=== PATIENT | male | born 1950 | race Caucasian/White ===

== ENCOUNTER 2020-10-08 07:05 | Outpatient (REF) | payer OTHER, SELFPAY ==
[2020-10-08 12:09] LABS: Cholesterol 124 mg/dL; HDL Cholesterol 36 mg/dL; LDL Cholesterol Calculated 61 mg/dl; Triglycerides 138 mg/dL
== END 2020-10-08 07:06 | disposition home or self-care (01) ==
LOC: HO.HMGCLDS 07:05
PROVIDERS: PCP Nurse Practitioner Family; Visit Provider Nurse Practitioner Family
DX: E78.5 Hyperlipidemia, unspecified (principal)
CPT/HCPCS: 36415; 80061

== ENCOUNTER 2020-11-26 07:47 | Outpatient (REF) | payer OTHER, SELFPAY ==
[2020-11-26 11:50] LABS: Alanine Aminotransferase 27 U/L (0-40); Albumin Level 4.4 g/dL (3.5-5.0); Alkaline Phosphatase 70 U/L (39-117); Anion Gap 14 (12-20); Aspartate Amino Transferase 24 U/L (5-37); Bilirubin Total 1.5 mg/dL (0.0-1.0); Blood Urea Nitrogen 25 mg/dL (9-16); Calcium 9.5 mg/dL (8.4-10.2); Carbon Dioxide 31 mmol/L (22-29); Chloride 103 mmol/L (96-108); Cholesterol 122 mg/dL; Estimated Glomerular Filt Rate 55; Glucose Fasting 100 mg/dL (60-99); HDL Cholesterol 39 mg/dL; LDL Cholesterol Calculated 68 mg/dl; Potassium 3.8 mmol/L (3.3-5.1); Sodium 144 mmol/L (135-145); Total Protein 6.5 g/dL (6.5-8.0); Triglycerides 79 mg/dL
[2020-11-26 12:12] LABS: Prostate Specific Antigen Scr 1.23 ng/mL (<0.05-4.0); TSH reflex Free T4 0.87 uIU/mL (0.32-4.0)
== END 2020-11-26 07:48 | disposition home or self-care (01) ==
LOC: HO.HMGCLDS 07:47
PROVIDERS: PCP Nurse Practitioner Family; Visit Provider Nurse Practitioner Family
DX: Z00.00 Encounter for general adult medical examination without abnormal findings (principal); R17 Unspecified jaundice; Z12.5 Encounter for screening for malignant neoplasm of prostate
CPT/HCPCS: 36415; 80053; 80061; 84153; 84443

== ENCOUNTER 2020-11-27 08:08 | Outpatient (REF) | payer OTHER, SELFPAY ==
--- NOTE | 2020-11-27 08:10 | EMG_ITS ---
Right tibial and peroneal motor studies were performed. Right superficial peroneal and sural sensory studies were performed and tibial H-reflex was obtained. Paraspinal muscles were tested with a needle. 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 MD HEIDI Bartholomew/GIDEON / [id number]
== END 2020-11-27 08:09 | disposition home or self-care (01) ==
LOC: HO.NEURO 08:08
PROVIDERS: PCP Nurse Practitioner Family; Visit Provider Nurse Practitioner Family
DX: G62.9 Polyneuropathy, unspecified (principal)
CPT/HCPCS: 95886; 95909

== ENCOUNTER 2020-11-27 13:26 | Outpatient (REF) | payer OTHER, SELFPAY ==
--- NOTE | ~2020-11-27 | US_ITS ---
EXAMINATION: US SCROTUM CLINICAL INFORMATION: Left testicular pain. COMPARISON: Ultrasound scrotum 04/06/2017. TECHNIQUE: A sonogram of the scrotum was performed assessing shrestha-scale appearance and color Doppler flow. Spectral Doppler analysis of the arterial and venous flow were performed in the testes bilaterally. FINDINGS: RIGHT: Right testicle measures 3.5 x 2.2 x 3.4 cm, volume 13.6 mL. No focal testicular parenchymal lesions are visualized. Spectral Doppler analysis of the arterial and venous flow is normal in the right testis. Right epididymal head is normal in size. 2 right epididymal cysts are noted, measuring 1 and 0.6 cm in greatest diameter. There is a prominent right-sided varicocele. Blood flow within the epididymis itself appears normal. Small right hydrocele. LEFT: Left testicle measures 3.1 x 2.7 x 3.6 cm, volume 15.5 mL. 2 very small intratesticular cystic foci are noted, measuring 3 and 2 mm in greatest diameter. No focal testicular parenchymal lesions are visualized. Spectral Doppler analysis of the arterial and venous flow is normal in the left testis. Left epididymal head is normal in size. No left hydrocele is seen. A few cysts are present within the left epididymal head, the largest of which measures 3 mm in diameter. There is a large left-sided varicocele Left epididymal Doppler flow is normal. US/US scrotum IMPRESSION: Large bilateral varicoceles, left side greater than right. Multiple epididymal head cysts, right larger than left. Small right hydrocele.
== END 2020-11-27 13:27 | disposition home or self-care (01) ==
LOC: HO.US 13:26
PROVIDERS: PCP Nurse Practitioner Family; Visit Provider Nurse Practitioner Family
DX: N50.812 Left testicular pain (principal)
CPT/HCPCS: 76870

== ENCOUNTER → 2021-01-01 14:51 | Outpatient (BNVA) | payer OTHER, SELFPAY | PROVIDERS: PCP Nurse Practitioner Family; Visit Provider Urology ==

== ENCOUNTER 2021-01-20 11:56 | Outpatient (REF) | payer OTHER, SELFPAY ==
[2021-01-20 14:48] LABS: Influenza A PCR NEGATIVE (Negative); Influenza B PCR NEGATIVE (Negative); Resp Syncy Virus RNA Qual PCR NEGATIVE (Negative); SARS COV2 PCR INHOUSE NEGATIVE (Negative)
== END 2021-01-20 11:57 | disposition home or self-care (01) ==
LOC: HO.LAB 11:56
PROVIDERS: Visit Provider Nurse Practitioner Family
DX: Z20.822 Contact with and (suspected) exposure to COVID-19 (principal); J01.90 Acute sinusitis, unspecified
CPT/HCPCS: 0241U; 36415

== ENCOUNTER 2021-02-02 09:58 | Day surgery (SDC) | payer OTHER, SELFPAY ==
[2021-01-16 13:23] VITALS: BMI 30.2
[2021-02-02 10:15] VITALS: BP 152/71; PULSE 68; RESP 20; TEMP 36.9; O2SAT 95
--- NOTE | 2021-02-02 10:19 | P.CONAN_ITS ---
[facility] Active Problems Active Problems: All Active Problems (Updated 01/20/21 @ 11:56 by Swathi Glass NP) Acute sinusitis (Acute) Physical exam (Acute) Screening PSA (prostate specific antigen) (Acute) Neuropathy (Acute) Left testicular pain (Acute) Elevated bilirubin (Acute) Varicocele (Acute) Past Medical History Medical History COVID-19 vaccine administered GERD (gastroesophageal reflux disease) History of MRSA infection Hx of vertigo Hyperlipidemia Hypertension Sleep apnea Subdural hematoma Family History Family History Father Diabetes Hypertension Mother No problems noted. Surgical History Surgical History H/O colonoscopy History of incision and drainage Hx of appendectomy Hx of varicose vein stripping Social History Social History Are you a primary assurance services manager health care to a significant other at home: No Do you presently have visiting nurse or other home services: No Alcohol intake: current Alcohol intake frequency: a few times a month Patient Tobacco Use Status: Former Tobacco user Quit Date: 1995 Tobacco use type: Cigarette Years Smoked: 5 Use of substances other than those prescribed or required for medical reasons: No Have you been hit, kicked, punched, or otherwise hurt by someone within the past year? If so, by whom?: No Are you DNR?: No Advance Directives: Yes (daughter and ) Advance Directives Information Provided: No Advance Directives on File: No (advised to bring form day of surgery) Advance Directives Date on File: 02/02/21 Recently lost weight without trying: No Eating poorly because of decreased appetite: No Nutrition Risks: No Nutritional Risk Poor oral hygiene: No Meds Allergies Allergy/AdvReac Type Severity Reaction Status Date / Time sulfamethoxazole Allergy Intermediate HIVES Verified 01/20/21 11:20 [From BACTRIM] trimethoprim [From BACTRIM] Allergy Intermediate HIVES Verified 01/20/21 11:20 Home Medications Medication Instructions Recorded Confirmed Last Taken Type lisinopril 10 1 tab PO DAILY 10/22/20 01/16/21 Unknown History mg-hydrochlorothiazide 12.5 mg tablet hydrocortisone-acetic acid 1 %-2 % 5 drp OTIC (EARS) DAILY 01/01/21 01/16/21 Unknown History ear drops meclizine 25 mg tablet 25 mg PO BID PRN 01/01/21 01/16/21 Unknown History omeprazole magnesium [Prilosec OTC] 20 mg PO DAILY 01/16/21 01/16/21 02/02/21 History Exam Exam Date and Time: February 02, 2021 1019 Height,Weight and Vital Signs: Height 5 ft 9 in Weight 92.986 kg Last Vital Signs Temp 98.4 F 02/02/21 10:15 Pulse 68 02/02/21 10:15 Resp 20 02/02/21 10:15 BP 152/71 H 02/02/21 10:15 Pulse Ox 95 02/02/21 10:15 Airway Mallampati Class: II TM Dist: >3cm Neck ROM: Full Assessment and Plan Assessment Anesthesia Assessment: Anesthesia Plan Discussed and Chart Reviewed Final Anesthetic Review NPO: Yes ASA Class: II Final Preanesthetic Review: No Changes in Pt Med Stat, Meds/Allgs Chart Reviewed, Consent Obtained/Reviewed and Anes Risks/Benef Reviewed Patient Risk: Intermediate Procedure Risk: Low Assessment/Block/Sedation in SS: Assess/Block/Sedation-SS Anesthetic Plan Anesthetic Plan: GA Disposition: Standard PACU
[2021-02-02] MEDS: Lactated Ringers 500 ML 20 ML IVCONT (10:30)
--- NOTE | 2021-02-02 10:41 | MHC.SHP ---
Pre-Procedural Eval Section A Date of Service: 02/02/21 The patient is an INPATIENT: No Changes since office visit: No Cold of Flu in the past 2 weeks, No New Medical Problems, No Changes in Medication and No Patient answered all questions The History & Physical has been completed within 30 days and I have reviewed it.: Yes Section B Chief Complaint: scrotal varices Allergies: Allergies Allergy/AdvReac Type Severity Reaction Status Date / Time sulfamethoxazole Allergy Intermediate HIVES Verified 01/20/21 11:20 [From BACTRIM] trimethoprim [From BACTRIM] Allergy Intermediate HIVES Verified 01/20/21 11:20 Plan Diagnosis/Plan: Unchanged ( left testicular denervation) I have reviewed the history and physical and performed a pertinent physical examination on my patient. No changes have occurred unless specified.
--- NOTE | 2021-02-02 12:32 | P.OP_ITS ---
Operative Note Operative Note Date of Service: 02/02/21 Narrative: PreOperative Diagnosis: persistent left orchalgia Post Operative Diagnosis: same Procedure: left subinguinal microscopic denervation of the testicular cord In varicocelectomy Surgeon: Dr William Jha Anesthesia: general Indications for procedure: this is a 70-year-old male. Persistent left testicular pain. Procedure: After informed consent was verified the patient was brought to the operating room and placed in a supine position. anesthesia was administered per protoco l. the patient was prepped and draped in sterile fashion. Safety pause was performed. Antibiotics had been given. The left inguinal canal was palpated. A subinguinal incision was marked. The a karen was infiltrated with local anesthetic. Using a 15 blade incision was made through the skin into the subcutaneous tissue. Dissection was taken down to the level of the cord. Cord was isolated in elevated to the skin level. This was placed on a tongue depressor backboard. Fat around the cord was divided. The outer layer of muscle sheath was divided circumferentially as part of the denervation procedure. A bipolar was used in order to minimize cautery spread. Veins were skeletonized. The cord itself was very atretic. This 3 primary veins were then isolated and divided. 3-0 silk was used to tie each end before the intervening segment was divided. Care was taken to leave lymphatics. The bundle was checked with a Doppler in 1 vessel identified as the artery. Once this area had been managed the cord was released back into the incision. The wound was irrigated. Tissue was reapproximated using interrupted 3-0 Vicryl sutures. Skin edges reapproximated using a running 4-0 Monocryl suture. Final dressing was placed He tolerated the procedure well was extubated in operating room transferred in stable condition to the recovery area. Pathology: none Drains: none
[2021-02-02 12:40] VITALS: BP 147/71; PULSE 60; RESP 16; TEMP 36.4; O2SAT 97
[2021-02-02 12:45] VITALS: BP 159/63; PULSE 66; RESP 16; O2SAT 98
[2021-02-02 12:50] VITALS: BP 106/66; PULSE 62; RESP 16; O2SAT 97
[2021-02-02 12:55] VITALS: BP 123/71; PULSE 67; RESP 16; O2SAT 93
[2021-02-02 13:10] VITALS: BP 131/72; PULSE 60; RESP 16; TEMP 36.4; O2SAT 94
== END 2021-02-02 13:54 | disposition home or self-care (01) ==
PROVIDERS: PCP Nurse Practitioner Family; Visit Provider Urology
PROC: (CPT 55530; principal; 2021-02-02 11:20)
DX: I86.1 Scrotal varices (principal); N50.812 Left testicular pain; Z86.14 Personal history of Methicillin resistant Staphylococcus aureus infection; I10 Essential (primary) hypertension; G47.33 Obstructive sleep apnea (adult) (pediatric); E78.5 Hyperlipidemia, unspecified; Z79.899 Other long term (current) drug therapy; Z88.2 Allergy status to sulfonamides; Z88.8 Allergy status to other drugs, medicaments and biological substances; Z87.891 Personal history of nicotine dependence
CPT/HCPCS: 55530; J0690; J1100; J1885; J2405; J3010

== ENCOUNTER → 2021-02-16 13:00 | Outpatient (BNVA) | payer OTHER, SELFPAY | PROVIDERS: PCP Nurse Practitioner Family ==

== ENCOUNTER → 2021-03-04 09:44 | Outpatient (BNVA) | payer OTHER, SELFPAY | PROVIDERS: PCP Nurse Practitioner Family; Visit Provider Urology ==

== ENCOUNTER → 2021-04-07 08:40 | Outpatient (BNVA) | payer OTHER, SELFPAY | PROVIDERS: PCP Nurse Practitioner Family; Visit Provider Urology ==

== ENCOUNTER 2021-04-10 09:40 | Outpatient (REF) | payer OTHER, SELFPAY ==
[2021-04-10 11:40] LABS: Bilirubin Direct 0.3 mg/dL (0.0-0.5); Bilirubin Total 0.6 mg/dL (0.0-1.0)
[2021-04-17 01:41] LABS: Testosterone, Total 233 ng/dL (250-1100)
[2021-04-18 15:45] LABS: Testosterone, Total 221 ng/dL (250-1100)
== END 2021-04-10 09:41 | disposition home or self-care (01) ==
LOC: HO.HMGCLDS 09:40
PROVIDERS: PCP Nurse Practitioner Family; Visit Provider Urology
DX: R68.82 Decreased libido (principal); E29.1 Testicular hypofunction; R17 Unspecified jaundice
CPT/HCPCS: 36415; 82247; 82248; 84402; 84403

== ENCOUNTER 2021-04-17 13:25 | Outpatient (REF) | payer OTHER, SELFPAY ==
[2021-04-22 13:46] LABS: Testosterone, Total 282 ng/dL (250-1100)
== END 2021-04-17 13:26 | disposition home or self-care (01) ==
LOC: HO.HMGCLDS 13:25
PROVIDERS: PCP Nurse Practitioner Family; Visit Provider Urology
DX: R68.82 Decreased libido (principal)
CPT/HCPCS: 36415; 84403

== ENCOUNTER → 2021-04-24 09:38 | Outpatient (BNVA) | payer OTHER, SELFPAY | PROVIDERS: PCP Nurse Practitioner Family; Visit Provider Urology ==

== ENCOUNTER → 2021-04-28 09:38 | Outpatient (BNVA) | payer OTHER, SELFPAY | PROVIDERS: PCP Nurse Practitioner Family; Visit Provider Urology ==

== ENCOUNTER 2021-06-08 | Outpatient (REF) | payer OTHER, SELFPAY | END 2021-06-08 00:01 | disposition home or self-care (01) | LOC: HO.LNP | PROVIDERS: Visit Provider Physician Assistant Medical | DX: Z13.89 Encounter for screening for other disorder (principal) ==

== ENCOUNTER 2021-06-08 17:03 | Outpatient (REF) | payer OTHER, SELFPAY ==
--- NOTE | ~2021-06-08 | XR_ITS ---
EXAMINATION: XR chest 2V CLINICAL INFORMATION: Cough COMPARISON: Prior chest x-ray 05/06/2020 TECHNIQUE: XR chest 2V Lungs and Blanquita: Linear opacity left lung base probably platelike atelectasis. This is chronic unchanged. Pleura: Normal. Costophrenic angles are sharp. No pneumothorax. Heart: Heart mildly enlarged unchanged. No failure. Pericardial fat pad seen best on lateral view unchanged. Mediastinum: The mediastinum is within normal limits.. Bones: Skeletal structures included are normal for patient's age. XR/XR chest 2V IMPRESSION: No acute change. No radiographic evidence of acute infiltrates.
== END 2021-06-08 17:04 | disposition home or self-care (01) ==
LOC: HO.HMGCX 17:03
PROVIDERS: PCP Nurse Practitioner Family; Visit Provider Physician Assistant Medical
DX: Z20.822 Contact with and (suspected) exposure to COVID-19 (principal); R05.9 Cough, unspecified
CPT/HCPCS: 71046; U0003; U0005

== ENCOUNTER 2021-10-26 08:52 | Outpatient (REF) | payer OTHER, SELFPAY ==
[2021-10-26 11:48] LABS: Appearance Urine CLEAR; Color Urine YELLOW; Glucose Urine UA NEG (NEG); Leukocyte Esterase Urine NEG (NEG); Nitrite Urine NEG (NEG); Urine Blood NEG (NEG); Urine Ketones NEG (NEG); Urine Protein NEG (NEG-TRACE)
[2021-10-26 12:24] LABS: TSH reflex Free T4 1.02 uIU/mL (0.32-4.0)
[2021-10-26 12:35] LABS: Alanine Aminotransferase 35 U/L (0-40); Albumin Level 4.6 g/dL (3.5-5.0); Alkaline Phosphatase 65 U/L (39-117); Anion Gap 14 (12-20); Aspartate Amino Transferase 22 U/L (5-37); Blood Urea Nitrogen 27 mg/dL (9-16); Calcium 10.1 mg/dL (8.4-10.2); Carbon Dioxide 27 mmol/L (22-29); Chloride 104 mmol/L (96-108); Cholesterol 121 mg/dL; Estimated Glomerular Filt Rate 48; Glucose Fasting 138 mg/dL (60-99); HDL Cholesterol 39 mg/dL; LDL Cholesterol Calculated 62 mg/dl; Sodium 141 mmol/L (135-145); Total Protein 6.9 g/dL (6.5-8.0); Triglycerides 104 mg/dL
== END 2021-10-26 08:53 | disposition home or self-care (01) ==
LOC: HO.HMGCLDS 08:52
PROVIDERS: PCP Nurse Practitioner Family; Visit Provider Nurse Practitioner Family
DX: Z00.00 Encounter for general adult medical examination without abnormal findings (principal); Z12.5 Encounter for screening for malignant neoplasm of prostate
CPT/HCPCS: 36415; 80053; 80061; 81003; 84153; 84443

== ENCOUNTER 2021-11-09 09:11 | Outpatient (REF) | payer OTHER, SELFPAY ==
--- NOTE | ~2021-11-09 | XR_ITS ---
EXAMINATION: XR CHEST CLINICAL INFORMATION: Pneumonia COMPARISON: 06/08/2021 TECHNIQUE: 2 views of the chest were obtained. FINDINGS: The lungs are well expanded. Streaky opacities at the left base are noted. No pleural effusion or pneumothorax. No edema. The cardiomediastinal silhouette is normal in size. No acute osseous abnormality. XR/XR chest 2V IMPRESSION: Streaky opacities at the left base are similar to prior suggestive of chronic scarring. There may be atelectasis. No dense consolidation.
== END 2021-11-09 09:12 | disposition home or self-care (01) ==
LOC: HO.HMGCX 09:11
PROVIDERS: Visit Provider Internal Medicine
DX: J18.9 Pneumonia, unspecified organism (principal)
CPT/HCPCS: 71046

== ENCOUNTER 2021-12-08 08:40 | Outpatient (REF) | payer OTHER, SELFPAY ==
[2021-12-08 11:33] LABS: MANUAL DIFF FLAG NO
[2021-12-08 11:49] LABS: Basophils Percent Auto 0.5 % (0-2); Eosinophils Absolute Auto 0.1 X10*3/uL (0.0-0.4); Eosinophils Percent Auto 1.7 % (0-4); Hematocrit 51.2 % (42.0-52.0); Hemoglobin 17.5 g/dl (14.0-18.0); Imm Gran Abs Auto 0.02 X10*3/uL (0.00-0.03); Imm Gran Pct Auto 0.3 % (0.0-0.4); Lymphocytes Absolute Auto 1.2 X10*3/uL (1.2-4.9); Lymphocytes Percent Auto 19.5 % (20-40); Mean Corpuscular HGB Conc 34.2 g/dl (31.0-36.0); Mean Corpuscular Hemoglobin 30.5 pg (27.0-33.0); Mean Corpuscular Volume 89.2 fL (80.0-98.0); Mean Platelet Volume 9.8 fL (9.4-12.4); Monocytes Absolute Auto 0.5 X10*3/uL (0.1-1.2); Monocytes Percent Auto 7.6 % (2-11); Neutrophils Absolute Auto 4.2 x10*3/uL (2.0-8.3); Neutrophils Percent Auto 70.4 % (45-73); Platelet Count 176 X10*3/uL (160-400); Red Blood Count 5.74 X10*6/uL (4.60-5.80); Red Cell Distribution Width 12.1 % (11.0-16.0); White Blood Count 5.9 X10*3/uL (4.8-10.8)
[2021-12-08 11:50] LABS: Estimated Average Glucose 137 mg/dL; Hemoglobin A1c % 6.4 %
[2021-12-08 11:52] LABS: Alanine Aminotransferase 31 U/L (0-40); Albumin Level 4.2 g/dL (3.5-5.0); Alkaline Phosphatase 62 U/L (39-117); Anion Gap 12 (12-20); Aspartate Amino Transferase 21 U/L (5-37); Bilirubin Total 0.8 mg/dL (0.0-1.0); Blood Urea Nitrogen 19 mg/dL (9-16); Calcium 9.2 mg/dL (8.4-10.2); Carbon Dioxide 28 mmol/L (22-29); Chloride 106 mmol/L (96-108); Cholesterol 131 mg/dL; Estimated Glomerular Filt Rate 50; Glucose Fasting 131 mg/dL (60-99); HDL Cholesterol 38 mg/dL; LDL Cholesterol Calculated 71 mg/dl; Potassium 4.3 mmol/L (3.3-5.1); Sodium 142 mmol/L (135-145); Total Protein 6.2 g/dL (6.5-8.0); Triglycerides 111 mg/dL
[2021-12-08 12:17] LABS: TSH reflex Free T4 0.94 uIU/mL (0.32-4.0)
== END 2021-12-08 08:41 | disposition home or self-care (01) ==
LOC: HO.HMGCLDS 08:40
PROVIDERS: PCP Nurse Practitioner Family; Visit Provider Nurse Practitioner Family
DX: R17 Unspecified jaundice (principal); R73.01 Impaired fasting glucose
CPT/HCPCS: 36415; 80053; 80061; 83036; 84443; 85025

== ENCOUNTER 2022-01-29 08:06 | Outpatient (REF) | payer OTHER, SELFPAY ==
--- NOTE | ~2022-01-29 | CT_ITS ---
EXAMINATION: CT CHEST WITHOUT CONTRAST CLINICAL INFORMATION: Streaky opacities left lung base. COMPARISON: None. TECHNIQUE: Multidetector volumetric CT imaging of the chest was done. Axial MIP volume rendering provided. Sagittal and coronal reformatted images were obtained. This CT examination was performed using dose optimization techniques as appropriate, variously including the following: *Automated exposure control *Adjustment of mA and/or kV according to patient size (this includes techniques or standardized protocols for targeted exams where dose is matched to indication/reason for exam; i.e. extremities or head) *Use of iterative reconstruction technique DLP: 208 mGy-cm. FINDINGS: CONFECTIONERY MAKER: Unremarkable. LUNGS: The lungs are well-expanded without any acute pneumonic process. Mild atelectatic changes are seen right lower lobe medial basal segment, anterior basal segment left lower lobe and lingula and medial segment of right middle lobe. There is a 2 mm nodule right lung apex image 82/7, 3 mm nodule left upper lobe axial image 103/7, 2 mm calcified nodule left upper lobe lateral segment image 194/7, 196/7 MEDIASTINUM: The thyroid lobes are symmetrical and normal. The central trachea and bronchi are widely patent. Heart size and the great vessels are normal caliber. There is no pericardial effusion. No abnormal size mediastinal or hilar lymph nodes seen. Trace coronary artery calcification. PLEURA: There is no pleural effusion. No pleural mass or thickening. AXILLA: No lymphadenopathy. UPPER ABDOMEN: There is a small hypodense lesion measuring 1.76 cm in the right hepatic lobe. Otherwise, the rest of the visualized liver, spleen, pancreas and bilateral adrenal glands are unremarkable. There are bilateral renal cysts. The largest upper pole left kidney measures 14 cm in AP length. OSSEOUS STRUCTURES: There is mild degenerative disc changes throughout dorsal spine. No aggressive lytic or sclerotic process seen. CT/CT chest wo con IMPRESSION: Multiple small calcified and noncalcified pulmonary nodules, none suspicious. Recommend 1 year follow-up based on patient risk factors. Fleischner guidelines were followed.
== END 2022-01-29 08:07 | disposition home or self-care (01) ==
LOC: HO.CT 08:06
PROVIDERS: PCP Nurse Practitioner Family; Visit Provider Nurse Practitioner Family
DX: J98.4 Other disorders of lung (principal); R06.2 Wheezing
CPT/HCPCS: 71250

== ENCOUNTER 2022-05-03 08:08 | Outpatient (REF) | payer MEDICARE, OTHER, SELFPAY ==
[2022-05-03 11:26] LABS: MANUAL DIFF FLAG NO
[2022-05-03 11:34] LABS: Basophils Percent Auto 0.5 % (0-2); Eosinophils Absolute Auto 0.1 X10*3/uL (0.0-0.4); Eosinophils Percent Auto 1.7 % (0-4); Hematocrit 53.6 % (42.0-52.0); Hemoglobin 17.9 g/dl (14.0-18.0); Imm Gran Abs Auto 0.02 X10*3/uL (0.00-0.03); Imm Gran Pct Auto 0.3 % (0.0-0.4); Lymphocytes Absolute Auto 1.1 X10*3/uL (1.2-4.9); Lymphocytes Percent Auto 18.2 % (20-40); Mean Corpuscular HGB Conc 33.4 g/dl (31.0-36.0); Mean Corpuscular Hemoglobin 29.8 pg (27.0-33.0); Mean Corpuscular Volume 89.3 fL (80.0-98.0); Mean Platelet Volume 9.8 fL (9.4-12.4); Monocytes Absolute Auto 0.4 X10*3/uL (0.1-1.2); Monocytes Percent Auto 7.3 % (2-11); Neutrophils Absolute Auto 4.1 x10*3/uL (2.0-8.3); Platelet Count 183 X10*3/uL (160-400); Red Cell Distribution Width 12.2 % (11.0-16.0); White Blood Count 5.8 X10*3/uL (4.8-10.8)
[2022-05-03 11:42] LABS: Estimated Average Glucose 117 mg/dL; Hemoglobin A1c % 5.7 %
[2022-05-03 11:47] LABS: Appearance Urine Clear; Color Urine Yellow; Glucose Urine UA Negative (Negative); Leukocyte Esterase Urine Negative (Negative); Nitrite Urine Negative (Negative); PH 6.5 (5.0-9.0); Urine Blood Negative (Negative); Urine Ketones Negative (Negative); Urine Protein Negative (Neg-Trace)
[2022-05-03 12:17] LABS: Alanine Aminotransferase 25 U/L (0-40); Albumin Level 4.4 g/dL (3.5-5.0); Alkaline Phosphatase 66 U/L (39-117); Anion Gap 16 (12-20); Aspartate Amino Transferase 22 U/L (5-37); Bilirubin Total 0.8 mg/dL (0.0-1.0); Blood Urea Nitrogen 21 mg/dL (9-16); Calcium 9.4 mg/dL (8.4-10.2); Carbon Dioxide 27 mmol/L (22-29); Chloride 102 mmol/L (96-108); Cholesterol 113 mg/dL; Estimated Glomerular Filt Rate 47; Glucose Fasting 129 mg/dL (60-99); HDL Cholesterol 35 mg/dL; LDL Cholesterol Calculated 62 mg/dl; Potassium 4.4 mmol/L (3.3-5.1); Sodium 141 mmol/L (135-145); Total Protein 6.4 g/dL (6.5-8.0); Triglycerides 83 mg/dL
[2022-05-03 12:19] LABS: TSH reflex Free T4 0.92 uIU/mL (0.32-4.0)
[2022-05-03 12:48] LABS: Microalbum/Creatinine Ratio Ur 18.8 ug/mg cr
== END 2022-05-03 08:09 | disposition home or self-care (01) ==
LOC: HO.HMGCLDS 08:08
PROVIDERS: PCP Nurse Practitioner Family; Visit Provider Nurse Practitioner Family
DX: I10 Essential (primary) hypertension (principal); R73.01 Impaired fasting glucose
CPT/HCPCS: 36415; 80053; 80061; 81003; 82043; 83036; 84443; 85025

== ENCOUNTER → 2022-10-21 08:16 | Outpatient (BNVA) | payer MEDICARE, OTHER, SELFPAY | PROVIDERS: PCP Nurse Practitioner Family; Visit Provider Nurse Practitioner Family | DX: G47.30 Sleep apnea, unspecified (principal); R06.83 Snoring | CPT/HCPCS: 99202 ==

== ENCOUNTER → 2022-11-04 09:47 | Outpatient (REF) | payer MEDICARE, OTHER, SELFPAY | LOC: HO.SL 09:47 | PROVIDERS: PCP Nurse Practitioner Family; Visit Provider Nurse Practitioner Family | DX: Z13.89 Encounter for screening for other disorder (principal) ==

== ENCOUNTER 2022-12-03 07:52 | Outpatient (REF) | payer MEDICARE, OTHER, SELFPAY ==
[2022-12-03 11:39] LABS: MANUAL DIFF FLAG NO
[2022-12-03 11:54] LABS: Appearance Urine Clear; Color Urine Yellow; Glucose Urine UA Negative (Negative); Leukocyte Esterase Urine Negative (Negative); Nitrite Urine Negative (Negative); Urine Blood Negative (Negative); Urine Ketones Negative (Negative); Urine Protein Trace mg/dL (Neg-Trace)
[2022-12-03 12:01] LABS: Basophils Absolute Auto 0.1 X10*3/uL (0.0-0.2); Basophils Percent Auto 0.9 % (0-2); Eosinophils Absolute Auto 0.1 X10*3/uL (0.0-0.4); Hematocrit 52.9 % (42.0-52.0); Hemoglobin 17.5 g/dl (14.0-18.0); Imm Gran Abs Auto 0.01 X10*3/uL (0.00-0.03); Imm Gran Pct Auto 0.2 % (0.0-0.4); Lymphocytes Absolute Auto 1.5 X10*3/uL (1.2-4.9); Lymphocytes Percent Auto 22.2 % (20-40); Mean Corpuscular HGB Conc 33.1 g/dl (31.0-36.0); Mean Corpuscular Hemoglobin 29.9 pg (27.0-33.0); Mean Corpuscular Volume 90.4 fL (80.0-98.0); Monocytes Absolute Auto 0.6 X10*3/uL (0.1-1.2); Monocytes Percent Auto 8.3 % (2-11); Neutrophils Absolute Auto 4.4 x10*3/uL (2.0-8.3); Neutrophils Percent Auto 66.4 % (45-73); Platelet Count 184 X10*3/uL (160-400); Red Blood Count 5.85 X10*6/uL (4.60-5.80); Red Cell Distribution Width 12.2 % (11.0-16.0); White Blood Count 6.6 X10*3/uL (4.8-10.8)
[2022-12-03 12:18] LABS: Alanine Aminotransferase 19 U/L (0-40); Albumin Level 4.2 g/dL (3.5-5.0); Alkaline Phosphatase 64 U/L (39-117); Anion Gap 13 (12-20); Aspartate Amino Transferase 17 U/L (5-37); Bilirubin Total 1.2 mg/dL (0.0-1.0); Blood Urea Nitrogen 24 mg/dL (9-16); Calcium 9.3 mg/dL (8.4-10.2); Carbon Dioxide 30 mmol/L (22-29); Chloride 105 mmol/L (96-108); Cholesterol 122 mg/dL; Estimated Glomerular Filt Rate 50; Glucose Fasting 130 mg/dL (60-99); HDL Cholesterol 34 mg/dL; LDL Cholesterol Calculated 66 mg/dl; Potassium 3.8 mmol/L (3.3-5.1); Sodium 144 mmol/L (135-145); Total Protein 6.2 g/dL (6.5-8.0); Triglycerides 111 mg/dL
[2022-12-03 12:44] LABS: Prostate Specific Antigen Scr 1.52 ng/mL (<0.05-4.0); TSH reflex Free T4 1.05 uIU/mL (0.32-4.0)
== END 2022-12-03 07:53 | disposition home or self-care (01) ==
LOC: HO.HMGCLDS 07:52
PROVIDERS: PCP Nurse Practitioner Family; Visit Provider Nurse Practitioner Family
DX: Z12.5 Encounter for screening for malignant neoplasm of prostate (principal); E11.9 Type 2 diabetes mellitus without complications
CPT/HCPCS: 36415; 80053; 80061; 81003; 84153; 84443; 85025

== ENCOUNTER → 2022-12-27 09:27 | Outpatient (BNVA) | payer MEDICARE, OTHER, SELFPAY | PROVIDERS: PCP Nurse Practitioner Family; Visit Provider Nurse Practitioner Family | DX: G47.30 Sleep apnea, unspecified (principal); R06.83 Snoring | CPT/HCPCS: 99212 ==

== ENCOUNTER 2022-12-30 13:49 | Outpatient (REF) | payer MEDICARE, OTHER, SELFPAY ==
[2022-12-30 16:40] LABS: MANUAL DIFF FLAG NO
[2022-12-30 16:44] LABS: Basophils Absolute Auto 0.1 X10*3/uL (0.0-0.2); Basophils Percent Auto 0.5 % (0-2); Eosinophils Absolute Auto 0.1 X10*3/uL (0.0-0.4); Eosinophils Percent Auto 0.5 % (0-4); Hematocrit 49.3 % (42.0-52.0); Hemoglobin 16.8 g/dl (14.0-18.0); Imm Gran Abs Auto 0.03 X10*3/uL (0.00-0.03); Imm Gran Pct Auto 0.3 % (0.0-0.4); Lymphocytes Absolute Auto 1.5 X10*3/uL (1.2-4.9); Lymphocytes Percent Auto 16.1 % (20-40); Mean Corpuscular HGB Conc 34.1 g/dl (31.0-36.0); Mean Corpuscular Hemoglobin 30.1 pg (27.0-33.0); Mean Corpuscular Volume 88.2 fL (80.0-98.0); Mean Platelet Volume 9.8 fL (9.4-12.4); Monocytes Absolute Auto 0.6 X10*3/uL (0.1-1.2); Monocytes Percent Auto 6.4 % (2-11); Neutrophils Percent Auto 76.2 % (45-73); Platelet Count 170 X10*3/uL (160-400); Red Blood Count 5.59 X10*6/uL (4.60-5.80); White Blood Count 9.2 X10*3/uL (4.8-10.8)
[2022-12-30 17:30] LABS: Ferritin 208 ng/mL (20-250); Folate 17.8 ng/mL (> or = 4.0); Vitamin B12 499 pg/mL (200-900)
[2023-01-04 13:33] LABS: Erythropoietin (EPO) 11.6 mIU/mL (2.6-18.5)
== END 2022-12-30 13:50 | disposition home or self-care (01) ==
LOC: HO.HMGCLDS 13:49
PROVIDERS: PCP Nurse Practitioner Family; Visit Provider Nurse Practitioner Family
DX: R71.8 Other abnormality of red blood cells (principal)
CPT/HCPCS: 36415; 81219; 81270; 81279; 81339; 82607; 82668; 82728; 82746; 85025

== ENCOUNTER 2023-01-06 09:25 | Outpatient (REF) | payer MEDICARE, OTHER, SELFPAY ==
--- NOTE | ~2023-01-06 | US_ITS ---
EXAMINATION: RIGHT LOWER EXTREMITY DEEP VENOUS ULTRASOUND CLINICAL INFORMATION: Right calf pain COMPARISON: Right lower extremity DVT study 10/30/2018 TECHNIQUE: Duplex Doppler imaging with compression maneuvers were performed of the right lower extremity deep venous system. FINDINGS: The visualized common femoral, femoral and popliteal veins demonstrate normal compressibility and color flow without evidence of venous thrombosis. Great saphenous vein demonstrates internal echogenicities consistent with prior ablation. Visualized portions of the calf veins demonstrate normal color fill-in suggesting patency. Within the popliteal fossa there is an irregularly-shaped superficial area which measures approximately 5.6 x 0.9 x 4.8 cm which demonstrates internal echogenicities, color flow and a few punctate calcifications, nonspecific. US/US venous duplex LE RT IMPRESSION: -No evidence of deep venous thrombosis involving the right lower extremity. -Within the popliteal fossa there is an irregularly-shaped superficial area which measures approximately 5.6 x 0.9 x 4.8 cm which demonstrates internal echogenicities, color flow and a few punctate calcifications. This is a nonspecific finding. Hematoma and complex Adame's cyst are the top of the differential, however, color flow raises the possibility of an ill-defined abscess or possibly soft tissue mass. Clinical correlation is recommended. Short-term interval follow-up ultrasound recommended versus further evaluation with cross-sectional imaging, preferably MRI without and with gadolinium.
== END 2023-01-06 09:26 | disposition home or self-care (01) ==
LOC: HO.HMGCX 09:25
PROVIDERS: PCP Nurse Practitioner Family; Visit Provider Nurse Practitioner Family
DX: M79.661 Pain in right lower leg (principal)
CPT/HCPCS: 93971

== ENCOUNTER 2023-01-25 09:31 | Outpatient (REF) | payer MEDICARE, OTHER, SELFPAY ==
--- NOTE | ~2023-01-25 | CT_ITS ---
EXAMINATION: CT CHEST WITHOUT CONTRAST CLINICAL INFORMATION: Follow-up pulmonary nodule COMPARISON: Previous chest CT January 2022 TECHNIQUE: Multidetector volumetric CT imaging of the chest was done. Axial MIP volume rendering provided. Sagittal and coronal reformatted images were obtained. This CT examination was performed using dose optimization techniques as appropriate, variously including the following: *Automated exposure control *Adjustment of mA and/or kV according to patient size (this includes techniques or standardized protocols for targeted exams where dose is matched to indication/reason for exam; i.e. extremities or head) *Use of iterative reconstruction technique DLP: 190 mGy-cm FINDINGS: LUNGS: The small pulmonary nodules are stable. Largest pulmonary nodule is a 3 mm left upper lobe nodule axial image 140 series 7. No new pulmonary nodule. Scarring or subsegmental atelectasis at the lung bases. There is increased dependent peripheral attenuation at the lung bases or cerebral for dependent atelectasis versus early interstitial lung disease. There may be mild traction bronchiolectasis seen at the lung bases. MEDIASTINUM: Normal heart size. No pericardial effusion. Stable low-attenuation soft tissue tissue in the right. Pericardial fat question representing a pericardial cyst versus small mediastinal lymph nodes axial image 37 series 3. No other hilar or mediastinal adenopathy. Normal size thoracic aorta. Normal-appearing thyroid gland. CORONARY ARTERY CALCIFICATION: Mild PLEURA: There is no pleural effusion. No pleural mass or thickening. AXILLA: No lymphadenopathy. UPPER ABDOMEN: Stable liver and bilateral renal cysts. OSSEOUS STRUCTURES: Degenerative changes of the spine and shoulders. Probable right shoulder ossified intra-articular loose bodies.. CT/CT chest wo IV con IMPRESSION: Stable small pulmonary nodules. Subsegmental atelectasis at the lung bases. Question dependent atelectasis versus mild interstitial lung disease at the lung bases. Small stable pericardial cyst versus pericardial lymph nodes. Fleischner guidelines were followed.
== END 2023-01-25 09:32 | disposition home or self-care (01) ==
LOC: HO.CT 09:31
PROVIDERS: PCP Nurse Practitioner Family; Visit Provider Nurse Practitioner Family
DX: R91.8 Other nonspecific abnormal finding of lung field (principal); J98.4 Other disorders of lung
CPT/HCPCS: 71250

== ENCOUNTER → 2023-01-31 | Outpatient (REF) | payer MEDICARE, OTHER, SELFPAY | LOC: HO.SL | PROVIDERS: PCP Nurse Practitioner Family; Visit Provider Nurse Practitioner Family | DX: I83.11 Varicose veins of right lower extremity with inflammation (principal); M71.20 Synovial cyst of popliteal space [Baker], unspecified knee; G47.30 Sleep apnea, unspecified | CPT/HCPCS: 95806; 99212 ==

== ENCOUNTER 2023-02-07 08:23 | Outpatient (REF) | payer MEDICARE, OTHER, SELFPAY ==
--- NOTE | ~2023-02-07 | US_ITS ---
EXAMINATION: BILATERAL LOWER EXTREMITY VENOUS ULTRASOUND (Reflux Exam) CLINICAL INDICATION: Varicose veins of right lower extremity with inflammation COMPARISON: Prior lower extremity ultrasounds, most recently 01/06/2023 TECHNIQUE: Color flow triplex imaging and compression Doppler was performed to evaluate both the deep and the superficial systems bilaterally. To evaluate the superficial system, the examination was performed in the upright position. Color-flow Doppler ultrasound and compression ultrasound were utilized. In addition, maneuvers were utilized to demonstrate reflux. FINDINGS: 1. DEEP VENOUS ULTRASOUND OF THE RIGHT LOWER EXTREMITY: Common Femoral Vein: Compressible, normal respiratory variation and augmented flow. Femoral vein: Compressible, normal color flow and augmentation. Popliteal Vein: Compressible, normal augmentation. Deep Reflux: There is no evidence of reflux in the deep system in either the common femoral vein or the popliteal vein. Within the popliteal fossa there is a 4.5 x 0.7 x 1.7 cm structure containing small amount of fluid and has slightly ill-defined margins which could represent a complex Adame's cyst or other process. 2. SUPERFICIAL ULTRASOUND WITH DOPPLER OF RIGHT LOWER EXTREMITY GREAT SAPHENOUS VEIN: Patient has a history of prior great saphenous vein ablation. Portions of the vessel. We recanalized. Saphenofemoral junction: 0.9 cm; Reflux: No evidence of reflux. Proximal thigh: 0.6 cm; Reflux: No evidence of reflux. There are post-thrombotic changes with webs Mid thigh: There is a diminutive remnant of the great saphenous vein with minimal to no flow. Below this level uncertain if there has been removed cannulization of the great saphenous vein versus reconstitution by multiple varicosities. Above knee: 0.2 cm; Reflux: Greater than 2328 At knee: 0.3 cm; Reflux: No evidence of reflux. Below knee: 0.2 cm; Reflux: Greater than 2444 Mid calf: 0.2 cm; Reflux: No evidence of reflux. Ankle: 0.2 cm; Reflux: 836 DUPLICATED GREAT SAPHENOUS VEIN: There is a lateral accessory saphenous vein which measures 0.2 cm at the saphenofemoral junction, 0.2 cm at the mid thigh. Neither segment demonstrates evidence of reflux. SMALL SAPHENOUS VEIN: Saphenopopliteal junction: 0.4 cm; No evidence of reflux. Mid calf: 0.3 cm; No evidence of reflux. Distal calf: 0.2 cm; No evidence of reflux. VEIN OF GIACOMINI: None Imaged. PERFORATORS: There is a 0.3 cm email marketing intern located 25 cm in the calcaneus with reflux time greater than 2844 ms. VARICOSITIES: At least 5 varicosities are visualized. Distal thigh: 0.3 cm; greater than 2612 ms Distal thigh: 0.3 cm; greater than 2048 ms Proximal calf: 0.3 cm; greater than 2376 ms Mid calf: 0.3 cm; Greater than 2776 ms Distal calf: 0.3 cm; 964 ms 3. DEEP VENOUS ULTRASOUND OF THE LEFT LOWER EXTREMITY: Common Femoral Vein: Compressible, normal respiratory variation and augmented flow. Femoral vein: Compressible, normal color flow and augmentation. Popliteal Vein: Compressible, normal augmentation. Deep Reflux: There is no evidence of reflux in the deep system in either the common femoral vein or the popliteal vein. Within the popliteal fossa there is a hypoechoic area with trace fluid which measures 7.4 x 0.7 x 1.7 cm with irregular margins. This could represent a complex Adame cyst versus other process. 4. SUPERFICIAL ULTRASOUND WITH DOPPLER OF LEFT LOWER EXTREMITY GREAT SAPHENOUS VEIN: Saphenofemoral junction: 0.9 cm; Reflux: No evidence of reflux. Proximal thigh: 0.6 cm; Reflux: No evidence of reflux. Mid thigh: 0.3 cm; Reflux: No evidence of reflux. Above knee: 0.4 cm; Reflux: No evidence of reflux. At knee: 0.4 cm; Reflux: No evidence of reflux. Below knee: 0.3 cm; Reflux: 1968 ms Mid calf: 0.2 cm; Reflux: 2252 ms Ankle: 0.2 cm; Reflux: No evidence of reflux. DUPLICATED GREAT SAPHENOUS VEIN: There is a lateral accessory saphenous vein which measures 0.2 cm at the saphenofemoral junction and 0.1 cm at the mid thigh. No reflux is demonstrated. SMALL SAPHENOUS VEIN: Saphenopopliteal junction: 0.3 cm; No evidence of reflux. Mid calf: 0.2 cm; No evidence of reflux. Distal calf: 0.2 cm; No evidence of reflux. VEIN OF GIACOMINI: None Imaged. PERFORATORS: There are 3 email marketing intern veins visualized. There is a 0.3 cm email marketing intern 33 cm from the calcaneus with reflux time 1104 ms At the mid thigh there is a 0.5 cm email marketing intern, no reflux At the mid thigh there is a 0.2 cm email marketing intern, no reflux VARICOSITIES: There is a proximal calf varicosity which measures 0.4 cm with reflux time 1324 ms. US/US venous duplex LE BI IMPRESSION: On the right there are changes relating to prior ablation of the great saphenous vein. The proximal thigh segment appears to have recanalized and at the mid thigh there is a rather diminutive occluded remnant. Below this level uncertain if there has been recanalization of the great saphenous vein or there has been reconstitution via multiple varicosities. There is a 0.3 cm email marketing intern which demonstrates reflux 25 cm from the calcaneus and there are multiple additional varicosities which measure 3 mm and demonstrate reflux. On the left there is venous reflux within the below the knee and midcalf segments of the great saphenous vein. There is a 0.3 cm email marketing intern which is 33 cm from the calcaneus and demonstrate reflux as well as a 0.4 cm varicosity at the proximal calf which demonstrate reflux.
== END 2023-02-07 08:24 | disposition home or self-care (01) ==
LOC: HO.US 08:23
PROVIDERS: PCP Nurse Practitioner Family; Visit Provider Surgery Vascular Surgery
DX: I83.11 Varicose veins of right lower extremity with inflammation (principal)
CPT/HCPCS: 93970

== ENCOUNTER → 2023-02-23 20:30 | Outpatient (REF) | payer MEDICARE, OTHER, SELFPAY | LOC: HO.SL 20:30 | PROVIDERS: PCP Nurse Practitioner Family; Visit Provider Nurse Practitioner Family | DX: G47.30 Sleep apnea, unspecified (principal) | CPT/HCPCS: 95810 ==

== ENCOUNTER → 2023-02-23 21:11 | Outpatient (BNV) | payer MEDICARE, OTHER, SELFPAY | PROVIDERS: PCP Nurse Practitioner Family; Visit Provider Psychiatry & Neurology Neurology | DX: G47.61 Periodic limb movement disorder (principal) | CPT/HCPCS: 95810 ==

== ENCOUNTER 2023-02-28 09:03 | Outpatient (AMB) | payer MEDICARE, OTHER, SELFPAY ==
--- NOTE | 2023-02-28 09:51 | AM.OFFWIN_ITS ---
Intake Vital Signs 02/28/23 09:55 Height 5 ft 9 in BP 128/70 Blood Pressure Location Rt brachial Position Sitting Pulse 74 Pulse Source Pulse Oximeter Temp 96.9 F Temp Source Temporal Artery Scan Pulse Oximetry (%) 96 Oxygen Delivery Method Room Air Intake Visit Reasons: EP, Laceration left side of chest Intake Note: Pt is here c/o having an infected open wound on the left side of his chest. Patient Tobacco Use Status: Former Tobacco user Quit Date: 1995 Allergies sulfamethoxazole [From BACTRIM] Allergy (Intermediate, Verified 02/28/23 09:55) HIVES trimethoprim [From BACTRIM] Allergy (Intermediate, Verified 02/28/23 09:55) HIVES Do you need a note to return to daycare/school/sports/work: No HPI HPI Comments History of Present Illness Details 72-year-old male presents with an infected wound to the left chest wall. States that he had a sleep study, and when he removed the electrode to the left chest wall, it ripped the skin off with it. Patient states that he is prone to MRSA infections, and states that this wound is consistent with prior infections. He has been hospitalized for MRSA infection with sepsis in the past, and states that he feels that he is at the point where he needs antibiotics. He does not report any fevers or chills, but states that this wound is red, tender, and weeping purulent fluid. [facility] Medical History Cellulitis COVID-19 vaccine administered GERD (gastroesophageal reflux disease) History of MRSA infection Hx of vertigo Hyperlipidemia Hypertension Sleep apnea Subdural hematoma Surgical History H/O brain surgery H/O colonoscopy History of incision and drainage Hx of appendectomy Hx of varicose vein stripping Family History Father Diabetes Hypertension Mother No problems noted. Social History Housing: House Are you a primary acute care clinical nurse specialist to a significant other at home: No Do you presently have visiting nurse or other home services: No Alcohol intake: current Alcohol intake frequency: a few times a month Patient Tobacco Use Status: Former Tobacco user Quit Date: 1995 Tobacco use type: Cigarette Years Smoked: 5 e-Cigarette/Vaping Use: Never Used Second Hand Smoke Exposure: No Advance Directives Date on File: 02/02/21 Current occupational status: retired Cognitive needs: No Hearing needs: No Vision needs: No Review of Systems Const Details: Constitutional: No Fever, No Chills Cardiovascular: No Chest Pain, No SOB Respiratory: No Cough, No Dyspnea Gastrointestinal: No Nausea, No Vomiting, No Diarrhea, No abdominal Pain Genitourinary: No Dysuria, No Hematuria Musculoskeletal: no joint pain, No Myalgias, No Joint Swelling Skin: No Skin lacerations, positive wound to left chest wall Neuro: No Weakness, No Numbness, No Paresthesias, No Loss of Consciousness, No Dizziness, No Headache All systems reviewed & are unremarkable except as noted in HPI and below Physical Exam Vital Signs: Last Vital Signs Temp 96.9 F 02/28/23 09:55 Pulse 74 02/28/23 09:55 BP 128/70 02/28/23 09:55 Pulse Ox 96 02/28/23 09:55 Oxygen Delivery Method Room Air 02/28/23 09:55 Appearance: Alert. Oriented X3. No acute distress. Eyes: Pupils equal, round and reactive to light. Neck: Normal inspection. Neck supple. CVS: Normal heart rate and rhythm. Pulses normal. Respiratory: No respiratory distress. Breath sounds normal. Abdomen: Soft and nontender. Skin: 5 cm in diameter erythematous open area to the left chest wall, actively weeping Extremities: Gait well balanced well coordinated Neuro: No motor deficit. No sensory deficit. Cranial nerves 2-12 intact Assessment & Plan Assessment & Plan (1) Wound infection: Code(s): T14.8XXA - Other injury of unspecified body region, initial encounter; L08.9 - L ocal infection of the skin and subcutaneous tissue, unspecified Plan 72-year-old male with past medical history of diabetes, hypertension, hyperlipidemia, history of MRSA presents with the wound to the left chest wall. Patient states that he had a sleep study last week, when he pulled off the electrode pull the skin off with it. He is reporting a red, tender, and weeping open area to the left chest wall. He feels that this is consistent with prior MRSA infections, and states that he usually receives doxycycline for his infected wounds. Patient does not report any fevers or chills, and has full range of motion to all of his extremities. The rash site measures approximately 5 cm in diameter, is erythematous, and actively weeping. Considering that this patient has a history of MRSA, is diabetic, will treat with doxycycline and cefuroxime. I did discuss this plan with the patient, who agrees with this plan. Patient verbalized understanding of discharge instructions. Verbalized understandings of signs and symptoms indicating need for emergent intervention. Medications: New doxycycline monohydrate 100 mg PO BID 10 days 20 caps 0RF cefuroxime axetil 500 mg PO Q12H 10 days 20 tabs 0RF Patient Instructions: You were evaluated for infected wound to the left chest wall. Take doxycycline 100 mg every 12 hours for the next 10 days. This medication has a photosensitive reaction, you must wear long sleeves, hat, and sunscreen while going outside. Take cefuroxime 500 mg every 12 hours for the next 10 days. Stop taking your omeprazole while taking this medication. You may resume taking omeprazole once you complete this medication. Thank you for choosing this urgent care for evaluation. Please follow-up with primary care physician as needed. Return to the emergency department for any new, concerning, or worsening symptoms. Coding Level of Care Code Est Pt Level 3 (93542) Diagnoses Wound infection T14.8XXA; L08.9
[2023-02-28 09:55] VITALS: BP 128/70; PULSE 74; TEMP 36.1; O2SAT 96
== END 2023-02-28 10:32 | disposition home or self-care (01) ==
PROVIDERS: PCP Nurse Practitioner Family; Visit Provider Nurse Practitioner Family
DX: T14.8XXA Other injury of unspecified body region, initial encounter (principal); L08.9 Local infection of the skin and subcutaneous tissue, unspecified
CPT/HCPCS: 99213

== ENCOUNTER 2023-03-10 10:11 | Outpatient (AMB) | payer MEDICARE, OTHER, SELFPAY ==
--- NOTE | 2023-03-10 10:25 | MHC.OFFVIS ---
Intake Vital Signs 03/10/23 10:26 Height 5 ft 9 in Weight 198 lb BMI 29.2 Intake Visit Reasons: follow up 02/07/2023 Intake Note: follow up 02/07/2023, Pt was re-referred for mass on Right popliteal fossa, Hx of Micro. Pt states that over the last few weeks it has not been as painful Accompanied by: Self / Same As Patient Allergies sulfamethoxazole [From BACTRIM] Allergy (Intermediate, Verified 03/10/23 10:28) HIVES trimethoprim [From BACTRIM] Allergy (Intermediate, Verified 03/10/23 10:28) HIVES HPI follow up 02/07/2023 HPI Details Very pleasant 72-year-old gentleman presents for follow-up regarding venous insufficiency. He had actually seen us back in 2019 where he Nat had done venous interventions on the right lower extremity. He had some right calf swelling and discomfort that brought him for re-evaluation. He now presents for follow-up with venous insufficiency testing. [facility] Medical History Cellulitis COVID-19 vaccine administered GERD (gastroesophageal reflux disease) History of MRSA infection Hx of vertigo Hyperlipidemia Hypertension Sleep apnea Subdural hematoma Surgical History H/O brain surgery H/O colonoscopy History of incision and drainage Hx of appendectomy Hx of varicose vein stripping Family History Father Diabetes Hypertension Mother No problems noted. Social History Housing: House Are you a primary customer care associate to a significant other at home: No Do you presently have visiting nurse or other home services: No Alcohol intake: current Alcohol intake frequency: a few times a month Patient Tobacco Use Status: Former Tobacco user Quit Date: 1995 Tobacco use type: Cigarette Years Smoked: 5 e-Cigarette/Vaping Use: Never Used Second Hand Smoke Exposure: No Advance Directives Date on File: 02/02/21 Current occupational status: retired Cognitive needs: No Hearing needs: No Vision needs: No Review of Systems Const Reports as per HPI ENT Reports no additional complaints Card Denies chest pain, Denies chest pain at rest and Denies chest pain with activity Resp Denies chest congestion and Denies cough GI Reports no additional complaints Musc Details: pain over varicosities, aching of lower extremities, swelling, cramping, heaviness and tiredness, itching Denies abnormal gait Skin/Breast Reports pruritus and Denies wounds Neuro Reports no additional complaints and Denies abnormal gait Psych Denies no additional complaints Physical Exam Vital Signs: BMI result Body Mass Index 29.2 Const General: cooperative, healthy appearing and comfortable Orientation/consciousness: oriented to person, oriented to place and oriented to time Neck Carotids: no bruits Chest Chest palpation & inspection: normal inspection of the chest and normal palpation of entire chest wall Resp Effort & Inspection: normal respiratory effort and able to speak in complete sentences Cardio Rate: regular rate Heart sounds: S1 normal heart sound present and S2 normal heart sound present Peripheral pulses: Peripheral pulses 2+ throughout GI Inspection: Yes normal to inspection Skin Other: +2 edema, large rope-like varicosities greater than 4 mm right calf and medial thigh CEAP Classification C4 - skin color changes Ep - Etiology Primary As - superficial veins P - reflux General skin exam: dry skin Neuro General: oriented to person, oriented to place and oriented to time Extrem Right lower extremity: full ROM, normal capillary refill and edema Left lower extremity: full ROM, normal capillary refill and edema Psych Mental Status: mental status grossly normal Results Reviewed Results Reviewed: Brief summary of venous insufficiency testing is as follows: right great saphenous vein: negative right small saphenous vein: negative right accessory vein: none present left great saphenous vein: negative left small saphenous vein: negative left accessory vein: none present Please note there is no evidence of any venous aneurysms or significant tortuosity Assessment & Plan Assessment & Plan (1) Varicose veins of right lower extremity with inflammation: Comment: June 2019- right GSV Radiofrequency ablation and microphlebectomy x2 Code(s): I83.11 - Varicose veins of right lower extremity with inflammation Plan: This patient has varicose veins with inflammation. They continue to be a source of discomfort for the patient. The patient has tried conservative treatment with compression, leg elevation and exercise program for over 3 months time. They have been compliant with all treatment. This has provided minimal relief for the patient. I do not anticipate this course of treatment will alter the underlying etiology. The patient has been scheduled for lower extremity venous treatment inclusive of --- right lower extremity microphlebectomy. Risks, benefits, and complications of this procedure has been discussed in detail with the patient including but not limited to bleeding, infection, and the development of a DVT. The patient has demonstrated a clear understanding and has consented. We will schedule the patient as soon as possible. Thank you for allowing us to participate in this patient's care. If there are any questions or concerns please do not hesitate to contact us. Coding Level of Care Code Est Pt Level 4 (38484) Diagnoses Varicose veins of right lower extremity with inflammation I83.11
[2023-03-10 10:26] VITALS: BMI 29.2
== END 2023-03-10 11:06 | disposition home or self-care (01) ==
PROVIDERS: PCP Nurse Practitioner Family; Visit Provider Surgery Vascular Surgery
DX: I83.11 Varicose veins of right lower extremity with inflammation (principal)
CPT/HCPCS: 99214

== ENCOUNTER → 2023-03-10 10:11 | Outpatient (BNVA) | payer MEDICARE, OTHER, SELFPAY | PROVIDERS: PCP Nurse Practitioner Family; Visit Provider Surgery Vascular Surgery | DX: I83.11 Varicose veins of right lower extremity with inflammation (principal) | CPT/HCPCS: 99212 ==

== ENCOUNTER 2023-03-28 09:04 | Day surgery (SDC) | payer MEDICARE, OTHER, SELFPAY ==
[2023-03-23 15:11] VITALS: BMI 29.2
[2023-03-28] VITALS (8 sets, daily range): BP systolic 126–165; BP diastolic 68–82; PULSE 68–83; RESP 14–18; TEMP 36.1–36.9; O2SAT 94–98; BMI 30.1
--- NOTE | 2023-03-28 10:08 | P.CONAN_ITS ---
HPI - Anesthesia Eval Consult details Narrative: Varicous veins PMFSH Active Problems Active Problems: All Active Problems (Updated 03/23/23 @ 15:02 by Dianna Mcintosh RN) Physical exam (Acute) Screening PSA (prostate specific antigen) (Acute) Neuropathy (Acute) Left testicular pain (Acute) Elevated bilirubin (Acute) Varicocele (Acute) Acute sinusitis (Acute) Cellulitis (Acute) Low libido (Acute) HTN (hypertension) (Acute) Cough (Acute) Elevated serum creatinine (Acute) Elevated fasting blood sugar (Acute) Pneumonia (Acute) Acute bronchitis (Acute) Wheezing (Acute) Pulmonary scarring (Acute) Pulmonary nodules (Acute) Diabetes (Acute) Snoring (Acute) Elevated hematocrit (Acute) Calf pain (Acute) Varicose veins of right lower extremity with inflammation (Acute) Pericardial cyst (Acute) Wound infection (Acute) Sleep apnea (Acute) Cellulitis (Acute) Past Medical History Medical History (Updated 03/23/23 @ 15:02 by Dianna Mcintosh RN) Cellulitis GERD (gastroesophageal reflux disease) History of MRSA infection Hx of vertigo Hyperlipidemia Hypertension Sleep apnea Subdural hematoma Family History Family History Father Diabetes Hypertension Mother No problems noted. Family history of problems with anesthesia: No Surgical History Surgical History (Updated 03/23/23 @ 15:03 by Dianna Mcintosh RN) H/O brain surgery H/O colonoscopy History of incision and drainage History of surgery Hx of appendectomy Hx of varicose vein stripping History of Problems with Anesthesia: No Social History Social History Housing: House Are you a primary care management coordinator to a significant other at home: No Do you presently have visiting nurse or other home services: No Alcohol intake: current Alcohol intake frequency: a few times a week Patient Tobacco Use Status: Former Tobacco user Quit Date: 1989 Tobacco use type: Cigarette Years Smoked: 5 Smoked in Last 30 Days: No e-Cigarette/Vaping Use: Never Used Second Hand Smoke Exposure: No Use of substances other than those prescribed or required for medical reasons: No Are you DNR?: No Advance Directives: No Advance Directives Information Provided: Yes Advance Directives Date on File: 02/02/21 Current occupational status: retired Cognitive needs: No Hearing needs: No Vision needs: No Meds Allergies Allergy/AdvReac Type Severity Reaction Status Date / Time sulfamethoxazole Allergy Intermediate HIVES Verified 03/28/23 09:16 [From BACTRIM] trimethoprim [From BACTRIM] Allergy Intermediate HIVES Verified 03/28/23 09:16 Home Medications Medication Instructions Recorded Confirmed Last Taken Type meclizine 25 mg tablet 25 mg PO BID PRN Vertigo 01/01/21 03/28/23 Unknown History omeprazole magnesium 20 mg 20 mg PO DAILY 01/16/21 03/28/23 03/28/23 History tablet,delayed release (Prilosec OTC) cetirizine 10 mg tablet (All Day 10 mg PO DAILY PRN Allergy Symptoms 08/31/22 03/28/23 Unknown History Allergy (cetirizine)) Exam Exam Date and Time: March 28, 2023 1008 Height,Weight and Vital Signs: Height 5 ft 9 in Weight 92.533 kg Last Vital Signs Temp 97.5 F 03/28/23 09:17 Pulse 68 03/28/23 09:17 Resp 16 03/28/23 09:17 Pulse Ox 97 03/28/23 09:17 O2 Del Method Room Air 03/28/23 09:17 Airway Mallampati Class: II TM Dist: >3cm Neck ROM: Full Heart: rrr Lungs: cta Assessment and Plan Assessment Anesthesia Assessment: Anesthesia Plan Discussed and Chart Reviewed Final Anesthetic Review Family History of Problems with Anesthesia: No History of Problems with Anesthesia: No NPO: Yes ASA Class: III Final Preanesthetic Review: No Changes in Pt Med Stat, Meds/Allgs Chart Reviewed, Consent Obtained/Reviewed and Anes Risks/Benef Reviewed Patient Risk: Intermediate Procedure Risk: Low Anesthetic Plan Anesthetic Plan: GA and Agree w/ Assess. and Plan Disposition: Standard PACU
[2023-03-28] MEDS: Lactated Ringers 1,000 ML 50 ML IVCONT (11:33)
--- NOTE | 2023-03-28 12:58 | MHC.SHP ---
Pre-Procedural Eval Section A Date of Service: 03/28/23 The patient is an INPATIENT: No Changes since office visit: Yes Patient answered all questions The History & Physical has been completed within 30 days and I have reviewed it.: Yes Section B Chief Complaint: Varicose veins of right lower extremity w/ inflamm Allergies: Allergies Allergy/AdvReac Type Severity Reaction Status Date / Time sulfamethoxazole Allergy Intermediate HIVES Verified 03/28/23 09:16 [From BACTRIM] trimethoprim [From BACTRIM] Allergy Intermediate HIVES Verified 03/28/23 09:16 Plan I have reviewed the history and physical and performed a pertinent physical examination on my patient. No changes have occurred unless specified. Time Spent With Patient Time: Total time managing care of this patient today ____ minutes.
--- NOTE | 2023-03-28 12:58 | W.PM.OPN ---
Operative Note Operative Note Date of Service: 03/28/23 Narrative: Operative note by [facility] Preoperative diagnosis: Right leg varicose veins with inflammation Postoperative diagnosis: Same Procedure:1 right leg microphlebectomy(27) 2. Ligation of venous cluster x2 Surgeon:Jasper Castañeda M.D. Entry Level Accounting Clerk: None Anesthesia: General Specimens: 1 Drains: None Estimated blood loss: 100 mL Indications: 72-year-old gentleman with a prior history of varicosities which have been treating since 2019 had recurrence of cluster varicosities in particular the right medial thigh and calf. He now presents for operative microphlebectomy. Due to the significant extent of this it was elected to do this in the operating room. The patient has signed the informed consent after reviewing risks, complications, benefits, and alternatives previously discussed with the patient. The patient was given the opportunity to ask any additional questions or voice any concerns. All questions were answered to the patient's satisfaction. Procedure in detail: Varicose veins were marked in the standing position on the right leg and the patient was then placed in the supine position. The right lower extremity was prepared and draped to allow knee flexion in the sterile field. The patient had large superficial varicose veins with significant symptoms of pain. It was therefore determined to perform microphlebectomies of the clusters of varicose veins. The patient had bulging varicose veins which were previously marked in the standing position. A small stab incision was made longitudinally directly overlying the varicose vein in the calf and the varicose vein was grasped with a hemostat aided by a vein hook. It was then dissected as far proximally and distally as possible and avulsed. A total of 27 stab incisions were made and the procedure of stab phlebectomies was repeated 27 times. In addition there was 2 clusters of varicosities noted in the posterior aspect of the calf. Incision was made over the base. This was ligated with a 3-0 poly Sorb suture. Residual varicosities was removed. This had to be done in 2 separate locations. Hemostasis was checked and stab incision sites were closed with steri-strips and sterile dressing was given with gauze and krilex wrap followed by an lexis bandage. There were no complications and blood loss was minimal. Post-Op instructions were given and a follow-up appointment was recommended. This note is constructed using voice recognition software. While every effort has been made to ensure accuracy, director of manufacturing operations errors may have been included. Thank you for allowing me to participate in the care of your patient. Yours sincerely, Jasper Castañeda MD, FACS, R.P.V.I.
[2023-03-28] MEDS: Acetaminophen 325 MG TABLET 650 MG PO (13:35)
== END 2023-03-28 14:13 | disposition home or self-care (01) ==
PROVIDERS: PCP Nurse Practitioner Family; Visit Provider Surgery Vascular Surgery
PROC: (CPT 37766; principal; 2023-03-28 10:40)
DX: I83.11 Varicose veins of right lower extremity with inflammation (principal); I10 Essential (primary) hypertension; E11.9 Type 2 diabetes mellitus without complications; E78.5 Hyperlipidemia, unspecified; G47.33 Obstructive sleep apnea (adult) (pediatric); Z86.14 Personal history of Methicillin resistant Staphylococcus aureus infection; Z86.79 Personal history of other diseases of the circulatory system; Z98.890 Other specified postprocedural states; Z88.2 Allergy status to sulfonamides; Z87.891 Personal history of nicotine dependence
CPT/HCPCS: 37766; 37785; 88304; J0690; J1100; J2405; J2795; J3010

== ENCOUNTER → 2023-03-28 09:04 | Outpatient (BNV) | payer MEDICARE, OTHER, SELFPAY | PROVIDERS: PCP Nurse Practitioner Family; Visit Provider Surgery Vascular Surgery | DX: I83.11 Varicose veins of right lower extremity with inflammation (principal) | CPT/HCPCS: 37766; 37785 ==

== ENCOUNTER 2023-04-01 14:36 | Outpatient (AMB) | payer MEDICARE, OTHER, SELFPAY ==
[2023-04-01 14:42] VITALS: BP 154/82; PULSE 97; O2SAT 95; BMI 29.3
--- NOTE | 2023-04-01 14:42 | A.OFFVIS_ITS ---
Intake Vital Signs 04/01/23 14:42 Height 5 ft 9 in Weight 198 lb 6.656 oz BMI 29.3 BP 154/82 H Blood Pressure Location Lt brachial Position Sitting Pulse 97 Pulse Source Doppler Pulse Oximetry (%) 95 Oxygen Delivery Method Room Air Intake Visit Reasons: pulm nodule Allergies sulfamethoxazole [From BACTRIM] Allergy (Intermediate, Verified 04/01/23 14:46) HIVES trimethoprim [From BACTRIM] Allergy (Intermediate, Verified 04/01/23 14:46) HIVES HPI pulm nodule HPI0 Details 72-year-old gentleman, remote minimal smoker in his 40s, with no prior history of lung disease referred for evaluation of abnormal CT scan. Patient h as had CT chest in 2021 demonstrating calcified nodules. He had a repeat scan in 2022 showing stable nodules, buts. Patient complains of intermittent dyspnea when laying down, including paroxysmal nocturnal dyspnea. He also complains of mild bilateral lower extremity edema. He denies family or personal history of lung disease or personal history of exposure to industrial dusts. [facility] Medical History (Updated 04/01/23 @ 15:07 by Duc Us MD) Diabetes (~2021) GERD (gastroesophageal reflux disease) History of MRSA infection (~2014) History of subdural hematoma (~2017) Hx of vertigo Hyperlipidemia Hypertension Sleep apnea Surgical History (Updated 04/01/23 @ 14:33 by Antoinette Jones PA-C) History of appendectomy History of brain surgery History of colonoscopy History of endoscopy History of incision and drainage History of varicose vein stripping History of vasectomy S/P scrotal varicocelectomy Family History Father Diabetes Hypertension Mother No problems noted. Social History Housing: House Are you a primary rn long term care to a significant other at home: No Do you presently have visiting nurse or other home services: No Alcohol intake: current Alcohol intake frequency: a few times a week Patient Tobacco Use Status: Former Tobacco user Quit Date: 1989 Tobacco use type: Cigarette Years Smoked: 5 e-Cigarette/Vaping Use: Never Used Second Hand Smoke Exposure: No Advance Directives Date on File: 02/02/21 Current occupational status: retired Cognitive needs: No Hearing needs: No Vision needs: No Review of Systems Const Denies daytime sleepiness, Denies excessive sweating, Denies fatigue, Denies fever(s), Denies lethargy, Denies malaise, Denies night sweats, Denies snoring and Denies weight loss Eyes Denies blurry vision and Denies itchy eyes ENT Denies nasal congestion, Denies post nasal drip, Denies sinus pain, Denies sinus pressure and Denies other ( Thrush) Card Denies chest pain, Reports pedal edema, Denies dyspnea, Reports orthopnea and Reports paroxysmal nocturnal dyspnea Resp Denies cough, Denies hemoptysis, Denies excessive phlegm production, Denies dyspnea, Denies snoring and Denies wheezing GI Denies abdominal pain and Denies heartburn Musc Denies myalgias, Denies arthralgias and Denies joint swelling Skin/Breast Denies rash Neuro Denies memory loss and Denies seizure-like activity Psych Denies abnormal sleep pattern, Denies anxiety and Denies memory loss Endo Denies excessive sweating, Denies fatigue and Denies heat intolerance Bandar/Lymph Denies easy bruising Aller/Immun Denies itchy eyes, Denies seasonal rhinorrhea and Denies wheezing Physical Exam Vital Signs: Last Vital Signs Pulse 97 04/01/23 14:42 BP 154/82 H 04/01/23 14:42 Pulse Ox 95 04/01/23 14:42 Oxygen Delivery Method Room Air 04/01/23 14:42 BMI result Body Mass Index 29.3 Const General: no acute distress and alert Nutritional Appearance: not obese Orientation/consciousness: Other orientation findings ( oriented) HEENT Head: Yes atraumatic Eyes General: appearance normal, both eyes and all related structures Sclerae: sclerae normal EOM: EOMs intact bilaterally Neck Neck: Yes supple Lymphatic: no lymphadenopathy noted Resp Effort & Inspection: normal respiratory effort and no use of accessory muscles Auscultation: clear to auscultation bilaterally Cardio Rate: regular rate Rhythm: regular rhythm Heart sounds: no gallops, no murmurs and no rubs Skin General skin exam: other ( warm) Extrem General: No clubbing, No cyanosis and Yes edema (1+ bilateral) Assessment & Plan Assessment & Plan (1) Dyspnea on exertion: Code(s): R06.09 - Other forms of dyspnea Plan: Appears to have mostly orthopnea nocturnal dyspnea is his symptoms. Will obtain 2D echocardiogram for further evaluation. Will also obtain pulmonary function testing. (2) Pulmonary nodules: Code(s): R91.8 - Other nonspecific abnormal finding of lung field Plan: Results of CT chest reviewed, stable pulmonary nodules, will repeat CT chest in 12 months, if stable at that time, no further imaging follow-up is required. Orders: Orders PFT pulmonary function test Today R06.09 - Other forms of dyspnea Coding Level of Care Code New Pt Level 4 (47848) Diagnoses Dyspnea on exertion R06.09 Pulmonary nodules R91.8
== END 2023-04-01 15:03 | disposition home or self-care (01) ==
PROVIDERS: PCP Nurse Practitioner Family; Visit Provider Internal Medicine Pulmonary Disease
DX: R06.09 Other forms of dyspnea (principal); R91.8 Other nonspecific abnormal finding of lung field
CPT/HCPCS: 99204

== ENCOUNTER → 2023-04-01 14:36 | Outpatient (BNVA) | payer MEDICARE, OTHER, SELFPAY | PROVIDERS: PCP Nurse Practitioner Family; Visit Provider Internal Medicine Pulmonary Disease | DX: R91.8 Other nonspecific abnormal finding of lung field (principal); R06.09 Other forms of dyspnea | CPT/HCPCS: 99202 ==

== ENCOUNTER 2023-04-12 07:27 | Outpatient (REF) | payer MEDICARE, OTHER, SELFPAY ==
--- NOTE | 2023-04-12 08:06 | PFT_ITS ---
FINDINGS: Forced vital capacity 66%. FEV1 is 78%. FEV1/FVC ratio is 86. VCQ17-18 125% and MVV 78%. Post bronchodilator therapy, there is slight increase in [id number], but no change in FVC or FEV1. Total lung capacity 63%, residual volume 72%. Diffusion capacity 117%. CONCLUSION: 1. Moderately severe restrictive pulmonary disorder. 2. No obstructive airway disorder. 3. Clinical correlation recommended. MD ANTWAN Powell/MODL / [id number]
== END 2023-04-12 07:28 | disposition home or self-care (01) ==
LOC: HO.RESP 07:27
PROVIDERS: PCP Nurse Practitioner Family; Visit Provider Internal Medicine Pulmonary Disease
DX: R06.09 Other forms of dyspnea (principal); I83.11 Varicose veins of right lower extremity with inflammation
CPT/HCPCS: 94010; 94727; 94729; 99212

== ENCOUNTER → 2023-04-12 08:06 | Outpatient (BNV) | payer MEDICARE, OTHER, SELFPAY | PROVIDERS: PCP Nurse Practitioner Family; Visit Provider Internal Medicine | DX: G47.33 Obstructive sleep apnea (adult) (pediatric) (principal); R91.8 Other nonspecific abnormal finding of lung field | CPT/HCPCS: 94060; 94727; 94729 ==

== ENCOUNTER 2023-04-12 10:55 | Outpatient (AMB) | payer MEDICARE, OTHER, SELFPAY ==
[2023-04-12 10:55] VITALS: BMI 29.2
--- NOTE | 2023-04-12 10:55 | A.OFFVIS_ITS ---
Intake Vital Signs 04/12/23 10:55 Height 5 ft 9 in Weight 198 lb BMI 29.2 Intake Visit Reasons: 2 week follow up 03/28 Right leg micro Intake Note: 2 week follow up Right LE Micro in the OR 03/28/23, w/ Hx of Right LE micro & Right GSV RFA 06/2019. Pt states Right LE is doing well a little sore to the touch and has some bruising Accompanied by: Self / Same As Patient Allergies sulfamethoxazole [From BACTRIM] Allergy (Intermediate, Verified 04/12/23 11:00) HIVES trimethoprim [From BACTRIM] Allergy (Intermediate, Verified 04/12/23 11:00) HIVES HPI 2 week follow up 03/28 Right leg micro HPI Details Very pleasant 72-year-old gentleman status post right leg microphlebectomy. In general feels that his varicosities have significantly improved. Swelling and discomfort have improved. He is concerned about some varicosities of the left lower extremity. He now presents for routine postprocedure follow-up. [facility] Medical History Diabetes (~2021) GERD (gastroesophageal reflux disease) History of MRSA infection (~2014) History of subdural hematoma (~2017) Hx of vertigo Hyperlipidemia Hypertension Sleep apnea Surgical History History of appendectomy History of brain surgery History of colonoscopy History of endoscopy History of incision and drainage History of varicose vein stripping History of vasectomy S/P scrotal varicocelectomy Family History Father Diabetes Hypertension Mother No problems noted. Social History Housing: House Are you a primary resident care aid to a significant other at home: No Do you presently have visiting nurse or other home services: No Alcohol intake: current Alcohol intake frequency: a few times a week Patient Tobacco Use Status: Former Tobacco user Quit Date: 1989 Tobacco use type: Cigarette Years Smoked: 5 e-Cigarette/Vaping Use: Never Used Second Hand Smoke Exposure: No Advance Directives Date on File: 02/02/21 Current occupational status: retired Cognitive needs: No Hearing needs: No Vision needs: No Review of Systems Const Reports as per HPI ENT Reports no additional complaints Card Denies chest pain, Denies chest pain at rest and Denies chest pain with activity Resp Denies chest congestion and Denies cough GI Reports no additional complaints Musc Details: pain over varicosities, aching of lower extremities, swelling, cramping, heaviness and tiredness, itching Denies abnormal gait Skin/Breast Reports pruritus and Denies wounds Neuro Reports no additional complaints and Denies abnormal gait Psych Denies no additional complaints Physical Exam Vital Signs: BMI result Body Mass Index 29.2 Const General: cooperative, healthy appearing and comfortable Orientation/consciousness: oriented to person, oriented to place and oriented to time Neck Carotids: no bruits Chest Chest palpation & inspection: normal inspection of the chest and normal palpation of entire chest wall Resp Effort & Inspection: normal respiratory effort and able to speak in complete sentences Cardio Rate: regular rate Heart sounds: S1 normal heart sound present and S2 normal heart sound present Peripheral pulses: Peripheral pulses 2+ throughout GI Inspection: Yes normal to inspection Skin Other: +2 edema, large rope-like varicosities greater than 4 mm left calf CEAP Classification C4 - skin color changes Ep - Etiology Primary As - superficial veins P - reflux Right lower extremity incisions well healed General skin exam: dry skin Neuro General: oriented to person, oriented to place and oriented to time Extrem Right lower extremity: full ROM, normal capillary refill and edema Left lower extremity: full ROM, normal capillary refill and edema Psych Mental Status: mental status grossly normal Assessment & Plan Assessment & Plan (1) Varicose veins of right lower extremity with inflammation: Comment: June 2019- right GSV Radiofrequency ablation and microphlebectomy x2 03/28/2023- right leg microphlebectomy Code(s): I83.11 - Varicose veins of right lower extremity with inflammation Plan: In short patient has done extremely well with his right lower extremity. We did discuss routine conservative measures including compression elevation and exercise. He would like to see how this improves and would like to conservatively manage the left lower extremity. He will see us back in approximately 1 months time to consider microphlebectomy of the left lower extremity. Thank you for allowing us to assist in his care. If there are any questions or concerns please do not hesitate to contact us. Coding Level of Care Code Est Pt Level 3 (83669) Diagnoses Varicose veins of right lower extremity with inflammation I83.11
== END 2023-04-12 11:28 | disposition home or self-care (01) ==
PROVIDERS: PCP Nurse Practitioner Family; Visit Provider Surgery Vascular Surgery
DX: I83.11 Varicose veins of right lower extremity with inflammation (principal)
CPT/HCPCS: 99213

== ENCOUNTER 2023-05-10 09:13 | Outpatient (AMB) | payer MEDICARE, OTHER, SELFPAY ==
[2023-05-10 09:15] VITALS: BMI 29.2
--- NOTE | 2023-05-10 09:15 | MHC.OFFVIS ---
Intake Vital Signs 05/10/23 09:15 Height 5 ft 9 in Weight 198 lb BMI 29.2 Intake Visit Reasons: 1 month vein check Intake Note: 1 mo follow up Right LE micro 03/28/23, pt has developed a lump on his right calf that is large and hard to touch. Pt states that the lump is painful to the touch or even when elevating his feet. Accompanied by: Self / Same As Patient Allergies sulfamethoxazole [From BACTRIM] Allergy (Intermediate, Verified 05/10/23 09:19) HIVES trimethoprim [From BACTRIM] Allergy (Intermediate, Verified 05/10/23 09:19) HIVES HPI 1 month vein check HPI Details Patient is status post right lower extremity microphlebectomy. He had developed a right calf hematoma in the posterior aspect which was quite large postprocedure. It appeared to be resolving but continues to be a hardened lump. It is of concern to him. Sore some mild discomfort especially when he puts pressure on it. Now presents to us for follow-up evaluation [facility] Medical History History of subdural hematoma (~2017) Diabetes (~2021) History of MRSA infection (~2014) Hx of vertigo Sleep apnea GERD (gastroesophageal reflux disease) Hypertension Hyperlipidemia Surgical History S/P scrotal varicocelectomy History of brain surgery History of endoscopy History of vasectomy History of varicose vein stripping History of appendectomy History of colonoscopy History of incision and drainage Family History Father Diabetes Hypertension Mother No problems noted. Social History Housing: House Are you a primary primary care physician to a significant other at home: No Do you presently have visiting nurse or other home services: No Alcohol intake: current Alcohol intake frequency: a few times a week Patient Tobacco Use Status: Former Tobacco user Quit Date: 1989 Tobacco use type: Cigarette Years Smoked: 5 e-Cigarette/Vaping Use: Never Used Second Hand Smoke Exposure: No Advance Directives Date on File: 02/02/21 Current occupational status: retired Cognitive needs: No Hearing needs: No Vision needs: No Review of Systems Const Reports as per HPI ENT Reports no additional complaints Card Denies chest pain, Denies chest pain at rest and Denies chest pain with activity Resp Denies chest congestion and Denies cough GI Reports no additional complaints Musc Details: pain over varicosities, aching of lower extremities, swelling, cramping, heaviness and tiredness, itching Denies abnormal gait Skin/Breast Reports pruritus and Denies wounds Neuro Reports no additional complaints and Denies abnormal gait Psych Denies no additional complaints Physical Exam Vital Signs: BMI result Body Mass Index 29.2 Const General: cooperative, healthy appearing and comfortable Orientation/consciousness: oriented to person, oriented to place and oriented to time Neck Carotids: no bruits Chest Chest palpation & inspection: normal inspection of the chest and normal palpation of entire chest wall Resp Effort & Inspection: normal respiratory effort and able to speak in complete sentences Cardio Rate: regular rate Heart sounds: S1 normal heart sound present and S2 normal heart sound present Peripheral pulses: Peripheral pulses 2+ throughout GI Inspection: Yes normal to inspection Skin Other: +1 edema, right calf swelling General skin exam: dry skin Neuro General: oriented to person, oriented to place and oriented to time Extrem Right lower extremity: full ROM, normal capillary refill and edema Left lower extremity: full ROM, normal capillary refill and edema Psych Mental Status: mental status grossly normal Assessment & Plan Assessment & Plan (1) Varicose veins of right lower extremity with inflammation: Comment: June 2019- right GSV Radiofrequency ablation and microphlebectomy x2 03/28/2023- right leg microphlebectomy Code(s): I83.11 - Varicose veins of right lower extremity with inflammation Plan: In short patient has undergone right leg microphlebectomy. Does have a right posterior calf hematoma. It is a source of discomfort form. We did discuss conservative measures including compression and an Chris wrap. I have requested that the patient follow up again this Tuesday for re-evaluation. Thank you for allowing us to assist in his care. Coding Level of Care Code Est Pt Level 3 (44462) Diagnoses Varicose veins of right lower extremity with inflammation I83.11
== END 2023-05-10 09:38 | disposition home or self-care (01) ==
PROVIDERS: PCP Nurse Practitioner Family; Visit Provider Surgery Vascular Surgery
DX: I83.11 Varicose veins of right lower extremity with inflammation (principal)
CPT/HCPCS: 99024

== ENCOUNTER → 2023-05-10 09:13 | Outpatient (BNVA) | payer MEDICARE, OTHER, SELFPAY | PROVIDERS: PCP Nurse Practitioner Family; Visit Provider Surgery Vascular Surgery | DX: I97.638 Postprocedural hematoma of a circulatory system organ or structure following other circulatory system procedure (principal); I83.11 Varicose veins of right lower extremity with inflammation | CPT/HCPCS: 99212 ==

== ENCOUNTER 2023-05-13 11:25 | Outpatient (AMB) | payer MEDICARE, OTHER, SELFPAY ==
[2023-05-13 12:39] VITALS: BMI 29.2
--- NOTE | 2023-05-13 12:39 | MHC.OFFVIS ---
Intake Vital Signs 05/13/23 12:39 Height 5 ft 9 in Weight 198 lb BMI 29.2 Intake Visit Reasons: Hematoma Right Leg Allergies sulfamethoxazole [From BACTRIM] Allergy (Intermediate, Verified 05/13/23 12:40) HIVES trimethoprim [From BACTRIM] Allergy (Intermediate, Verified 05/13/23 12:40) HIVES HPI Hematoma Right Leg HPI Details Very pleasant 72-year-old gentleman presents for follow-up evaluation regarding right posterior calf swelling. Unclear etiology of this. It has been a source of pain discomfort form. He now presents for follow-up. [facility] Medical History History of subdural hematoma (~2017) Diabetes (~2021) History of MRSA infection (~2014) Hx of vertigo Sleep apnea GERD (gastroesophageal reflux disease) Hypertension Hyperlipidemia Surgical History S/P scrotal varicocelectomy History of brain surgery History of endoscopy History of vasectomy History of varicose vein stripping History of appendectomy History of colonoscopy History of incision and drainage Family History Father Diabetes Hypertension Mother No problems noted. Social History Housing: House Are you a primary patient care nursing assistant to a significant other at home: No Do you presently have visiting nurse or other home services: No Alcohol intake: current Alcohol intake frequency: a few times a week Patient Tobacco Use Status: Former Tobacco user Quit Date: 1989 Tobacco use type: Cigarette Years Smoked: 5 e-Cigarette/Vaping Use: Never Used Second Hand Smoke Exposure: No Advance Directives Date on File: 02/02/21 Current occupational status: retired Cognitive needs: No Hearing needs: No Vision needs: No Review of Systems Const All systems reviewed & are unremarkable except as noted in HPI and below Reports no additional complaints ENT Reports Normal hearing present Card Denies chest pain, Denies chest pain at rest, Denies chest pain with activity and Denies pedal edema Resp Denies cough GI Denies abdominal pain Musc Denies abnormal gait, Denies muscle cramps and Denies radiating pain into limb Skin/Breast Denies skin ulcer and Denies wounds Neuro Reports Normal hearing present and Denies abnormal gait Psych Reports no additional complaints Physical Exam Vital Signs: BMI result Body Mass Index 29.2 Const General: cooperative, healthy appearing and comfortable Orientation/consciousness: oriented to person, oriented to place and oriented to time HEENT Head: Yes normal to inspection Neck Neck: Yes normal visual inspection Carotids: no bruits Chest Chest palpation & inspection: normal inspection of the chest Resp Effort & Inspection: normal respiratory effort and able to speak in complete sentences Auscultation: clear to auscultation bilaterally, no crackles, no rales, no rhonchi and no wheezes Cardio Rate: regular rate Rhythm: regular rhythm Heart sounds: S1 normal heart sound present and S2 normal heart sound present Bruits: no carotid bruits Peripheral pulses: Peripheral pulses 2+ throughout GI Inspection: Yes normal to inspection Skin Wounds: no wounds Hair: normal Neuro General: oriented to person, oriented to place and oriented to time Cranial nerves: Yes CN's II-XII intact bilaterally and Yes Normal hearing present Cognition (Neuro): normal cognition Motor exam (neuro): 5/5 motor strength present throughout Extrem Other: venous exam: No significant superficial varicosities or spider telangiectasias, minimal edema General: No clubbing, No cyanosis and No edema Psych Appearance: grossly normal Mental Status: mental status grossly normal Speech and movement: Normal speech and movement present Assessment & Plan Assessment & Plan (1) Varicose veins of right lower extremity with inflammation: Comment: June 2019- right GSV Radiofrequency ablation and microphlebectomy x2 03/28/2023- right leg microphlebectomy Code(s): I83.11 - Varicose veins of right lower extremity with inflammation Plan: It appears that there was a seroma in the right posterior calf. This was opened. Dressing was placed. We did discuss conservative measures including compression elevation and exercise with the patient. Would like this to be Chris wrapped at the bare minimum for the next 2 weeks. He will have routine follow-up with us. Thank you for allowing us to participate in his care. Coding Level of Care Code Est Pt Level 3 (16606) Diagnoses Varicose veins of right lower extremity with inflammation I83.11
== END 2023-05-13 11:50 | disposition home or self-care (01) ==
PROVIDERS: PCP Nurse Practitioner Family; Visit Provider Surgery Vascular Surgery
DX: I83.11 Varicose veins of right lower extremity with inflammation (principal)
CPT/HCPCS: 99024

== ENCOUNTER → 2023-05-13 12:49 | Outpatient (REF) | payer MEDICARE, OTHER, SELFPAY | LOC: HO.CARD 12:49 | PROVIDERS: PCP Nurse Practitioner Family; Visit Provider Internal Medicine Pulmonary Disease | DX: R06.09 Other forms of dyspnea (principal) | CPT/HCPCS: 93306; 99212; Q9957 ==

== ENCOUNTER → 2023-05-13 12:51 | Outpatient (BNV) | payer MEDICARE, OTHER, SELFPAY | PROVIDERS: PCP Nurse Practitioner Family; Visit Provider Internal Medicine | DX: R06.09 Other forms of dyspnea (principal) | CPT/HCPCS: 93306 ==

== ENCOUNTER 2023-05-24 08:56 | Outpatient (AMB) | payer MEDICARE, OTHER, SELFPAY ==
--- NOTE | 2023-05-24 08:58 | A.OFFVIS_ITS ---
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 Patient has had CT chest in 2021 demonstrating calcified nodules. He had a repeat scan in 2022 showing stable nodules, buts. Patient complains of intermittent dyspnea when laying down, including paroxysmal nocturnal dyspnea. He also complains of mild bilateral lower extremity edema. He denies family or personal history of lung disease or personal history of exposure to industrial dusts. After the last office visit patient has completed his 2D echocardiogram which was essentially normal and his pulmonary function testing that showed thumb restrictive pulmonary physiology that appears to be related to abdominal obesity. Patient does complain of intermittent nocturnal dyspnea, otherwise denies pulmonary related concerns. [facility] Medical History History of subdural hematoma (~2017) Diabetes (~2021) History of MRSA infection (~2014) Hx of vertigo Sleep apnea GERD (gastroesophageal reflux disease) Hypertension Hyperlipidemia Surgical History S/P scrotal varicocelectomy History of brain surgery History of endoscopy History of vasectomy History of varicose vein stripping History of appendectomy History of colonoscopy History of incision and drainage Family History Father Diabetes Hypertension Mother No problems noted. Social History Housing: House Are you a primary memory care program director to a significant other at home: No Do you presently have visiting nurse or other home services: No Alcohol intake: current Alcohol intake frequency: a few times a week Patient Tobacco Use Status: Former Tobacco user Quit Date: 1989 Tobacco use type: Cigarette Years Smoked: 5 e-Cigarette/Vaping Use: Never Used Second Hand Smoke Exposure: No Advance Directives Date on File: 02/02/21 Current occupational status: retired Cognitive needs: No Hearing needs: No Vision needs: No Review of Systems Const Denies daytime sleepiness, Denies excessive sweating, Denies fatigue, Denies fever(s), Denies lethargy, Denies malaise, Denies night sweats, Denies snoring and Denies weight loss Eyes Denies blurry vision and Denies itchy eyes ENT Denies nasal congestion, Denies post nasal drip, Denies sinus pain, Denies sinus pressure and Denies other ( Thrush) Card Denies chest pain, Denies pedal edema, Denies dyspnea, Denies orthopnea and Denies paroxysmal nocturnal dyspnea Resp Denies cough, Denies hemoptysis, Denies excessive phlegm production, Denies dyspnea, Denies snoring and Denies wheezing GI Denies abdominal pain and Denies heartburn Musc Denies myalgias, Denies arthralgias and Denies joint swelling Skin/Breast Denies rash Neuro Denies memory loss and Denies seizure-like activity Psych Denies abnormal sleep pattern, Denies anxiety and Denies memory loss Endo Denies excessive sweating, Denies fatigue and Denies heat intolerance Bandar/Lymph Denies easy bruising Aller/Immun Denies itchy eyes, Denies seasonal rhinorrhea and Denies wheezing Physical Exam Vital Signs: Last Vital Signs Pulse 67 05/24/23 08:59 BP 134/72 05/24/23 08:59 Pulse Ox 97 05/24/23 08:59 Oxygen Delivery Method Room Air 05/24/23 08:59 BMI result Body Mass Index 29.6 Const General: no acute distress and alert Nutritional Appearance: not obese Orientation/consciousness: Other orientation findings ( oriented) HEENT Head: Yes atraumatic Eyes General: appearance normal, both eyes and all related structures Sclerae: sclerae normal EOM: EOMs intact bilaterally Neck Neck: Yes supple Lymphatic: no lymphadenopathy noted Resp Effort & Inspection: normal respiratory effort and no use of accessory muscles Auscultation: clear to auscultation bilaterally Cardio Rate: regular rate Rhythm: regular rhythm Heart sounds: no gallops, no murmurs and no rubs Skin General skin exam: other ( warm) Extrem General: No clubbing, No cyanosis and No edema Assessment & Plan Assessment & Plan (1) Pulmonary nodules: Code(s): R91.8 - Other nonspecific abnormal finding of lung field Plan: Stable on follow-up CT. Repeat CT is pending for February of 2024, if stable at that time, no further imaging follow-up would be required. (2) Dyspnea on exertion: Code(s): R06.09 - Other forms of dyspnea Plan: Results of pulmonary function testing, CT, and 2D echocardiogram he reviewed. Appears to be mostly related to underlying abdominal obesity. Orders: Orders CT chest wo IV con Today R91.8 - Other nonspecific abnormal finding of lung field Coding Level of Care Code Est Pt Level 4 (97458) Diagnoses Pulmonary nodules R91.8 Dyspnea on exertion R06.09
[2023-05-24 08:59] VITALS: BP 134/72; PULSE 67; O2SAT 97; BMI 29.6
== END 2023-05-24 09:20 | disposition home or self-care (01) ==
PROVIDERS: PCP Nurse Practitioner Family; Referring Provider Nurse Practitioner Family; Visit Provider Internal Medicine Pulmonary Disease
DX: R91.8 Other nonspecific abnormal finding of lung field (principal); R06.09 Other forms of dyspnea
CPT/HCPCS: 99214

== ENCOUNTER → 2023-05-24 08:56 | Outpatient (BNVA) | payer MEDICARE, OTHER, SELFPAY | PROVIDERS: PCP Nurse Practitioner Family; Visit Provider Internal Medicine Pulmonary Disease | DX: R91.8 Other nonspecific abnormal finding of lung field (principal); R06.09 Other forms of dyspnea | CPT/HCPCS: 99212 ==

== ENCOUNTER 2023-05-26 08:56 | Outpatient (AMB) | payer MEDICARE, OTHER, SELFPAY ==
--- NOTE | 2023-05-26 08:57 | A.OFFVIS_ITS ---
Intake Intake Visit Reasons: 2 week follow up Right calf mass excision 05/13/23 Intake Note: pt here for 2 week fu right calf mass excision on pt states that he still feels a bit of pain in it.But that overall he feels like its healing Allergies sulfamethoxazole [From BACTRIM] Allergy (Intermediate, Verified 05/26/23 08:59) HIVES trimethoprim [From BACTRIM] Allergy (Intermediate, Verified 05/26/23 08:59) HIVES HPI 2 week follow up Right calf mass excision 05/13/23 HPI Details Very pleasant 72-year-old gentleman presents for follow-up regarding his right calf. He had undergone right lower extremity microphlebectomy. The developed in area of phlebitis and a collection. This was opened up and there was a seroma expressed. Now it continues to drain and is a source of pain and discomfort form. He was treated on a trial of antibiotics as well of doxycycline. He now presents for follow-up regarding his calf. [facility] Medical History History of subdural hematoma (~2017) Diabetes (~2021) History of MRSA infection (~2014) Hx of vertigo Sleep apnea GERD (gastroesophageal reflux disease) Hypertension Hyperlipidemia Surgical History S/P scrotal varicocelectomy History of brain surgery History of endoscopy History of vasectomy History of varicose vein stripping History of appendectomy History of colonoscopy History of incision and drainage Family History Father Diabetes Hypertension Mother No problems noted. Social History Housing: House Are you a primary director of healthcare systems to a significant other at home: No Do you presently have visiting nurse or other home services: No Alcohol intake: current Alcohol intake frequency: a few times a week Patient Tobacco Use Status: Former Tobacco user Quit Date: 1989 Tobacco use type: Cigarette Years Smoked: 5 e-Cigarette/Vaping Use: Never Used Second Hand Smoke Exposure: No Advance Directives Date on File: 02/02/21 Current occupational status: retired Cognitive needs: No Hearing needs: No Vision needs: No Review of Systems Const All systems reviewed & are unremarkable except as noted in HPI and below Reports no additional complaints ENT Reports Normal hearing present Card Denies chest pain, Denies chest pain at rest, Denies chest pain with activity and Denies pedal edema Resp Denies cough GI Denies abdominal pain Musc Denies abnormal gait, Denies muscle cramps and Denies radiating pain into limb Skin/Breast Denies skin ulcer and Denies wounds Neuro Reports Normal hearing present and Denies abnormal gait Psych Reports no additional complaints Physical Exam Const General: cooperative, healthy appearing and comfortable Orientation/consciousness: oriented to person, oriented to place and oriented to time HEENT Head: Yes normal to inspection Neck Neck: Yes normal visual inspection Carotids: no bruits Chest Chest palpation & inspection: normal inspection of the chest Resp Effort & Inspection: normal respiratory effort and able to speak in complete sentences Auscultation: clear to auscultation bilaterally, no crackles, no rales, no rhonchi and no wheezes Cardio Rate: regular rate Rhythm: regular rhythm Heart sounds: S1 normal heart sound present and S2 normal heart sound present Bruits: no carotid bruits Peripheral pulses: Peripheral pulses 2+ throughout GI Inspection: Yes normal to inspection Skin Other: Right posterior calf approximately 0.2 cm opening along with a hard indurated area surrounding it. No evidence of erythema. Wounds: no wounds Hair: normal Neuro General: oriented to person, oriented to place and oriented to time Cranial nerves: Yes CN's II-XII intact bilaterally and Yes Normal hearing present Cognition (Neuro): normal cognition Motor exam (neuro): 5/5 motor strength present throughout Extrem Other: venous exam: No significant superficial varicosities or spider telangiectasias, minimal edema General: No clubbing, No cyanosis and No edema Psych Appearance: grossly normal Mental Status: mental status grossly normal Speech and movement: Normal speech and movement present Assessment & Plan Assessment & Plan (1) Varicose veins of right lower extremity with inflammation: Comment: June 2019- right GSV Radiofrequency ablation and microphlebectomy x2 03/28/2023- right leg microphlebectomy Code(s): I83.11 - Varicose veins of right lower extremity with inflammation Plan: In short patient has a nonhealing right posterior calf incision. At the current time it had been packed. would recommend changing this to an alginate dressing topically. This will collect all the drainage. Along with changing out to a full on compression stocking as opposed to local Chris wrap. He will follow up with us in approximately 2 weeks time. Should there be any interval changes or evidence of infection he was requested to call us. Thank you for allowing us to assist in his care. If there are questions or concerns please do not hesitate to contact us. Coding Level of Care Code Est Pt Level 3 (55289) Diagnoses Varicose veins of right lower extremity with inflammation I83.11
== END 2023-05-26 09:17 | disposition home or self-care (01) ==
PROVIDERS: PCP Nurse Practitioner Family; Visit Provider Surgery Vascular Surgery
DX: T81.31XA Disruption of external operation (surgical) wound, not elsewhere classified, initial encounter (principal); I83.11 Varicose veins of right lower extremity with inflammation
CPT/HCPCS: 99024

== ENCOUNTER → 2023-05-26 08:56 | Outpatient (BNVA) | payer MEDICARE, OTHER, SELFPAY | PROVIDERS: PCP Nurse Practitioner Family; Visit Provider Surgery Vascular Surgery | DX: I83.11 Varicose veins of right lower extremity with inflammation (principal) | CPT/HCPCS: 99212 ==

== ENCOUNTER 2023-05-30 07:53 | Outpatient (AMB) | payer MEDICARE, OTHER, SELFPAY ==
--- NOTE | 2023-05-30 07:56 | MHC.PC.OV ---
Vital Signs 05/30/23 08:00 Height 5 ft 9 in Weight 196 lb BMI 28.9 BP 130/90 H Blood Pressure Location Lt brachial Position Sitting Pulse 66 Pulse Source Pulse Oximeter Pulse Oximetry (%) 97 Oxygen Delivery Method Room Air Intake Visit Reasons: Annual Physical Allergies sulfamethoxazole [From BACTRIM] Allergy (Intermediate, Verified 05/30/23 08:26) HIVES trimethoprim [From BACTRIM] Allergy (Intermediate, Verified 05/30/23 08:26) HIVES Medication List - Last Reconciled 05/30/23 by Wicho Townsend, [facility]- amoxicillin-pot clavulanate 875-125 mg 1 tab PO BID 10 days atorvastatin 20 mg PO BEDTIME 90 days blood sugar diagnostic (FreeStyle Lite Strips) As directed cetirizine (All Day Allergy (cetirizine)) 10 mg PO DAILY PRN [CPAP supplies Full face mask, headgear, chin strap & cushions Tubing Filters Humidifier chamber] doxycycline monohydrate 100 mg PO BID lisinopril-hydrochlorothiazide 20-12.5 mg 0.5 tabs PO DAILY meclizine 25 mg PO BID PRN omeprazole magnesium (Prilosec OTC) 20 mg PO DAILY Tobacco use date assessed: 08/31/22 Fall risk assessment: No Falls in past year Last assessed Fall Risk: 05/30/23 Dental Screening Dental Screen Date: 05/30/23 Did you have a dental visit in the last 12 months?: Yes Did you have a dental problem in the last 6 months where you did not have access to dental care?: No Was dental information given to patient?: Patient has dentist HPI Annual Physical HPI Details Pt is here for a PE. Will order labs. Colon screen is up to date. PSA is up to date. Pt is a diabetic, on an EUNICE and a statin. A1C in office today is 5.5. Due for microalbumin, will order. Denies polyuria, polydipsia, and neuropathy. Pt denies any signs and symptoms of hypoglycemia and does know how to correct it. Pt is following up with vascular and pulmonology. Pt is currently taking half a tab of lisinopril-hydrochlorothiazide because a full tab makes him dizzy. Encouraged pt to monitor his blood pressure at home. Pt c/o left ear pain. He does have some cerumen noted, will flush in office. Will send augmentin. Denies fever, chills, and dizziness. [facility] Medical History History of subdural hematoma (~2017) Diabetes (~2021) History of MRSA infection (~2014) Hx of vertigo Sleep apnea GERD (gastroesophageal reflux disease) Hypertension Hyperlipidemia Surgical History S/P scrotal varicocelectomy History of brain surgery History of endoscopy History of vasectomy History of varicose vein stripping History of appendectomy History of colonoscopy History of incision and drainage Family History Father Diabetes Hypertension Mother No problems noted. Social History Housing: House Are you a primary account executive healthcare to a significant other at home: No Do you presently have visiting nurse or other home services: No Alcohol intake: current Alcohol intake frequency: a few times a week Patient Tobacco Use Status: Former Tobacco user Quit Date: 1989 Tobacco use type: Cigarette Years Smoked: 5 e-Cigarette/Vaping Use: Never Used Second Hand Smoke Exposure: No Advance Directives Date on File: 02/02/21 Current occupational status: retired Cognitive needs: No Hearing needs: No Vision needs: No Questionnaire Thrive Questionnaire Date Thrive assessed: 08/31/22 JESUS-7 AMB Questionnaire JESUS-7 Date JESUS - 7 assessed: 08/31/22 Source: Developed by Drs. Jeison Sampson, Kenyatta Brock, Marc Medrano and colleagues, with an educational ele from [employer]. Review of Systems Const Denies chills and Denies fever(s) Eyes Denies blurry vision ENT Denies vertigo, Denies dizziness and Denies sore throat Card Denies chest pain at rest, Denies chest pain with activity, Denies diaphoresis, Denies dyspnea and Denies dyspnea on exertion Resp Denies cough, Denies dyspnea, Denies dyspnea on exertion and Denies wheezing GI Denies abdominal pain, Denies melena, Denies hematochezia, Denies constipation, Denies diarrhea and Denies loose stools Denies hematuria Musc Denies numbness and Denies tingling Skin/Breast Denies lesions Neuro Denies vertigo, Denies dizziness, Denies numbness and Denies tingling Psych Denies anxiety, Denies depression, Denies homicidal ideation, Denies suicidal ideation and Denies other (substance abuse) Aller/Immun Denies wheezing Physical exam (Primary Care) Vital Signs: Last Vital Signs Pulse 66 05/30/23 08:00 BP 130/90 H 05/30/23 08:00 Pulse Ox 97 05/30/23 08:00 Oxygen Delivery Method Room Air 05/30/23 08:00 BMI result Body Mass Index 28.9 Tobacco/Smoking Status: Tobacco use Status Tobacco use date assessed 08/31/22 05/30/23 07:58 Patient Tobacco Use Status Former Tobacco user 05/30/23 07:58 Tobacco use type Cigarette 05/30/23 07:58 e-Cigarette/Vaping Use Never Used 05/30/23 07:58 Thrive Assessment: Date of Thrive Assessment Date Thrive assessed 08/31/22 05/30/23 07:58 Const General: cooperative Nutritional Appearance: well nourished Orientation/consciousness: patient oriented x3 HENMT Other: cerumen noted to left ear, after ear lavage TM easily seen, no bulging or erythema Head: Yes normal to inspection, Yes normocephalic and Yes atraumatic Ears: TM normal on the right Eyes General: appearance normal, both eyes and all related structures Alignment and Position: alignment normal and position normal Neck Neck: Yes normal visual inspection and Yes no lymphadenopathy Thyroid: Thyroid normal Resp Effort & Inspection: normal respiratory effort Auscultation: clear to auscultation bilaterally Cardio Rate: regular rate Rhythm: regular rhythm Heart sounds: S1 normal heart sound present, S2 normal heart sound present and no murmurs GI Palpation (GI): Soft to palpation and nontender Auscultation: normal bowel sounds Male General Exam: Yes normal external exam Penis: normal penis Scrotum: scrotum normal, testes descended bilaterally and no inguinal hernias Testes: no testicular mass Skin Rashes: no rashes Neuro General: patient oriented x3, moves all extremities, no focal motor deficits and deep tendon reflexes 2+ bilaterally Romberg Test: Negative Extrem Other: varicose veins to LLE, right calf dressing with spot of bloody drainage, compression stocking in place Psych Appearance: grossly normal Mental Status: mental status grossly normal Speech and movement: Normal speech and movement present Affect: normal affect Attitude: cooperative Thought process: Normal thought process present Thought content: Normal thought content present Insight: Good insight present (Psych) Judgement: Good judgement present (Psych) Office Procedures Cerumen Removal From which ear canal was the cerumen removed: left Removal: irrigation Notes: patient tolerated procedure well 60115-Dic Irrigation/Lavage Results AMB Hemoglobin A1c AMB Hemoglobin A1c 5.5 % Last Edit by HEMANT Zavala on 05/30/23 08:18 Immunizations pneumoc 20-juani conj-dip cr(PF) 0.5 mL IM syringe Performing Provider: GIRISH Voss Performing Location: [facility] Administered by: Anabella Blas CMA on 05/30/23 08:42 Dose Route Admin Location Dispensed Lot Number Expiration Date [place] A[place] 0.5 mL IM Left Deltoid 0.5 mL [id number] 06/07/24 5080-1724-22 [employer] ([employer] VIS Given Date VIS Provided VIS Publication Date 05/30/23 Single Vaccine 21 Eligibility Eligibility Date Funding Source Not [facility] Eligible 05/30/23 Private Results Reviewed Results Reviewed: Laboratory Last Values Hgb A1c (Clinic) 5.5 % (4.0-6.0) 05/30/23 08:17 Assessment and Plan Assessment & Plan (1) Physical exam: Code(s): Z00.00 - Encounter for general adult medical examination without abnormal findings Plan: Labs ordered (2) Diabetes: Onset Date: ~2021 Comment: (DM2 - dx 04/2022) Code(s): E11.9 - Type 2 diabetes mellitus without complications Plan: Labs ordered Plan The patient agreed to the use of a medical dosimetrist for this encounter. Scribed for GIRISH Alejandro by Josselin Tavera medical dosimetrist, on 05/30/2023 at 08:15 EST Orders: Orders UA CC w/rflx Micro + Cult Today Z00.00 - Encounter for general adult medical examination without abnormal findings AMB Hemoglobin A1c Today Z13.9 - Encounter for screening, unspecified Pneumococcal 20 Immunization Today Z23 - Encounter for immunization Complete Blood Count Auto Diff Today Z00.00 - Encounter for general adult medical examination without abnormal findings Comprehensive [place]. Panel Fast Today Z00.00 - Encounter for general adult medical examination without abnormal findings TSH reflex Free T4 Today Z00.00 - Encounter for general adult medical examination without abnormal findings Lipid Panel Today Z00.00 - Encounter for general adult medical examination without abnormal findings Microalbumin, Random (w Creat) Today E11.9 - Type 2 diabetes mellitus without complications Medications: New amoxicillin-pot clavulanate 875-125 mg 1 tab PO BID 20 tabs 0RF 10 days Changed From lisinopril-hydrochlorothiazide 20-12.5 mg 1 tab PO DAILY 90 tabs 1RF To lisinopril-hydrochlorothiazide 20-12.5 mg 0.5 tabs PO DAILY From meclizine 25 mg PO BID PRN Vertigo To meclizine 25 mg PO BID 20 days PRN 40 tabs 0RF Vertigo Refilled meclizine 25 mg PO BID PRN 40 tabs 0RF Vertigo 20 days Coding Level of Care Code Est Pt Prev Care >65y(61304) Diagnoses Physical exam Z00.00 Diabetes E11.9 CPT Codes Office Procedure - CPT: 29963-Yli Irrigation/Lavage ([id number])
[2023-05-30 08:00] VITALS: BP 130/90; PULSE 66; O2SAT 97; BMI 28.9
== END 2023-05-30 09:03 | disposition home or self-care (01) ==
PROVIDERS: PCP Nurse Practitioner Family; Visit Provider Nurse Practitioner Family
DX: Z00.00 Encounter for general adult medical examination without abnormal findings (principal); E11.9 Type 2 diabetes mellitus without complications; Z23 Encounter for immunization; H61.22 Impacted cerumen, left ear
CPT/HCPCS: 69209; 83036; 90471; 90677; 99397

== ENCOUNTER 2023-06-09 08:55 | Outpatient (AMB) | payer MEDICARE, OTHER, SELFPAY ==
[2023-06-09 08:56] VITALS: BMI 28.9
--- NOTE | 2023-06-09 08:56 | MHC.OFFVIS ---
Intake Vital Signs 06/09/23 08:56 Height 5 ft 9 in Weight 196 lb BMI 28.9 Intake Visit Reasons: 2 week follow up wound check Intake Note: 2 week follow up Right calf mass excision 05/13/2023. Pt states he is doing better but still not healed, using alginate and bandage. Painful to touch and when walking a lot. changes bandage daily. Pt states he is on Abx for a double ear infection. Accompanied by: Self / Same As Patient Allergies sulfamethoxazole [From BACTRIM] Allergy (Intermediate, Verified 06/09/23 09:00) HIVES trimethoprim [From BACTRIM] Allergy (Intermediate, Verified 06/09/23 09:00) HIVES HPI 2 week follow up wound check HPI Details Very pleasant 72-year-old gentleman presents for follow-up regarding right lower extremity microphlebectomy. Postprocedure he had developed a right posterior calf seroma. It was subsequently drained and he was given doxycycline. He appears to be doing relatively well with that. He reports that the pain discomfort have significantly improved. His only concern currently is earaches which he is currently on amoxicillin 4. No other issues at the current time. [facility] Medical History History of subdural hematoma (~2017) Diabetes (~2021) History of MRSA infection (~2014) Hx of vertigo Sleep apnea GERD (gastroesophageal reflux disease) Hypertension Hyperlipidemia Surgical History S/P scrotal varicocelectomy History of brain surgery History of endoscopy History of vasectomy History of varicose vein stripping History of appendectomy History of colonoscopy History of incision and drainage Family History Father Diabetes Hypertension Mother No problems noted. Social History Housing: House Are you a primary primary care md to a significant other at home: No Do you presently have visiting nurse or other home services: No Alcohol intake: current Alcohol intake frequency: a few times a week Patient Tobacco Use Status: Former Tobacco user Quit Date: 1989 Tobacco use type: Cigarette Years Smoked: 5 e-Cigarette/Vaping Use: Never Used Second Hand Smoke Exposure: No Advance Directives Date on File: 02/02/21 Current occupational status: retired Cognitive needs: No Hearing needs: No Vision needs: No Review of Systems Const All systems reviewed & are unremarkable except as noted in HPI and below Reports no additional complaints ENT Reports Normal hearing present Card Denies chest pain, Denies chest pain at rest, Denies chest pain with activity and Denies pedal edema Resp Denies cough GI Denies abdominal pain Musc Denies abnormal gait, Denies muscle cramps and Denies radiating pain into limb Skin/Breast Denies skin ulcer and Denies wounds Neuro Reports Normal hearing present and Denies abnormal gait Psych Reports no additional complaints Physical Exam Vital Signs: BMI result Body Mass Index 28.9 Const General: cooperative, healthy appearing and comfortable Orientation/consciousness: oriented to person, oriented to place and oriented to time HEENT Head: Yes normal to inspection Neck Neck: Yes normal visual inspection Carotids: no bruits Chest Chest palpation & inspection: normal inspection of the chest Resp Effort & Inspection: normal respiratory effort and able to speak in complete sentences Auscultation: clear to auscultation bilaterally, no crackles, no rales, no rhonchi and no wheezes Cardio Rate: regular rate Rhythm: regular rhythm Heart sounds: S1 normal heart sound present and S2 normal heart sound present Bruits: no carotid bruits Peripheral pulses: Peripheral pulses 2+ throughout GI Inspection: Yes normal to inspection Skin Other: Right calf has gone on to heal Wounds: no wounds Hair: normal Neuro General: oriented to person, oriented to place and oriented to time Cranial nerves: Yes CN's II-XII intact bilaterally and Yes Normal hearing present Cognition (Neuro): normal cognition Motor exam (neuro): 5/5 motor strength present throughout Extrem Other: venous exam: Left leg +1 edema with superficial varicosities General: No clubbing, No cyanosis and Yes edema Psych Appearance: grossly normal Mental Status: mental status grossly normal Speech and movement: Normal speech and movement present Assessment & Plan Assessment & Plan (1) Varicose veins of right lower extremity with inflammation: Comment: June 2019- right GSV Radiofrequency ablation and microphlebectomy x2 03/28/2023- right leg microphlebectomy Code(s): I83.11 - Varicose veins of right lower extremity with inflammation Plan: Right leg appears to be doing extremely well. We did discuss continued conservative measures including compression elevation and exercise. He will follow up with us in approximately 6 months time for leg check. At that time we may consider left leg microphlebectomy. Thank you for allowing us to assist in his care. If there are any questions or concerns please do not hesitate to contact us. Coding Level of Care Code Est Pt Level 3 (79317) Diagnoses Varicose veins of right lower extremity with inflammation I83.11
== END 2023-06-09 09:36 | disposition home or self-care (01) ==
PROVIDERS: PCP Nurse Practitioner Family; Visit Provider Surgery Vascular Surgery
DX: I83.11 Varicose veins of right lower extremity with inflammation (principal)
CPT/HCPCS: 99213

== ENCOUNTER → 2023-06-09 08:55 | Outpatient (BNVA) | payer MEDICARE, OTHER, SELFPAY | PROVIDERS: PCP Nurse Practitioner Family; Visit Provider Surgery Vascular Surgery | DX: L76.34 Postprocedural seroma of skin and subcutaneous tissue following other procedure (principal); I83.11 Varicose veins of right lower extremity with inflammation | CPT/HCPCS: 99212 ==

== ENCOUNTER 2023-07-07 07:34 | Outpatient (REF) | payer MEDICARE, OTHER, SELFPAY ==
[2023-07-07 11:41] LABS: Appearance Urine Clear; Color Urine Yellow; Glucose Urine UA Negative (Negative); Leukocyte Esterase Urine Small (1+) (Negative); Nitrite Urine Negative (Negative); PH 5.5 (5.0-9.0); UMIC TRIGGER UACC YES; Urine Blood Negative (Negative); Urine Ketones Negative (Negative); Urine Protein Trace mg/dL (Neg-Trace)
[2023-07-07 11:47] LABS: Bacteria Urine None Seen (None Seen); Hyaline Casts Urine 0-2 /LPF (0-2); RBC Urine 0-2 /HPF (0-2); Squamous Epithelial Cell Urine 0-2 /HPF (0-2); UACC Culture Trigger YES
[2023-07-07 11:52] LABS: MANUAL DIFF FLAG NO
[2023-07-07 12:27] LABS: Basophils Absolute Auto 0.1 X10*3/uL (0.0-0.2); Basophils Percent Auto 0.7 % (0-2); Eosinophils Absolute Auto 0.1 X10*3/uL (0.0-0.4); Hematocrit 54.5 % (42.0-52.0); Hemoglobin 18.3 g/dl (14.0-18.0); Imm Gran Abs Auto 0.02 X10*3/uL (0.00-0.03); Imm Gran Pct Auto 0.3 % (0.0-0.4); Lymphocytes Absolute Auto 1.3 X10*3/uL (1.2-4.9); Lymphocytes Percent Auto 18.3 % (20-40); Mean Corpuscular HGB Conc 33.6 g/dl (31.0-36.0); Mean Corpuscular Hemoglobin 30.4 pg (27.0-33.0); Mean Corpuscular Volume 90.5 fL (80.0-98.0); Mean Platelet Volume 10.2 fL (9.4-12.4); Monocytes Absolute Auto 0.5 X10*3/uL (0.1-1.2); Monocytes Percent Auto 7.1 % (2-11); Neutrophils Absolute Auto 5.1 x10*3/uL (2.0-8.3); Neutrophils Percent Auto 71.6 % (45-73); Platelet Count 190 X10*3/uL (160-400); Red Blood Count 6.02 X10*6/uL (4.60-5.80); Red Cell Distribution Width 12.4 % (11.0-16.0); White Blood Count 7.1 X10*3/uL (4.8-10.8)
[2023-07-07 12:49] LABS: Alanine Aminotransferase 21 U/L (0-40); Albumin Level 4.3 g/dL (3.5-5.0); Alkaline Phosphatase 67 U/L (39-117); Anion Gap 12 (12-20); Aspartate Amino Transferase 19 U/L (5-37); Bilirubin Total 0.8 mg/dL (0.0-1.0); Blood Urea Nitrogen 26 mg/dL (9-16); Calcium 9.7 mg/dL (8.4-10.2); Carbon Dioxide 29 mmol/L (22-29); Chloride 105 mmol/L (96-108); Cholesterol 121 mg/dL (<200); Estimated Glomerular Filt Rate 55; Glucose Fasting 134 mg/dL (60-99); HDL Cholesterol 34 mg/dL (>40); LDL Cholesterol Calculated 71 mg/dL (<100); Potassium 4.2 mmol/L (3.3-5.1); Sodium 142 mmol/L (135-145); TSH reflex Free T4 1.31 uIU/mL (0.32-4.0); Triglycerides 80 mg/dL (<150)
[2023-07-07 12:53] LABS: Creatinine Urine 187.91 mg/dL; Microalbum/Creatinine Ratio Ur 30.3 ug/mg cr (<30)
== END 2023-07-07 07:35 | disposition home or self-care (01) ==
LOC: HO.HMGCLDS 07:34
PROVIDERS: PCP Nurse Practitioner Family; Visit Provider Nurse Practitioner Family
DX: Z00.00 Encounter for general adult medical examination without abnormal findings (principal); E11.9 Type 2 diabetes mellitus without complications; R82.90 Unspecified abnormal findings in urine
CPT/HCPCS: 36415; 80053; 80061; 81001; 82043; 82570; 84443; 85025; 87086

== ENCOUNTER → 2023-07-08 10:34 | Outpatient (BNVA) | payer MEDICARE, OTHER, SELFPAY | PROVIDERS: PCP Nurse Practitioner Family; Visit Provider Internal Medicine Hypertension Specialist | DX: I12.9 Hypertensive chronic kidney disease with stage 1 through stage 4 chronic kidney disease, or unspecified chronic kidney disease (principal); N18.9 Chronic kidney disease, unspecified; R80.9 Proteinuria, unspecified | CPT/HCPCS: 99202 ==

== ENCOUNTER → 2023-07-08 11:07 | Outpatient (AMB) | payer MEDICARE, OTHER, SELFPAY ==
--- NOTE | 2023-07-08 10:46 | HO.NEPHOV ---
HPI HPI Comments History of Present Illness Details 72-year-old man with a history of longstanding hypertension. He was on lisinopril 20/12.5 mg 1 a day. He was feeling lightheaded. This has been decreased to half a tablet a day. He has been watching his blood pressure at home. Usually blood pressure control. He states sometimes blood pressure goes of while in the doctor's office. Nine he suspects he might have white coat hypertension. Serum creatinine is 1.29. Last year creatinine was 1.4. There has been fluctuations in creatinine 1.4-1.2. He has been referred for evaluation renal insufficiency. History of subdural hematoma few years ago. This was secondary to trauma. [facility] History History of subdural hematoma (~2017) Diabetes (~2021) History of MRSA infection (~2014) Hx of vertigo Sleep apnea GERD (gastroesophageal reflux disease) Hypertension Hyperlipidemia Surgical History S/P scrotal varicocelectomy History of brain surgery History of endoscopy History of vasectomy History of varicose vein stripping History of appendectomy History of colonoscopy History of incision and drainage Family History Father Diabetes Hypertension Mother No problems noted. Social History Housing: House Are you a primary personal care aid to a significant other at home: No Do you presently have visiting nurse or other home services: No Alcohol intake: current Alcohol intake frequency: a few times a week Patient Tobacco Use Status: Former Tobacco user Quit Date: 1989 Tobacco use type: Cigarette Years Smoked: 5 e-Cigarette/Vaping Use: Never Used Second Hand Smoke Exposure: No Advance Directives Date on File: 02/02/21 Current occupational status: retired Cognitive needs: No Hearing needs: No Vision needs: No Vital Signs 07/08/23 10:48 Height 5 ft 9 in Weight 199 lb 4 oz BMI 29.4 BP 134/82 Blood Pressure Location Lt brachial Position Sitting Pulse 69 Pulse Source Pulse Oximeter Pulse Oximetry (%) 96 Oxygen Delivery Method Room Air Physical Exam Vital Signs: Last Vital Signs Pulse 69 07/08/23 10:48 BP 134/82 07/08/23 10:48 Pulse Ox 96 07/08/23 10:48 Oxygen Delivery Method Room Air 07/08/23 10:48 BMI result Body Mass Index 29.4 Const General: comfortable; No acute distress Orientation/consciousness: patient oriented x3 Eyes General: appearance normal, both eyes and all related structures Visual Tinoco: normal visual tinoco by confrontation Neck Neck: Yes supple and Yes no JVD Resp Effort & Inspection: normal respiratory effort and respiratory effort not decreased Auscultation: rhonchi Cardio Palpation: no palpable S3 and no palpable S4 Heart sounds: no rubs GI Inspection: Yes normal to inspection Palpation (GI): Soft to palpation Percussion: Yes normal to percussion Auscultation: normal bowel sounds General: Yes no CVA tenderness Back/Spine/Pelvis Back: no CVA tenderness Skin General skin exam: no petechiae and no purpura Neuro General: patient oriented x3 and no focal motor deficits Extrem General: No clubbing and No edema Assessment & Plan Assessment & Plan (1) CKD (chronic kidney disease): Code(s): N18.9 - Chronic kidney disease, unspecified (2) Microalbuminuria: Code(s): R80.9 - Proteinuria, unspecified (3) HTN (hypertension): Code(s): I10 - Essential (primary) hypertension Plan [age] year old man with CKD in setting hypertension. I suspected a component of hypoperfusion leading to worsening of renal function. After lower lisinopril renal function should improve. I will discontinue hydrochlorothiazide Keep him on lisinopril 10 mg a day. Increase him to monitor his blood pressure at home. Will recheck serum creatinine the next 2 weeks. Based on home blood pressure readings I will consider 24 hour ambulatory blood pressure monitoring. The meantime increase him to stand low-sodium diet increase fluid intake. His renal function does not improve I will proceed with renal ultrasonogram. He has minimal proteinuria due to underlying hypertensive kidney disease. No significant hematuria and interstitial nephritis seems unlikely at this point. I shall follow with you Orders: Orders Blood Urea Nitrogen 2 Weeks N18.9 - Chronic kidney disease, unspecified Creatinine 2 Weeks N18.9 - Chronic kidney disease, unspecified Calcium 2 Weeks N18.9 - Chronic kidney disease, unspecified Electrolytes 2 Weeks N18.9 - Chronic kidney disease, unspecified Medications: New lisinopril 10 mg PO DAILY 30 tabs 3RF Coding Level of Care Code New Pt Level 4 (13831) Diagnoses CKD (chronic kidney disease) N18.9 Microalbuminuria R80.9 HTN (hypertension) I10 Results Reviewed Nephrology Results: Hgb 18.3 g/dl (14.0-18.0) H 07/07/23 WBC 7.1 X10*3/uL (4.8-10.8) 07/07/23 Plt Count 190 X10*3/uL (160-400) 07/07/23 Sodium 142 mmol/L (135-145) 07/07/23 Potassium 4.2 mmol/L (3.3-5.1) 07/07/23 Chloride 105 mmol/L (96-108) 07/07/23 Carbon Dioxide 29 mmol/L (22-29) 07/07/23 BUN 26 mg/dL (9-16) H 07/07/23 Creatinine 1.29 mg/dL (0.5-1.4) 07/07/23 Calcium 9.7 mg/dL (8.4-10.2) 07/07/23 Urine Protein Trace mg/dL (Neg-Trace) 07/07/23 Urine Creatinine 187.91 mg/dL 07/07/23
[2023-07-08 10:48] VITALS: BP 134/82; PULSE 69; O2SAT 96; BMI 29.4
== END | disposition home or self-care (01) ==
LOC: HO.HKA 10:35
PROVIDERS: PCP Nurse Practitioner Family; Visit Provider Internal Medicine Hypertension Specialist
DX: I12.9 Hypertensive chronic kidney disease with stage 1 through stage 4 chronic kidney disease, or unspecified chronic kidney disease (principal); N18.9 Chronic kidney disease, unspecified; R80.9 Proteinuria, unspecified
CPT/HCPCS: 99204

== ENCOUNTER 2023-07-25 07:32 | Outpatient (REF) | payer MEDICARE, OTHER, SELFPAY ==
[2023-07-25 12:08] LABS: Anion Gap 12 (12-20); Blood Urea Nitrogen 22 mg/dL (9-16); Calcium 9.1 mg/dL (8.4-10.2); Carbon Dioxide 24 mmol/L (22-29); Chloride 110 mmol/L (96-108); Estimated Glomerular Filt Rate 53; Potassium 4.4 mmol/L (3.3-5.1); Sodium 142 mmol/L (135-145)
== END 2023-07-25 07:33 | disposition home or self-care (01) ==
LOC: HO.HMGCLDS 07:32
PROVIDERS: PCP Nurse Practitioner Family; Visit Provider Internal Medicine Hypertension Specialist
DX: N18.9 Chronic kidney disease, unspecified (principal)
CPT/HCPCS: 36415; 80051; 82310; 82565; 84520

== ENCOUNTER 2023-07-28 10:43 | Outpatient (AMB) | payer MEDICARE, OTHER, SELFPAY ==
[2023-07-28 10:51] VITALS: BP 140/82; PULSE 77; O2SAT 97; BMI 28.8
--- NOTE | 2023-07-28 10:51 | HO.NEPHOV ---
HPI HPI Comments History of Present Illness Details 72-year-old man with a history of longstanding hypertension. He was on lisinopril 20/12.5 mg 1 a day. He was feeling lightheaded. This has been decreased to half a tablet a day. He has been watching his blood pressure at home. Usually blood pressure control. He states sometimes blood pressure goes of while in the doctor's office. Nine he suspects he might have white coat hypertension. Serum creatinine is 1.29. Last year creatinine was 1.4. There has been fluctuations in creatinine 1.4-1.2. He has been referred for evaluation renal insufficiency. History of subdural hematoma few years ago. This was secondary to trauma. 07/28/23: HCTZ was stopped. NO improvement in creatinine Baseline is 1.33 Home SBP is 147 and 148 Has some difficulty urinating Waiting to see Urology [facility] Medical History History of subdural hematoma (~2017) Diabetes (~2021) History of MRSA infection (~2014) Hx of vertigo Sleep apnea GERD (gastroesophageal reflux disease) Hypertension Hyperlipidemia Surgical History S/P scrotal varicocelectomy History of brain surgery History of endoscopy History of vasectomy History of varicose vein stripping History of appendectomy History of colonoscopy History of incision and drainage Family History Father Diabetes Hypertension Mother No problems noted. Social History Housing: House Are you a primary patient care representative to a significant other at home: No Do you presently have visiting nurse or other home services: No Alcohol intake: current Alcohol intake frequency: a few times a week Patient Tobacco Use Status: Former Tobacco user Quit Date: 1989 Tobacco use type: Cigarette Years Smoked: 5 e-Cigarette/Vaping Use: Never Used Second Hand Smoke Exposure: No Advance Directives Date on File: 02/02/21 Current occupational status: retired Cognitive needs: No Hearing needs: No Vision needs: No Vital Signs 07/28/23 10:51 Height 5 ft 9 in Weight 195 lb 4 oz BMI 28.8 BP 140/82 H Blood Pressure Location Lt brachial Position Sitting Pulse 77 Pulse Source Pulse Oximeter Pulse Oximetry (%) 97 Oxygen Delivery Method Room Air Physical Exam Vital Signs: BMI result Body Mass Index 28.8 Const General: comfortable; No acute distress Orientation/consciousness: patient oriented x3 Eyes General: appearance normal, both eyes and all related structures Visual Tinoco: normal visual tinoco by confrontation Neck Neck: Yes supple and Yes no JVD Resp Effort & Inspection: normal respiratory effort and respiratory effort not decreased Auscultation: rhonchi Cardio Palpation: no palpable S3 and no palpable S4 Heart sounds: no rubs GI Inspection: Yes normal to inspection Palpation (GI): Soft to palpation Percussion: Yes normal to percussion Auscultation: normal bowel sounds General: Yes no CVA tenderness Back/Spine/Pelvis Back: no CVA tenderness Skin General skin exam: no petechiae and no purpura Neuro General: patient oriented x3 and no focal motor deficits Extrem General: No clubbing and No edema Assessment & Plan Assessment & Plan (1) CKD (chronic kidney disease): Code(s): N18.9 - Chronic kidney disease, unspecified (2) Microalbuminuria: Code(s): R80.9 - Proteinuria, unspecified (3) HTN (hypertension): Code(s): I10 - Essential (primary) hypertension (4) Polycythemia: Code(s): D75.1 - Secondary polycythemia (5) Restrictive lung disease: Comment: PFTs May 2023 Forced vital capacity 66%. FEV1 is 78%. FEV1/FVC ratio is 86. ZAT61-46 125% and MVV 78%. Post bronchodilator therapy, there is slight increase in GOS30-96, but no change in FVC or FEV1. Total lung capacity 63%, residual volume 72%. Diffusion capacity 117%. CONCLUSION: 1. Moderately severe restrictive pulmonary disorder. 2. No obstructive airway disorder. Code(s): J98.4 - Other disorders of lung Plan [age] old man with CKD in setting hypertension. Keep Lisinopril 10 mg QD I will resume hydrochlorothiazide 12.5 mg to optimize BP monitor his blood pressure at home. No need for 24 hour ambulatory blood pressure monitoring yet The meantime stay on low-sodium diet / increase fluid intake. His renal function does not improve I will proceed with renal ultrasonogram. He has minimal proteinuria due to underlying hypertensive kidney disease. No significant hematuria and interstitial nephritis seems unlikely at this point. Polycythemia - probably due to Restrictive lung diz. Needs follow up Orders: Orders Electrolytes 3 Months N18.9 - Chronic kidney disease, unspecified Blood Urea Nitrogen 3 Months N18.9 - Chronic kidney disease, unspecified Creatinine 3 Months N18.9 - Chronic kidney disease, unspecified Calcium 3 Months N18.9 - Chronic kidney disease, unspecified US renal BI Today N18.9 - Chronic kidney disease, unspecified Coding Level of Care Code Est Pt Level 4 (38397) Diagnoses CKD (chronic kidney disease) N18.9 Microalbuminuria R80.9 HTN (hypertension) I10 Polycythemia D75.1 Restrictive lung disease J98.4 Results Reviewed Nephrology Results: Hgb 18.3 g/dl (14.0-18.0) H 07/07/23 WBC 7.1 X10*3/uL (4.8-10.8) 07/07/23 Plt Count 190 X10*3/uL (160-400) 07/07/23 Sodium 142 mmol/L (135-145) 07/25/23 Potassium 4.4 mmol/L (3.3-5.1) 07/25/23 Chloride 110 mmol/L (96-108) H 07/25/23 Carbon Dioxide 24 mmol/L (22-29) 07/25/23 BUN 22 mg/dL (9-16) H 07/25/23 Creatinine 1.33 mg/dL (0.5-1.4) 07/25/23 Calcium 9.1 mg/dL (8.4-10.2) 07/25/23 Urine Protein Trace mg/dL (Neg-Trace) 07/07/23 Urine Creatinine 187.91 mg/dL 07/07/23
== END 2023-07-28 11:10 | disposition home or self-care (01) ==
PROVIDERS: PCP Nurse Practitioner Family; Visit Provider Internal Medicine Hypertension Specialist
DX: I12.9 Hypertensive chronic kidney disease with stage 1 through stage 4 chronic kidney disease, or unspecified chronic kidney disease (principal); N18.9 Chronic kidney disease, unspecified; R80.9 Proteinuria, unspecified; D75.1 Secondary polycythemia; J98.4 Other disorders of lung
CPT/HCPCS: 99214

== ENCOUNTER → 2023-07-28 10:43 | Outpatient (BNVA) | payer MEDICARE, OTHER, SELFPAY | PROVIDERS: PCP Nurse Practitioner Family; Visit Provider Internal Medicine Hypertension Specialist | DX: I12.9 Hypertensive chronic kidney disease with stage 1 through stage 4 chronic kidney disease, or unspecified chronic kidney disease (principal); N18.9 Chronic kidney disease, unspecified; R80.9 Proteinuria, unspecified; D75.1 Secondary polycythemia; J98.4 Other disorders of lung | CPT/HCPCS: 99212 ==

== ENCOUNTER 2023-08-03 10:51 | Outpatient (AMB) | payer MEDICARE, OTHER, SELFPAY ==
--- NOTE | 2023-08-03 11:34 | MHC.OFFVIS ---
Intake Intake Visit Reasons: Nocturia (seen anatoliy in the past) Intake Note: Former Patient of DR Jha presents today to established treatment for Nocturia: Meds- None Allergies to Antibiotic- No Known Allergies Blood Thinner- None Post Void Residual: 12 mL Charger Tester Required: No Accompanied by: Self / Same As Patient Allergies sulfamethoxazole [From BACTRIM] Allergy (Intermediate, Verified 08/16/23 11:31) HIVES trimethoprim [From BACTRIM] Allergy (Intermediate, Verified 08/16/23 11:31) HIVES Medication List - Last Reviewed 08/03/23 by PIPE Ahn alfuzosin ER 10 mg PO DAILY atorvastatin 20 mg PO BEDTIME 90 days blood sugar diagnostic (FreeStyle Lite Strips) As directed cetirizine (All Day Allergy (cetirizine)) 10 mg PO DAILY PRN lisinopril 10 mg PO DAILY meclizine 25 mg PO BID PRN 20 days omeprazole magnesium (Prilosec OTC) 20 mg PO DAILY HPI HPI Comments History of Present Illness Details Harjit is a 72 year old male who is here for evaluation for nocturia. Past Medical history -- History of subdural hematoma (~2017) Diabetes (~2021) history of MRSA infection (~2014) Hx of vertigo Sleep apnea GERD (gastroesophageal reflux disease) Hypertension Hyperlipidemia The patient complains of daytime urinary frequency every 1-2 hours, states feels like he would leak if he doesn't make it to the bathroom in time. nocturia x2, denies hematuria, denies dysuria, feeling of incomplete bladder emptying. I have reviewed chart, PSA 1.52- 08/2022. I have discussed avoiding dietary bladder irritants, including to cut back on caffeine usage Plan-- Alfuzosin 10 mg daily pt states he has renal US later today ordered by Medical Lab Assistant. [facility] Medical History History of subdural hematoma (~2017) Diabetes (~2021) History of MRSA infection (~2014) Hx of vertigo Sleep apnea GERD (gastroesophageal reflux disease) Hypertension Hyperlipidemia Surgical History S/P scrotal varicocelectomy History of brain surgery History of endoscopy History of vasectomy History of varicose vein stripping History of appendectomy History of colonoscopy History of incision and drainage Family History Father Diabetes Hypertension Mother No problems noted. Social History (Updated 08/16/23 @ 11:31 by Jaycob Chang) Housing: House Are you a primary career resource technician to a significant other at home: No Do you presently have visiting nurse or other home services: No Alcohol intake: current Alcohol intake frequency: a few times a week Patient Tobacco Use Status: Former Tobacco user Quit Date: 1989 Tobacco use type: Cigarette Years Smoked: 5 e-Cigarette/Vaping Use: Never Used Second Hand Smoke Exposure: No Use of substances other than those prescribed or required for medical reasons: No Do you feel safe in your current relationship?: Yes Advance Directives Date on File: 02/02/21 Do you have thoughts of harming others: None service: Yes Current occupational status: retired Cognitive needs: No Hearing needs: No Vision needs: No Review of Systems Const All systems reviewed & are unremarkable except as noted in HPI and below Reports no additional complaints Eyes Reports no additional complaints ENT Reports no additional complaints Card Denies dyspnea Resp Denies cough and Denies dyspnea GI Reports no additional complaints Musc Reports no additional complaints Skin/Breast Denies rash and Denies unusual bruising Neuro Reports no additional complaints Psych Reports no additional complaints Endo Reports no additional complaints Bandar/Lymph Reports no additional complaints Aller/Immun Reports no additional complaints Physical Exam Const General: healthy appearing, no acute distress and well developed Orientation/consciousness: patient oriented x3 HEENT Head: Yes normocephalic and Yes atraumatic Eyes Conjunctivae: conjunctivae normal Neck Neck: Yes normal visual inspection Chest Chest palpation & inspection: normal inspection of the chest Resp Effort & Inspection: normal respiratory effort Cardio Rate: regular rate GI Inspection: Yes normal to inspection Palpation (GI): Soft to palpation Other: Prostate Exam: smooth irregular, no hard nodules Skin General skin exam: no rashes or lesions noted Neuro General: patient oriented x3 Extrem General: No pedal edema Psych Appearance: grossly normal Affect: normal affect Office Procedures Post Void Residual Post Residual Void Post Void Residual (PVR): 12 32590-Ztbh Void Residual by ultrasound Results AMB Urinalysis, Automated UA Leukoctes 0 Joshua/uL Last Edit by PIPE Ahn on 08/03/23 11:56 UA Nitrite Negative Last Edit by Lloyd Tavarez A on 08/03/23 11:56 UA Urobilinogen 0.2 mg/dL Last Edit by Lloyd Tavarez A on 08/03/23 11:56 UA Protein 15 mg/dL Last Edit by Lloyd Tavarez A on 08/03/23 11:56 UA pH 6.0 Last Edit by Lloyd Tavarez A on 08/03/23 11:56 UA Blood 0 Jared/uL Last Edit by Lloyd Tavarez A on 08/03/23 11:56 UA Specific [place] 1.020 Last Edit by Lloyd Tavarez A on 08/03/23 11:56 UA Ketone Negative Last Edit by Lloyd Tavarez A on 08/03/23 11:56 UA Bilirubin 0 mg/dL Last Edit by Lloyd Tavarez [facility] on 08/03/23 11:56 UA Glucose 0 mg/dL Last Edit by Lloyd Tavarez [facility] on 08/03/23 11:56 Results Reviewed Results Reviewed: Laboratory Last Values Urine pH (Auto) 6.0 08/03/23 11:49 Specific [place] (Auto) 1.020 08/03/23 11:49 Urine Protein (Auto) 15 mg/dL 08/03/23 11:49 Glucose (UA)(Auto) 0 mg/dL 08/03/23 11:49 Urine Ketones (Auto) Negative 08/03/23 11:49 Urine Blood (Auto) 0 Jared/uL 08/03/23 11:49 Urine Nitrite (Auto) Negative 08/03/23 11:49 Urine Bilirubin (Auto) 0 mg/dL 08/03/23 11:49 Urine Urobilinogen (Auto) 0.2 mg/dL 08/03/23 11:49 Leukocyte Esterase (Auto) 0 Joshua/uL 08/03/23 11:49 Assessment & Plan Assessment & Plan (1) BPH loc w urin obs/LUTS: Code(s): N40.1 - Benign prostatic hyperplasia with lower urinary tract symptoms (2) Urinary frequency: Code(s): R35.0 - Frequency of micturition (3) Diabetes: Onset Date: ~2021 Comment: (DM2 - dx 04/2022) Code(s): E11.9 - Type 2 diabetes mellitus without complications (4) CKD (chronic kidney disease): Code(s): N18.9 - Chronic kidney disease, unspecified Plan Alfuzosin 10 mg daily pt states he has renal US later today ordered by Medical Lab Assistant. Orders: Orders AMB Urinalysis Automated 08/03/23 Z13.9 - Encounter for screening, unspecified AMB Post Void Residual by ultrasound 08/03/23 N39.8 - Other specified disorders of urinary system Medications: New alfuzosin ER administer after the same meal each day 10 mg PO DAILY 90 tabs 1RF Patient Instructions: The patient had an opportunity to ask questions regarding treatment plan. All questions were answered. Imaging, Laboratory studies and physical exam results were discussed and reviewed in detail. No major barriers to understanding were identified. The patient expressed understanding and agreement with the above treatment plan. The patient is aware they should contact our office by phone for worsening of their current condition or the appearance of new symptoms. Compliance is encouraged with any medications and followup testing that is ordered. It is a privilege to be allowed the opportunity to participate in the urologic care of your patient. If you have any questions or concerns regarding treatment for the above conditions please do not hesitate to contact me. The office telephone contact is [phone]. This note is constructed in part using voice recognition software. While every effort has been made to ensure accuracy washing machine mechanic errors may have been included. Yours sincerely, Chaparro Maharaj MD Coding Level of Care Code New Pt Level 4 (99818) Diagnoses BPH loc w urin obs/LUTS N40.1 Urinary frequency R35.0 Diabetes E11.9 CKD (chronic kidney disease) N18.9 CPT Codes Post Residual Void - PVR CPT Code: 58167-Wlbv Void Residual by ultrasound ([id number])
== END 2023-08-03 15:31 | disposition home or self-care (01) ==
PROVIDERS: PCP Nurse Practitioner Family; Visit Provider Urology
DX: N40.1 Benign prostatic hyperplasia with lower urinary tract symptoms (principal); R35.0 Frequency of micturition; E11.9 Type 2 diabetes mellitus without complications; N18.9 Chronic kidney disease, unspecified
CPT/HCPCS: 99204

== ENCOUNTER 2023-08-03 14:23 | Outpatient (REF) | payer MEDICARE, OTHER, SELFPAY ==
--- NOTE | ~2023-08-03 | US_ITS ---
EXAMINATION: US RETROPERITONEAL LIMITED (RENAL ONLY) CLINICAL INFORMATION: Chronic kidney disease, unspecified. No multicystic kidneys. COMPARISON: CT abdomen and pelvis 07/12/2015. TECHNIQUE: Real-time imaging of the kidneys. Limited visualization due to bowel gas. FINDINGS: RIGHT KIDNEY: 12.4 x 6.3 x 5.8 cm (SAG x AP x TRV). No hydronephrosis. No renal calculi. Limited visualization. Innumerable renal cysts, largest 9.8 x 8.7 x 13.4 cm lower pole appears mildly complex with low-level internal echoes. 2.6 x 2.1 x 2.2 cm mildly complex midpole cyst. 6.8 x 7.1 x 7.5 cm upper pole cyst appears simple. Innumerable additional smaller cysts, some of which are difficult to characterize due to limited visualization. LEFT KIDNEY: 17.5 x 9.0 x 10.8 cm (SAG x AP x TRV). No hydronephrosis. No renal calculi. Limited visualization. Lower pole 6.0 x 4.6 x 4.6 cm cyst appears simple. Upper pole 20.5 x 10.0 x 12.1 cm complex cyst with septation versus 2 adjacent cysts difficult to characterize due to the large size. Midpole 6.3 x 5.4 x 5.0 cm possibly complex cyst. Innumerable additional smaller cysts, some of which are difficult to characterize due to limited visualization. US/US renal BI IMPRESSION: Bilateral enlarged kidneys with innumerable bilateral renal cysts, some of which are difficult to characterize due to limited visualization. Dedicated CT scan employing renal mass protocol with images obtained both prior to and following intravenous contrast recommended.
== END 2023-08-03 14:24 | disposition home or self-care (01) ==
LOC: HO.HMGCX 14:23
PROVIDERS: PCP Nurse Practitioner Family; Visit Provider Internal Medicine Hypertension Specialist
DX: N40.1 Benign prostatic hyperplasia with lower urinary tract symptoms (principal); N13.8 Other obstructive and reflux uropathy; R35.1 Nocturia; E11.9 Type 2 diabetes mellitus without complications; N18.9 Chronic kidney disease, unspecified
CPT/HCPCS: 51798; 76775; 81003; 99202

== ENCOUNTER → 2023-08-16 11:17 | Outpatient (BNV) | payer MEDICARE, OTHER, SELFPAY | PROVIDERS: PCP Nurse Practitioner Family; Visit Provider Internal Medicine Medical Oncology | DX: I24.9 Acute ischemic heart disease, unspecified (principal); D75.1 Secondary polycythemia | CPT/HCPCS: 99204; 99213 ==

== ENCOUNTER 2023-09-07 08:05 | Outpatient (AMB) | payer MEDICARE, OTHER, SELFPAY ==
[2023-09-07 08:15] VITALS: BP 140/76; PULSE 76; TEMP 36.6; O2SAT 97; BMI 29.2
--- NOTE | 2023-09-07 08:15 | AM.OFFWIN_ITS ---
Intake Vital Signs 09/07/23 08:15 Height 5 ft 8 in Weight 192 lb BMI 29.2 BP 140/76 H Blood Pressure Location Lt brachial Position Sitting Pulse 76 Pulse Source Pulse Oximeter Temp 97.9 F Temp Source Oral Pulse Oximetry (%) 97 Intake Visit Reasons: EP sinus infection congestion [id number] Intake Note: pt is here for c.o congestion, sinus infection 3 days Patient Tobacco Use Status: Former Tobacco user Quit Date: 1989 Allergies sulfamethoxazole [From BACTRIM] Allergy (Intermediate, Verified 09/07/23 08:22) HIVES trimethoprim [From BACTRIM] Allergy (Intermediate, Verified 09/07/23 08:22) HIVES Do you need a note to return to daycare/school/sports/work: No HPI HPI Comments History of Present Illness Details He presents with cold x 3 days He said is sick as well He said + facial pressure, ear ringing/pressure He denies ear pain + symptoms last June but was +strep Minimal ST Minimal cough without SOB, CP He denies fever or chills Pt has tried OTC cloricidine for cough Was last seen recently for PCP and he said white coat syndrome No blurred vision/dizziness PFSH Medical History History of subdural hematoma (~2017) Diabetes (~2021) History of MRSA infection (~2014) Hx of vertigo Sleep apnea GERD (gastroesophageal reflux disease) Hypertension Hyperlipidemia Surgical History S/P scrotal varicocelectomy History of brain surgery History of endoscopy History of vasectomy History of varicose vein stripping History of appendectomy History of colonoscopy History of incision and drainage Family History Father Diabetes Hypertension Mother No problems noted. Social History (Updated 08/16/23 @ 11:31 by Jaycob Chang) Housing: House Are you a primary medicare insurance specialist to a significant other at home: No Do you presently have visiting nurse or other home services: No Alcohol intake: current Alcohol intake frequency: a few times a week Patient Tobacco Use Status: Former Tobacco user Quit Date: 1989 Tobacco use type: Cigarette Years Smoked: 5 e-Cigarette/Vaping Use: Never Used Second Hand Smoke Exposure: No Advance Directives Date on File: 02/02/21 service: Yes Current occupational status: retired Cognitive needs: No Hearing needs: No Vision needs: No Physical Exam Vital Signs: Last Vital Signs Temp 97.9 F 09/07/23 08:15 Pulse 76 09/07/23 08:15 BP 140/76 H 09/07/23 08:15 Pulse Ox 97 09/07/23 08:15 BMI result Body Mass Index 29.2 Results AMB Rapid Strep AMB Rapid Strep Negative Last Edit by Johny Trotter CMA on 09/07/23 08 :42 Results Reviewed Results Reviewed: Laboratory Last Values Strep Scn [facility] Negative 09/07/23 08:42 Assessment & Plan Assessment & Plan (1) Upper respiratory infection: Code(s): J06.9 - Acute upper respiratory infection, unspecified Qualifiers: URI type: unspecified viral URI Qualified Code(s): J06.9 - Acute upper respiratory infection, unspecified Plan: Patient seen and evaluated. Strep negative COVID/Flu/rsv pending Nasal sterid and tessalon for symptoms to pharmacy F/U with PCP Patient gave verbal understanding and had no additional questions or concerns at time of discharge All questions answered Orders: Orders AMB Rapid Strep Screen Today Z13.9 - Encounter for screening, unspecified SARS-CoV2/FLU/RSV Today J06.9 - Acute upper respiratory infection, unspecified Medications: New ipratropium bromide administer into each nostril 2 sprays intranasal BID 7 days 30 mL 0RF benzonatate 150 mg PO BID-TID PRN 14 caps 0RF cough Coding Level of Care Code Est Pt Level 3 (53710) Diagnoses Viral upper respiratory tract infection J06.9 URI type: unspecified viral URI
== END 2023-09-07 09:17 | disposition home or self-care (01) ==
PROVIDERS: PCP Nurse Practitioner Family; Visit Provider Physician Assistant
DX: J06.9 Acute upper respiratory infection, unspecified (principal)
CPT/HCPCS: 87880; 99213

== ENCOUNTER 2023-09-07 11:37 | Outpatient (REF) | payer MEDICARE, OTHER, SELFPAY ==
[2023-09-07 13:01] LABS: Influenza A PCR NEGATIVE (Negative); Influenza B PCR NEGATIVE (Negative); Resp Syncy Virus RNA Qual PCR NEGATIVE (Negative); SARS COV2 PCR INHOUSE NEGATIVE (Negative)
== END 2023-09-07 11:38 | disposition home or self-care (01) ==
LOC: HO.LNP 11:37
PROVIDERS: Visit Provider Physician Assistant
DX: J06.9 Acute upper respiratory infection, unspecified (principal); Z11.52 Encounter for screening for COVID-19
CPT/HCPCS: 0241U

== ENCOUNTER 2023-09-09 08:35 | Outpatient (AMB) | payer MEDICARE, OTHER, SELFPAY ==
--- NOTE | 2023-09-09 09:05 | A.OFFVIS_ITS ---
Intake Intake Visit Reasons: 6wks follow up/PVR Intake Note: Patient presents today for a follow-up on PVR Nocturia: Meds- Alfuzosin Allergies to Antibiotic- Sulfa & Bactrim Blood Thinner- None Post Void Residual: 0mL Waist Fitter Required: No Accompanied by: Self / Same As Patient Allergies sulfamethoxazole [From BACTRIM] Allergy (Intermediate, Verified 09/08/23 08:09) HIVES trimethoprim [From BACTRIM] Allergy (Intermediate, Verified 09/08/23 08:09) HIVES HPI HPI Comments History of Present Illness Details Harjit is a 72 year old male who is here for evaluation for nocturia. Past Medical history -- History of subdural hematoma (~2017) Diabetes (~2021) history of MRSA infection (~2014) Hx of vertigo Sleep apnea GERD (gastroesophageal reflux disease) Hypertension Hyperlipidemia 09/09/23--Here for FU, Harjit was initially evaluated on 08/03/2023, The patient complains of daytime urinary frequency every hour, states feels like he would leak if he doesn't make it to the bathroom in time. nocturia x2, denies hematuria, denies dysuria, feeling of incomplete bladder emptying. He was started on alfuzosin. He states that he has a stronger urinary flow. Less urinary frequency during the daytime. He drinks 2 cups of coffee 630 and 10:00. I want him to cut back to only 1 cup of coffee. The patient states he was seen yesterday by Hematology or polycythemia. I have reviewed chart, PSA 1.52- 08/2022. I reviewed renal ultrasound 08/03/2023 numerous bilateral renal cysts Plan-- continue Alfuzosin 10 mg daily Bilateral renal cysts the patient is followed by [facility]. [facility] Medical History History of subdural hematoma (~2017) Diabetes (~2021) History of MRSA infection (~2015) Hx of vertigo Sleep apnea GERD (gastroesophageal reflux disease) Hypertension Hyperlipidemia Surgical History S/P scrotal varicocelectomy History of brain surgery History of endoscopy History of vasectomy History of varicose vein stripping History of appendectomy History of colonoscopy History of incision and drainage Family History Father Diabetes Hypertension Mother No problems noted. Social History Housing: House Are you a primary manager managed care to a significant other at home: No Do you presently have visiting nurse or other home services: No Alcohol intake: current Alcohol intake frequency: a few times a week Patient Tobacco Use Status: Former Tobacco user Quit Date: 1989 Tobacco use type: Cigarette Years Smoked: 5 e-Cigarette/Vaping Use: Never Used Second Hand Smoke Exposure: No Advance Directives Date on File: 02/02/21 service: Yes Current occupational status: retired Cognitive needs: No Hearing needs: No Vision needs: No Review of Systems Const All systems reviewed & are unremarkable except as noted in HPI and below Reports no additional complaints Eyes Reports no additional complaints ENT Reports no additional complaints Card Denies dyspnea Resp Denies cough and Denies dyspnea GI Reports no additional complaints Musc Reports no additional complaints Skin/Breast Denies rash and Denies unusual bruising Neuro Reports no additional complaints Psych Reports no additional complaints Endo Reports no additional complaints Bandar/Lymph Reports no additional complaints Aller/Immun Reports no additional complaints Results AMB Urinalysis, Automated UA Leukoctes 0 Joshua/uL Last Edit by PIPE Ahn on 09/09/23 09:18 UA Nitrite Negative Last Edit by PIPE Ahn on 09/09/23 09:18 UA Urobilinogen 0.2 mg/dL Last Edit by PIPE Ahn on 09/09/23 09:1 8 UA Protein 15 mg/dL Last Edit by PIPE Ahn on 09/09/23 09:18 UA pH 6.0 Last Edit by PIPE Ahn on 09/09/23 09:18 UA Blood 0 Jared/uL Last Edit by PIPE Ahn on 09/09/23 09:18 UA Specific [place] 1.015 Last Edit by PIPE Ahn on 09/09/23 09: 18 UA Ketone Negative Last Edit by PIPE Ahn on 09/09/23 09:18 UA Bilirubin 0 mg/dL Last Edit by PIPE Ahn on 09/09/23 09:18 UA Glucose 0 mg/dL Last Edit by PIPE Ahn on 09/09/23 09:18 Results Reviewed Results Reviewed: Laboratory Last Values Urine pH (Auto) 6.0 09/09/23 09:16 Specific [place] (Auto) 1.015 09/09/23 09:16 Urine Protein (Auto) 15 mg/dL 09/09/23 09:16 Glucose (UA)(Auto) 0 mg/dL 09/09/23 09:16 Urine Ketones (Auto) Negative 09/09/23 09:16 Urine Blood (Auto) 0 Jared/uL 09/09/23 09:16 Urine Nitrite (Auto) Negative 09/09/23 09:16 Urine Bilirubin (Auto) 0 mg/dL 09/09/23 09:16 Urine Urobilinogen (Auto) 0.2 mg/dL 09/09/23 09:16 Leukocyte Esterase (Auto) 0 Joshua/uL 09/09/23 09:16 Date of Service: 08/03/23 EXAMINATION: US RETROPERITONEAL LIMITED (RENAL ONLY) CLINICAL INFORMATION: Chronic kidney disease, unspecified. No multicystic kidneys. COMPARISON: CT abdomen and pelvis 07/12/2015. TECHNIQUE: Real-time imaging of the kidneys. Limited visualization due to bowel gas. FINDINGS: RIGHT KIDNEY: 12.4 x 6.3 x 5.8 cm (SAG x AP x TRV). No hydronephrosis. No renal calculi. Limited visualization. Innumerable renal cysts, largest 9.8 x 8.7 x 13.4 cm lower pole appears mildly complex with low-level internal echoes. 2.6 x 2.1 x 2.2 cm mildly complex midpole cyst. 6.8 x 7.1 x 7.5 cm upper pole cyst appears simple. Innumerable additional smaller cysts, some of which are difficult to characterize due to limited visualization. LEFT KIDNEY: 17.5 x 9.0 x 10.8 cm (SAG x AP x TRV). No hydronephrosis. No renal calculi. Limited visualization. Lower pole 6.0 x 4.6 x 4.6 cm cyst appears simple. Upper pole 20.5 x 10.0 x 12.1 cm complex cyst with septation versus 2 adjacent cysts difficult to characterize due to the large size. Midpole 6.3 x 5.4 x 5.0 cm possibly complex cyst. Innumerable additional smaller cysts, some of which are difficult to characterize due to limited visualization. US/US renal BI IMPRESSION: Bilateral enlarged kidneys with innumerable bilateral renal cysts, some of which are difficult to characterize due to limited visualization. Dedicated CT scan employing renal mass protocol with images obtained both prior to and following intravenous contrast recommended. Assessment & Plan Assessment & Plan (1) BPH loc w urin obs/LUTS: Code(s): N40.1 - Benign prostatic hyperplasia with lower urinary tract symptoms (2) Urinary frequency: Code(s): R35.0 - Frequency of micturition (3) Diabetes: Onset Date: ~2021 Comment: (DM2 - dx 04/2022) Code(s): E11.9 - Type 2 diabetes mellitus without complications (4) CKD (chronic kidney disease): Code(s): N18.9 - Chronic kidney disease, unspecified (5) Bilateral renal cysts: Code(s): N28.1 - Cyst of kidney, acquired Plan continue Alfuzosin 10 mg daily Bilateral renal cysts the patient is followed by [facility]. Follow-up in 6 months Orders: Orders AMB Urinalysis Automated Today Z13.9 - Encounter for screening, unspecified AMB Post Void Residual by ultrasound Today N39.8 - Other specified disorders of urinary system Patient Instructions: The patient had an opportunity to ask questions regarding treatment plan. All questions were answered. Imaging, Laboratory studies and physical exam results were discussed and reviewed in detail. No major barriers to understanding were identified. The patient expressed understanding and agreement with the above treatment plan. The patient is aware they should contact our office by phone for worsening of their current condition or the appearance of new symptoms. Compliance is encouraged with any medications and followup testing that is ordered. It is a privilege to be allowed the opportunity to participate in the urologic care of your patient. If you have any questions or concerns regarding treatment for the above conditions please do not hesitate to contact me. The office telephone contact is [phone]. This note is constructed in part using voice recognition software. While every effort has been made to ensure accuracy ostomy care nurse errors may have been included. Yours sincerely, Chaparro Maharaj MD Coding Level of Care Code Est Pt Level 4 (92190) Diagnoses BPH loc w urin obs/LUTS N40.1 Urinary frequency R35.0 Diabetes E11.9 CKD (chronic kidney disease) N18.9 Bilateral renal cysts N28.1
== END 2023-09-09 09:45 | disposition home or self-care (01) ==
PROVIDERS: PCP Nurse Practitioner Family; Visit Provider Urology
DX: N40.1 Benign prostatic hyperplasia with lower urinary tract symptoms (principal); R35.0 Frequency of micturition; E11.9 Type 2 diabetes mellitus without complications; N18.9 Chronic kidney disease, unspecified; N28.1 Cyst of kidney, acquired; Z13.9 Encounter for screening, unspecified
CPT/HCPCS: 99214

== ENCOUNTER → 2023-09-09 08:35 | Outpatient (BNVA) | payer MEDICARE, OTHER, SELFPAY | PROVIDERS: PCP Nurse Practitioner Family; Visit Provider Urology | DX: N40.1 Benign prostatic hyperplasia with lower urinary tract symptoms (principal); R35.0 Frequency of micturition; N28.1 Cyst of kidney, acquired; E11.22 Type 2 diabetes mellitus with diabetic chronic kidney disease; N18.9 Chronic kidney disease, unspecified | CPT/HCPCS: 81003; 99212 ==

== ENCOUNTER 2023-10-26 07:29 | Outpatient (REF) | payer MEDICARE, OTHER, SELFPAY ==
[2023-10-26 11:58] LABS: Anion Gap 13 (12-20); Blood Urea Nitrogen 33 mg/dL (9-16); Calcium 9.2 mg/dL (8.4-10.2); Carbon Dioxide 27 mmol/L (22-29); Chloride 106 mmol/L (96-108); Estimated Glomerular Filt Rate 44; Potassium 4.1 mmol/L (3.3-5.1); Sodium 142 mmol/L (135-145)
== END 2023-10-26 07:30 | disposition home or self-care (01) ==
LOC: HO.HMGCLDS 07:29
PROVIDERS: PCP Nurse Practitioner Family; Visit Provider Internal Medicine Hypertension Specialist
DX: N18.9 Chronic kidney disease, unspecified (principal)
CPT/HCPCS: 36415; 80051; 82310; 82565; 84520

== ENCOUNTER 2023-10-31 11:39 | Outpatient (AMB) | payer MEDICARE, OTHER, SELFPAY ==
[2023-10-31 11:40] VITALS: BP 138/72; PULSE 79; O2SAT 96; BMI 28.9
--- NOTE | 2023-10-31 11:40 | HO.NEPHOV_ITS ---
HPI HPI Comments History of Present Illness Details 72-year-old man with a history of longst anding hypertension. He was on lisinopril 20/12.5 mg 1 a day. He was feeling lightheaded. This has been decreased to half a tablet a day. He has been watching his blood pressure at home. Usually blood pressure control. He states sometimes blood pressure goes of while in the doctor's office. Nine he suspects he might have white coat hypertension. Serum creatinine is 1.29. Last year creatinine was 1.4. There has been fluctuations in creatinine 1.4-1.2. He has been referred for evaluation renal insufficiency. History of subdural hematoma few years ago. This was secondary to trauma. 07/28/23: HCTZ was stopped. NO improvement in creatinine Baseline is 1.33 Home SBP is 147 and 148 Has some difficulty urinating Waiting to see Urology 10/30 Events noted USG shows cysts with possible complex cyst Waiting for CT scan Seen by [facility] for Polycyethemia [facility] Medical History History of subdural hematoma (~2017) Diabetes (~2021) History of MRSA infection (~2014) Hx of vertigo Sleep apnea GERD (gastroesophageal reflux disease) Hypertension Hyperlipidemia Surgical History S/P scrotal varicocelectomy History of brain surgery History of endoscopy History of vasectomy History of varicose vein stripping History of appendectomy History of colonoscopy History of incision and drainage Family History Father Diabetes Hypertension Mother No problems noted. Social History Housing: House Are you a primary primary care physician to a significant other at home: No Do you presently have visiting nurse or other home services: No Alcohol intake: current Alcohol intake frequency: a few times a week Patient Tobacco Use Status: Former Tobacco user Quit Date: 1989 Tobacco use type: Cigarette Years Smoked: 5 e-Cigarette/Vaping Use: Never Used Second Hand Smoke Exposure: No Advance Directives Date on File: 02/02/21 service: Yes Current occupational status: retired Cognitive needs: No Hearing needs: No Vision needs: No Vital Signs 10/31/23 11:40 Height 5 ft 8 in Weight 190 lb BMI 28.9 BP 138/72 Blood Pressure Location Lt brachial Position Sitting Pulse 79 Pulse Source Pulse Oximeter Pulse Oximetry (%) 96 Oxygen Delivery Method Room Air Physical Exam Vital Signs: Last Vital Signs Pulse 79 10/31/23 11:40 BP 138/72 10/31/23 11:40 Pulse Ox 96 10/31/23 11:40 Oxygen Delivery Method Room Air 10/31/23 11:40 BMI result Body Mass Index 28.9 Const General: comfortable Nutritional Appearance: well nourished Orientation/consciousness: patient oriented x3 HEENT Head: No normal to inspection Mouth: moist mucous membranes Neck Neck: Yes supple and Yes no JVD Resp Auscultation: clear to auscultation bilaterally, no rales and rub present Cardio Jugular venous distension: no JVD Palpation: no palpable S3 and no palpable S4 Heart sounds: no rubs GI Palpation (GI): Soft to palpation and nontender Percussion: No Fluid wave present General: Yes no CVA tenderness Back/Spine/Pelvis Back: no CVA tenderness Skin General skin exam: no rashes or lesions noted Neuro General: patient oriented x3 Extrem General: Yes no pedal edema and No clubbing Assessment & Plan Assessment & Plan (1) CKD (chronic kidney disease): Code(s): N18.9 - Chronic kidney disease, unspecified (2) Microalbuminuria: Code(s): R80.9 - Proteinuria, unspecified (3) HTN (hypertension): Code(s): I10 - Essential (primary) hypertension (4) Polycythemia: Code(s): D75.1 - Secondary polycythemia (5) Restrictive lung disease: Comment: PFTs May 2023 Forced vital capacity 66%. FEV1 is 78%. FEV1/FVC ratio is 86. CAD16-59 125% and MVV 78%. Post bronchodilator therapy, there is slight increase in AMN38-32, but no change in FVC or FEV1. Total lung capacity 63%, residual volume 72%. Diffusion capacity 117%. CONCLUSION: 1. Moderately severe restrictive pulmonary disorder. 2. No obstructive airway disorder. Code(s): J98.4 - Other disorders of lung (6) Bilateral renal cysts: Code(s): N28.1 - Cyst of kidney, acquired (7) Polycythemia: Code(s): D75.1 - Secondary polycythemia Plan [age] old man with CKD in setting hypertension and CKD Keep Lisinopril 10 mg QD Keep hydrochlorothiazide 12.5 mg to optimize BP monitor his blood pressure at home. No need for 24 hour ambulatory blood pressure monitoring yet The meantime stay on low-sodium diet / increase fluid intake. renal ultrasonogram shows multiple cyst with possible complex cyst - CT pending He has minimal proteinuria due to underlying hypertensive kidney disease. No significant hematuria and interstitial nephritis seems unlikely at this point. If creatinine continues to increase, would DC lisinopril /HCT and try Amlodipine Polycythemia - probably due to Restrictive lung diz. However, wiht the renal cyst, excessive erythropoeitin production is a possibility Await CT scan to r/o renal mass Follow with Oncology Orders: Orders Total Protein Urine Random 3 Months D75.1 - Secondary polycythemia, N18.9 - Chronic kidney disease, unspecified, N28.1 - Cyst of kidney, acquired Basic Metabolic Panel 3 Months D75.1 - Secondary polycythemia, N18.9 - Chronic kidney disease, unspecified, N28.1 - Cyst of kidney, acquired Creatinine Urine 3 Months D75.1 - Secondary polycythemia, N05.9 - Unspecified nephritic syndrome with unspecified morphologic changes, N18.9 - Chronic kidney disease, unspecified, N28.1 - Cyst of kidney, acquired Coding Level of Care Code Est Pt Level 4 (70098) Diagnoses CKD (chronic kidney disease) N18.9 Microalbuminuria R80.9 HTN (hypertension) I10 Polycythemia D75.1 Restrictive lung disease J98.4 Bilateral renal cysts N28.1 Results Reviewed Nephrology Results: Hgb 17.4 g/dl (14.0-18.0) 09/08/23 WBC 6.4 X10*3/uL (4.8-10.8) 09/08/23 Plt Count 143 X10*3/uL (160-400) L 09/08/23 Sodium 142 mmol/L (135-145) 10/26/23 Potassium 4.1 mmol/L (3.3-5.1) 10/26/23 Chloride 106 mmol/L (96-108) 10/26/23 Carbon Dioxide 27 mmol/L (22-29) 10/26/23 BUN 33 mg/dL (9-16) H 10/26/23 Creatinine 1.56 mg/dL (0.5-1.4) H 10/26/23 Calcium 9.2 mg/dL (8.4-10.2) 10/26/23 Renal US 08/03/23
== END 2023-10-31 12:11 | disposition home or self-care (01) ==
PROVIDERS: PCP Nurse Practitioner Family; Visit Provider Internal Medicine Hypertension Specialist
DX: I12.9 Hypertensive chronic kidney disease with stage 1 through stage 4 chronic kidney disease, or unspecified chronic kidney disease (principal); N18.9 Chronic kidney disease, unspecified; R80.9 Proteinuria, unspecified; D75.1 Secondary polycythemia; J98.4 Other disorders of lung; N28.1 Cyst of kidney, acquired
CPT/HCPCS: 99214

== ENCOUNTER → 2023-10-31 11:39 | Outpatient (BNVA) | payer MEDICARE, OTHER, SELFPAY | PROVIDERS: PCP Nurse Practitioner Family; Visit Provider Internal Medicine Hypertension Specialist | DX: I12.9 Hypertensive chronic kidney disease with stage 1 through stage 4 chronic kidney disease, or unspecified chronic kidney disease (principal); N18.9 Chronic kidney disease, unspecified; R80.9 Proteinuria, unspecified; D75.1 Secondary polycythemia; J98.4 Other disorders of lung; N28.1 Cyst of kidney, acquired | CPT/HCPCS: 99212 ==

== ENCOUNTER 2023-11-12 07:22 | Outpatient (REF) | payer MEDICARE, OTHER, SELFPAY ==
[2023-11-12 07:45] LABS: MANUAL DIFF FLAG NO
[2023-11-12 07:55] LABS: Basophils Percent Auto 0.5 % (0-2); Eosinophils Absolute Auto 0.1 X10*3/uL (0.0-0.4); Eosinophils Percent Auto 2.1 % (0-4); Hematocrit 52.1 % (42.0-52.0); Hemoglobin 17.7 g/dl (14.0-18.0); Imm Gran Abs Auto 0.02 X10*3/uL (0.00-0.03); Imm Gran Pct Auto 0.3 % (0.0-0.4); Lymphocytes Absolute Auto 1.1 X10*3/uL (1.2-4.9); Lymphocytes Percent Auto 17.2 % (20-40); Mean Corpuscular Volume 88.3 fL (80.0-98.0); Monocytes Absolute Auto 0.4 X10*3/uL (0.1-1.2); Neutrophils Absolute Auto 4.6 x10*3/uL (2.0-8.3); Neutrophils Percent Auto 72.9 % (45-73); Platelet Count 162 X10*3/uL (160-400); Red Cell Distribution Width 12.1 % (11.0-16.0); White Blood Count 6.3 X10*3/uL (4.8-10.8)
[2023-11-12 08:33] LABS: Alanine Aminotransferase 22 U/L (0-40); Albumin Level 4.1 g/dL (3.5-5.0); Alkaline Phosphatase 67 U/L (39-117); Anion Gap 12 (12-20); Aspartate Amino Transferase 21 U/L (5-37); Bilirubin Total 0.9 mg/dL (0.0-1.0); Blood Urea Nitrogen 24 mg/dL (9-16); Calcium 9.3 mg/dL (8.4-10.2); Carbon Dioxide 28 mmol/L (22-29); Chloride 104 mmol/L (96-108); Estimated Glomerular Filt Rate 51; Glucose Random 119 mg/dL (60-115); Potassium 4.3 mmol/L (3.3-5.1); Sodium 140 mmol/L (135-145); Total Protein 6.4 g/dL (6.5-8.0)
== END 2023-11-12 07:23 | disposition home or self-care (01) ==
LOC: HO.LAB 07:22
PROVIDERS: PCP Nurse Practitioner Family; Visit Provider Internal Medicine Medical Oncology
DX: D75.1 Secondary polycythemia (principal); N28.1 Cyst of kidney, acquired
CPT/HCPCS: 36415; 80053; 85025

== ENCOUNTER 2023-11-14 08:16 | Outpatient (REF) | payer MEDICARE, OTHER, SELFPAY ==
--- NOTE | ~2023-11-14 | CT_ITS ---
EXAMINATION: CT ABDOMEN AND PELVIS WITH CONTRAST CLINICAL INFORMATION: Follow-up renal cysts. COMPARISON: CT abdomen and pelvis 07/12/2015. TECHNIQUE: Multidetector volumetric images were obtained from the superior aspect of the liver through the pubic symphysis following administration 85 mL of Omnipaque 350 intravenous contrast. Sagittal and coronal reformatted images were obtained on the technologist's workstation. Oral contrast: No This CT examination was performed using dose optimization techniques as appropriate, variously including the following: *Automated exposure control *Adjustment of mA and/or kV according to patient size (this includes techniques or standardized protocols for targeted exams where dose is matched to indication/reason for exam; i.e. extremities or head) *Use of iterative reconstruction technique DLP: 433 mGy-cm FINDINGS: LUNG BASES: No suspicious lung nodules. LIVER, GALLBLADDER, AND BILIARY TREE: Stable cysts in the liver. No follow-up imaging is recommended. Likely steatosis. No biliary ductal dilatation. The gallbladder is unremarkable with no evidence of radiopaque gallstones, gallbladder wall thickening, or obvious pericholecystic inflammatory changes. PANCREAS: No discrete mass. No ductal dilatation. SPLEEN: Normal. ADRENAL GLANDS: No adrenal mass. KIDNEYS AND URETERS: Mild enlargement of multiple cysts in both kidneys. The majority of these measure simple density however there are 3 nonsimple lesions: 1. 2.2 cm posterior mid to upper left kidney 23 Hounsfield units unchanged in size compared to 2015. 2. 0.9 cm bilateral lower right kidney 33 Hounsfield units new compared to 2015. 3. 6.3 cm lower right kidney 21 Hounsfield units increased from 3.8 cm in 2015. No hydronephrosis. No nephrolithiasis. BLADDER: Unremarkable. GASTROINTESTINAL TRACT: Small bowel is normal in caliber. Severe diverticulosis of the sigmoid colon. ABDOMINAL WALL: Small fat-containing umbilical hernia. LYMPH NODES: No lymphadenopathy. VASCULAR: No aortic aneurysm. Mild aortoiliac atherosclerosis. PELVIC VISCERA: Enlarged prostate. OSSEOUS STRUCTURES: Degenerative changes in the spine and hips. CT/CT abdomen pelvis w IV con IMPRESSION: Numerous bilateral renal cysts, most of which are simple and do not require follow-up. There are 3 nonsimple lesions in the kidneys as described above most likely but not definitely reflecting proteinaceous/hemorrhagic cysts. Characterization is limited because this CT does not include noncontrast imaging. Recommend follow-up CT abdomen without and with contrast in 6-12 months. Fleischner guidelines were followed.
[2023-11-14] MEDS: iohexoL 350 MG/ML 100 ML INFUS..BTL IV (09:19)
== END 2023-11-14 08:17 | disposition home or self-care (01) ==
LOC: HO.CT 08:16
PROVIDERS: PCP Nurse Practitioner Family; Visit Provider Internal Medicine Medical Oncology
DX: N28.1 Cyst of kidney, acquired (principal); D75.1 Secondary polycythemia
CPT/HCPCS: 74177; Q9967

== ENCOUNTER 2023-11-28 08:49 | Outpatient (AMB) | payer MEDICARE, OTHER, SELFPAY ==
--- NOTE | 2023-11-28 08:53 | A.OFFPC_ITS ---
Vital Signs 11/28/23 08:55 Weight 188 lb 8 oz BP 110/64 Blood Pressure Location Rt brachial Position Sitting Pulse 74 Pulse Source Pulse Oximeter Pulse Oximetry (%) 96 Oxygen Delivery Method Room Air Intake Visit Reasons: 6 month follow up Intake Note: Patient here for diabetic f/u. pt states he has not been checking sugars at home. Allergies sulfamethoxazole [From BACTRIM] Allergy (Intermediate, Verified 11/28/23 08:56) HIVES trimethoprim [From BACTRIM] Allergy (Intermediate, Verified 11/28/23 08:56) HIVES Medication List - Last Reconciled 11/28/23 by AV Voss-ROMERO alfuzosin ER 10 mg PO DAILY atorvastatin 20 mg PO BEDTIME 90 days blood sugar diagnostic (FreeStyle Lite Strips) As directed cetirizine (All Day Allergy (cetirizine)) 10 mg PO DAILY PRN lisinopril 10 mg PO DAILY meclizine 25 mg PO BID PRN 20 days omeprazole magnesium (Prilosec OTC) 20 mg PO DAILY Tobacco use date assessed: 11/28/23 Fall risk assessment: No Falls in past year Last assessed Fall Risk: 11/28/23 Dental Screening Dental Screen Date: 11/28/23 Did you have a dental visit in the last 12 months?: Yes Did you have a dental problem in the last 6 months where you did not have access to dental care?: No Was dental information given to patient?: Patient has dentist HPI 6 month follow up HPI0 Details Pt is a diabetic, on an EUNICE and a statin. A1C in office today is 5.6. Microalbumin is up to date. 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 Pt denies any signs and symptoms of hypoglycemia and does know how to correct it. Eye exam is up to date. Pt is watching his salt intake. Pt follows up with pulmonology, vascular, urology, hematology, and nephrology. [facility] Medical History History of subdural hematoma (~2018) Diabetes (~2021) History of MRSA infection (~2014) Hx of vertigo Sleep apnea GERD (gastroesophageal reflux disease) Hypertension Hyperlipidemia Surgical History S/P scrotal varicocelectomy History of brain surgery History of endoscopy History of vasectomy History of varicose vein stripping History of appendectomy History of colonoscopy History of incision and drainage Family History (Reviewed 11/28/23 @ 09:16 by Wicho Townsend [facility]) Father Diabetes Hypertension Mother No problems noted. Social History Housing: House Are you a primary day care teacher to a significant other at home: No Do you presently have visiting nurse or other home services: No Alcohol intake: current Alcohol intake frequency: a few times a week Patient Tobacco Use Status: Former Tobacco user Quit Date: 1989 Tobacco use type: Cigarette Years Smoked: 5 e-Cigarette/Vaping Use: Never Used Second Hand Smoke Exposure: No Advance Directives Date on File: 02/02/21 service: Yes Current occupational status: retired Cognitive needs: No Hearing needs: No Vision needs: No Questionnaire PHQ-9 Over the last 2 weeks, how often have you been bothered by any of the following problems? 20845 - PHQ-9 Billing: Patient declined-do not bill Source: Developed by Drs. Jeison Sampson, Kenyatta Brock, Marc Medrano and colleagues, with an educational ele from [employer]. Thrive Questionnaire Date Thrive assessed: 11/28/23 What is your living situation today?: I choose not to answer this question Within the past 12 months, did the food you bought not last and you didn't have the money to get more?: I choose not to answer this question Within the past 12 months, did you worry whether your food would run out before you got money to buy more?: I choose not to answer this question Do you have trouble paying for medicines?: I choose not to answer this question Do you have trouble getting transportation to medical appointments?: I choose not to answer this question Do you have trouble paying your heating and electricity bill?: I choose not to answer this question Do you have trouble taking care of your child, family member or friend?: I choose not to answer this question Do you have trouble with day-to-day activities such as bathing, preparing meals, shopping, managing finances, etc.?: I choose not to answer this question Are you currently unemployed and looking for a job?: I choose not to answer this question Are you interested in more education?: I choose not to answer this question Currently or been in a relationship where the following occur: I choose not to answer this question THRIVE Score: 0 AUDIT C Alcohol Use Questionnaire (AUDIT-C) 1. How often do you have a drink containing alcohol?: 2-4 times a month 2. How many drinks containing alcohol do you have on a typical day when you are drinking?: 1 or 2 3. How often do you have six or more drinks on one occasion?: Never Total Score: 2 Score Reviewed/Action Taken: No JESUS-7 AMB Questionnaire JSEUS-7 Date JESUS - 7 assessed: 11/28/23 Source: Developed by Drs. Jeison Sampson, Kenyatta Brock, Marc Medrano and colleagues, with an educational ele from [employer]. JESUS-7 Assessment Billing JESUS-7 Assessment Tool: pt declined-do not bill Review of Systems Const Reports as per HPI Physical exam (Primary Care) Vital Signs: Last Vital Signs Pulse 74 11/28/23 08:55 BP 110/64 11/28/23 08:55 Pulse Ox 96 11/28/23 08:55 Oxygen Delivery Method Room Air 11/28/23 08:55 Tobacco/Smoking Status: Tobacco use Status Tobacco use date assessed 11/28/23 11/28/23 08:59 Patient Tobacco Use Status Former Tobacco user 11/28/23 08:55 Tobacco use type Cigarette 11/28/23 08:55 e-Cigarette/Vaping Use Never Used 11/28/23 08:55 Thrive Assessment: Date of Thrive Assessment Date Thrive assessed 11/28/23 11/28/23 09:15 Currently or been in a relationship where the following occur: I choose not to answer this question Const General: cooperative Orientation/consciousness: patient oriented x3 Resp Effort & Inspection: normal respiratory effort Auscultation: clear to auscultation bilaterally Cardio Rate: regular rate Rhythm: regular rhythm Heart sounds: S1 normal heart sound present and S2 normal heart sound present Neuro General: patient oriented x3 Extrem Other: bilat feet: + sensation with use of monofilament, feet intact Right lower extremity: no edema Left lower extremity: no edema Psych Appearance: grossly normal Mental Status: mental status grossly normal Speech and movement: Normal speech and movement present Affect: normal affect Attitude: cooperative Thought process: Normal thought process present Thought content: Normal thought content present Insight: Good insight present (Psych) Judgement: Good judgement present (Psych) Results AMB Hemoglobin A1c AMB Hemoglobin A1c 5.6 % Last Edit by HEMANT Zavala on 11/28/23 09 :13 Results Reviewed Results Reviewed: Laboratory Last Values Hgb A1c (Clinic) 5.6 % (4.0-6.0) 11/28/23 09:12 Assessment and Plan Assessment & Plan (1) Diabetes: Onset Date: ~2021 Comment: (DM2 - dx 04/2022) Code(s): E11.9 - Type 2 diabetes mellitus without complications Plan: Labs ordered Plan The patient agreed to the use of a director of graduate medical education for this encounter. Scribed for GIRISH Alejandro by Josselin Tavera director of graduate medical education, on 11/28/2023 at 09:15 EST. Orders: Orders Complete Blood Count Auto Diff Today E11.9 - Type 2 diabetes mellitus without complications Comprehensive [place]. Panel Fast Today E11.9 - Type 2 diabetes mellitus without complications TSH reflex Free T4 Today E11.9 - Type 2 diabetes mellitus without complications UA CC w/rflx Micro + Cult Today E11.9 - Type 2 diabetes mellitus without complications Lipid Panel Today E11.9 - Type 2 diabetes mellitus without complications Prostate Specific Antigen Scr Today E11.9 - Type 2 diabetes mellitus without complications AMB Hemoglobin A1c Today Z13.9 - Encounter for screening, unspecified Coding Level of Care Code Est Pt Level 3 (97298) Diagnoses Diabetes E11.9
[2023-11-28 08:55] VITALS: BP 110/64; PULSE 74; O2SAT 96
== END 2023-11-28 10:07 | disposition home or self-care (01) ==
PROVIDERS: PCP Nurse Practitioner Family; Visit Provider Nurse Practitioner Family
DX: E11.9 Type 2 diabetes mellitus without complications (principal)
CPT/HCPCS: 83036; 99213

== ENCOUNTER 2023-12-08 09:56 | Outpatient (AMB) | payer MEDICARE, OTHER, SELFPAY ==
--- NOTE | 2023-12-08 10:05 | A.OFFVIS_ITS ---
Intake Visit Reasons: 6 month leg check Intake Note: Patient presents for 6 month leg check. Had right calf mass excision on 05/13/23. States the right leg feels much better. Has pain in left leg occasionally . Is questioning whether or not he needs a procedure on the left leg . Allergies sulfamethoxazole [From BACTRIM] Allergy (Intermediate, Verified 12/08/23 10:08) HIVES trimethoprim [From BACTRIM] Allergy (Intermediate, Verified 12/08/23 10:08) HIVES HPI HPI 6 month leg check: Details: Very pleasant 73-year-old gentleman presents for follow-up regarding venous disease. He would undergone right lower extremity microphlebectomy and developed a postprocedure seroma. It was drained and he was treated with doxycycline. Reports it has currently resolved. He is doing much better. Does have some mild varicosities on his left lower extremity but he is relatively asymptomatic from that. He is compliant with his compression stockings [facility] Medical History History of subdural hematoma (~2017) Diabetes (~2021) History of MRSA infection (~2014) Hx of vertigo Sleep apnea GERD (gastroesophageal reflux disease) Hypertension Hyperlipidemia Surgical History S/P scrotal varicocelectomy History of brain surgery History of endoscopy History of vasectomy History of varicose vein stripping History of appendectomy History of colonoscopy History of incision and drainage Family History Father Diabetes Hypertension Mother No problems noted. Social History Housing: House Are you a primary care navigator to a significant other at home: No Do you presently have visiting nurse or other home services: No Alcohol intake: current Alcohol intake frequency: a few times a week Patient Tobacco Use Status: Former Tobacco user Quit Date: 1989 Tobacco use type: Cigarette Years Smoked: 5 e-Cigarette/Vaping Use: Never Used Second Hand Smoke Exposure: No Advance Directives Date on File: 02/02/21 service: Yes Current occupational status: retired Cognitive needs: No Hearing needs: No Vision needs: No Review of Systems Const Reports as per HPI ENT Reports no additional complaints Card Denies chest pain, Denies chest pain at rest and Denies chest pain with activity Resp Denies chest congestion and Denies cough GI Reports no additional complaints Musc Details: pain over varicosities, aching of lower extremities, swelling, cramping, heaviness and tiredness, itching Denies abnormal gait Skin/Breast Reports pruritus and Denies wounds Neuro Reports no additional complaints and Denies abnormal gait Psych Denies no additional complaints Physical Exam Const General: cooperative, healthy appearing and comfortable Orientation/consciousness: oriented to person, oriented to place and oriented to time Neck Carotids: no bruits Chest Chest palpation & inspection: normal inspection of the chest and normal palpation of entire chest wall Resp Effort & Inspection: normal respiratory effort and able to speak in complete sentences Cardio Rate: regular rate Heart sounds: S1 normal heart sound present and S2 normal heart sound present Peripheral pulses: Peripheral pulses 2+ throughout GI Inspection: Yes normal to inspection Skin Other: +2 edema, large rope-like varicosities greater than 4 mm CEAP Classification C4 - skin color changes Ep - Etiology Primary As - superficial veins P - reflux General skin exam: dry skin Neuro General: oriented to person, oriented to place and oriented to time Extrem Right lower extremity: full ROM, normal capillary refill and edema Left lower extremity: full ROM, normal capillary refill and edema Psych Mental Status: mental status grossly normal Assessment & Plan Assessment & Plan (1) Varicose veins of right lower extremity with inflammation: Comment: June 2019- right GSV Radiofrequency ablation and microphlebectomy x2 03/28/2023- right leg microphlebectomy Code(s): I83.11 - Varicose veins of right lower extremity with inflammation Category: Medical Plan: Patient has done well with his right lower extremity venous procedures. He does need some venous procedures on the left lower extremity but at the current time he would like to hold off. We did discuss routine conservative measures including compression, elevation, and exercise. He will follow up with us on an as-needed basis. Thank you for allowing us to assist in his care. If there are any questions or concerns please do not hesitate to contact us. Coding Level of Care Code Est Pt Level 3 (70430) Diagnoses Varicose veins of right lower extremity with inflammation I83.11
== END 2023-12-08 10:30 | disposition home or self-care (01) ==
PROVIDERS: PCP Nurse Practitioner Family; Visit Provider Surgery Vascular Surgery
DX: I83.11 Varicose veins of right lower extremity with inflammation (principal)
CPT/HCPCS: 99213

== ENCOUNTER → 2023-12-08 09:56 | Outpatient (BNVA) | payer MEDICARE, OTHER, SELFPAY | PROVIDERS: PCP Nurse Practitioner Family; Visit Provider Surgery Vascular Surgery | DX: I83.11 Varicose veins of right lower extremity with inflammation (principal) | CPT/HCPCS: 99212 ==

== ENCOUNTER 2024-01-24 07:37 | Outpatient (REF) | payer MEDICARE, OTHER, SELFPAY ==
[2024-01-24 10:47] LABS: Creatinine Urine 137.28 mg/dL; Total Protein Urine Random 9 mg/dL (<12)
[2024-01-24 10:54] LABS: Anion Gap 13 (12-20); Blood Urea Nitrogen 28 mg/dL (9-16); Calcium 9.1 mg/dL (8.4-10.2); Carbon Dioxide 28 mmol/L (22-29); Chloride 106 mmol/L (96-108); Estimated Glomerular Filt Rate 47; Glucose Random 112 mg/dL (60-115); Potassium 4.3 mmol/L (3.3-5.1); Sodium 143 mmol/L (135-145)
== END 2024-01-24 07:38 | disposition home or self-care (01) ==
LOC: HO.HMGCLDS 07:37
PROVIDERS: PCP Nurse Practitioner Family; Visit Provider Internal Medicine Hypertension Specialist
DX: N28.1 Cyst of kidney, acquired (principal); D75.1 Secondary polycythemia; N18.9 Chronic kidney disease, unspecified; N05.9 Unspecified nephritic syndrome with unspecified morphologic changes
CPT/HCPCS: 36415; 80048; 82570; 84156

== ENCOUNTER 2024-01-30 11:43 | Outpatient (AMB) | payer MEDICARE, OTHER, SELFPAY ==
[2024-01-30 11:54] VITALS: BP 126/70; PULSE 82; O2SAT 95; BMI 28.4
--- NOTE | 2024-01-30 11:54 | HO.NEPHOV_ITS ---
Vital Signs 01/30/24 11:54 Height 5 ft 8 in Weight 187 lb BMI 28.4 BP 126/70 Blood Pressure Location Rt brachial Position Sitting Pulse 82 Pulse Source Pulse Oximeter Pulse Oximetry (%) 95 Oxygen Delivery Method Room Air Intake Visit Reasons: Bilateral renal cysts/ 3 MO FU/ LVM Knot Tier Required: No Accompanied by: Self / Same As Patient Allergies sulfamethoxazole [From BACTRIM] Allergy (Intermediate, Verified 01/30/24 11:56) HIVES trimethoprim [From BACTRIM] Allergy (Intermediate, Verified 01/30/24 11:56) HIVES Medication List - Last Reconciled 01/30/24 by Dimitrios Vargas MD alfuzosin ER 10 mg PO DAILY atorvastatin 20 mg PO BEDTIME 90 days blood sugar diagnostic (FreeStyle Lite Strips) As directed cetirizine (All Day Allergy (cetirizine)) 10 mg PO DAILY PRN lisinopril 10 mg PO DAILY meclizine 25 mg PO BID PRN 20 days omeprazole magnesium (Prilosec OTC) 20 mg PO DAILY HPI Comments Details: 72-year-old man with a history of longstanding hypertension. He was on lisinopril 20/12.5 mg 1 a day. He was feeling lightheaded. This has been decreased to half a tablet a day. He has been watching his blood pressure at home. Usually blood pressure control. He states sometimes blood pressure goes of while in the doctor's office. Nine he suspects he might have white coat hypertension. Serum creatinine is 1.29. Last year creatinine was 1.4. There has been fluctuations in creatinine 1.4-1.2. He has been referred for evaluation renal insufficiency. History of subdural hematoma few years ago. This was secondary to trauma. 07/28/23: HCTZ was stopped. NO improvement in creatinine Baseline is 1.33 Home SBP is 147 and 148 Has some difficulty urinating Waiting to see Urology 10/30 Events noted USG shows cysts with possible complex cyst Waiting for CT scan Seen by Torres Ram for Polycyethemia 01/30/2024 Here for follow-up. Blood pressure is well controlled. Seen by Dr. Us and waiting for a CT scan of the chest. [facility] Medical History History of subdural hematoma (~2017) Diabetes (~2021) History of MRSA infection (~2014) Hx of vertigo Sleep apnea GERD (gastroesophageal reflux disease) Hypertension Hyperlipidemia Surgical History S/P scrotal varicocelectomy History of brain surgery History of endoscopy History of vasectomy History of varicose vein stripping History of appendectomy History of colonoscopy History of incision and drainage Family History Father Diabetes Hypertension Mother No problems noted. Social History Housing: House Are you a primary rn transitional care to a significant other at home: No Do you presently have visiting nurse or other home services: No Alcohol intake: current Alcohol intake frequency: a few times a week Patient Tobacco Use Status: Former Tobacco user Tobacco use type: Cigarette Years Smoked: 5 e-Cigarette/Vaping Use: Never Used Second Hand Smoke Exposure: No Advance Directives Date on File: 02/02/21 service: Yes Current occupational status: retired Cognitive needs: No Hearing needs: No Vision needs: No Review of Systems Const Denies fever(s) and Denies weight loss Card Denies chest pain Resp Denies cough and Denies hemoptysis GI Denies abdominal pain, Denies diarrhea and Denies nausea Musc Denies back pain Neuro Denies focal weakness Physical Exam Vital Signs: Last Vital Signs Pulse 82 01/30/24 11:54 BP 126/70 01/30/24 11:54 Pulse Ox 95 01/30/24 11:54 Oxygen Delivery Method Room Air 01/30/24 11:54 BMI result Body Mass Index 28.4 Const General: comfortable; No acute distress Orientation/consciousness: patient oriented x3 Eyes General: appearance normal, both eyes and all related structures Visual [place]: normal visual tinoco by confrontation Neck Neck: Yes supple and Yes no JVD Resp Effort & Inspection: normal respiratory effort and respiratory effort not decreased Auscultation: rhonchi Cardio Palpation: no palpable S3 and no palpable S4 Heart sounds: no rubs GI Inspection: Yes normal to inspection Palpation (GI): Soft to palpation Percussion: Yes normal to percussion Auscultation: normal bowel sounds General: Yes no CVA tenderness Back/Spine/Pelvis Back: no CVA tenderness Skin General skin exam: no petechiae and no purpura Neuro General: patient oriented x3 and no focal motor deficits Extrem General: No clubbing and No edema Results Reviewed Results Reviewed: November 2023: CT SCAN CT/CT abdomen pelvis w IV con IMPRESSION: Numerous bilateral renal cysts, most of which are simple and do not require follow-up. There are 3 nonsimple lesions in the kidneys as described above most likely but not definitely reflecting proteinaceous/hemorrhagic cysts. Characterization is limited because this CT does not include noncontrast imaging. Recommend follow-up CT abdomen without and with contrast in 6-12 months. Nephrology Results: 2 Hgb 17.8 g/dl (14.0-18.0) 12/08/23 WBC 6.8 X10*3/uL (4.8-10.8) 12/08/23 Plt Count 145 X10*3/uL (160-400) L 12/08/23 Sodium 143 mmol/L (135-145) 01/24/24 Potassium 4.3 mmol/L (3.3-5.1) 01/24/24 Chloride 106 mmol/L (96-108) 01/24/24 Carbon Dioxide 28 mmol/L (22-29) 01/24/24 BUN 28 mg/dL (9-16) H 01/24/24 Creatinine 1.47 mg/dL (0.5-1.4) H 01/24/24 Calcium 9.1 mg/dL (8.4-10.2) 01/24/24 Urine Creatinine 137.28 mg/dL 01/24/24 Assessment & Plan Assessment & Plan (1) CKD (chronic kidney disease): Code(s): N18.9 - Chronic kidney disease, unspecified Category: Medical (2) Microalbuminuria: Code(s): R80.9 - Proteinuria, unspecified Category: Medical (3) HTN (hypertension): Code(s): I10 - Essential (primary) hypertension Category: Medical (4) Polycythemia: Code(s): D75.1 - Secondary polycythemia Category: Medical (5) Restrictive lung disease: Code(s): J98.4 - Other disorders of lung Category: Medical (6) Bilateral renal cysts: Code(s): N28.1 - Cyst of kidney, acquired Category: Medical (7) Polycythemia: Code(s): D75.1 - Secondary polycythemia Category: Medical Plan 73 year old man with CKD in setting hypertension and CKD Keep Lisinopril 10 mg QD monitor his blood pressure at home. Renal function stable. Serum creatinine is marginally improved from 1.57 down to 1.46. No need for 24 hour ambulatory blood pressure monitoring yet The meantime stay on low-sodium diet / increase fluid intake. renal ultrasonogram shows multiple cyst with possible complex cyst CT scan revealed multiple simple cysts. But 3 cysts were indeterminate. Follow-up CT scan has been recommended in the next 6-12 months. We will defer to Urology. He has an appointment with Urology in the next month or so He has minimal proteinuria due to underlying hypertensive kidney disease. No significant hematuria and interstitial nephritis seems unlikely at this point. If creatinine continues to increase, would DC lisinopril /HCT and try Amlodipine Polycythemia - probably due to Restrictive lung diz. However, wiht the renal cyst, excessive erythropoeitin production is a possibility Follow with Oncology Orders: Orders Complete Blood Count Auto Diff 4 Months N18.9 - Chronic kidney disease, unspecified, N28.1 - Cyst of kidney, acquired Comprehensive Met. Panel 4 Months N18.9 - Chronic kidney disease, unspecified, N28.1 - Cyst of kidney, acquired Coding Level of Care Code Est Pt Level 4 (17117) Diagnoses CKD (chronic kidney disease) N18.9 Microalbuminuria R80.9 HTN (hypertension) I10 Polycythemia D75.1 Restrictive lung disease J98.4 Bilateral renal cysts N28.1
== END 2024-01-30 12:08 | disposition home or self-care (01) ==
PROVIDERS: PCP Nurse Practitioner Family; Visit Provider Internal Medicine Hypertension Specialist
DX: I12.9 Hypertensive chronic kidney disease with stage 1 through stage 4 chronic kidney disease, or unspecified chronic kidney disease (principal); N18.9 Chronic kidney disease, unspecified; R80.9 Proteinuria, unspecified; D75.1 Secondary polycythemia; J98.4 Other disorders of lung; N28.1 Cyst of kidney, acquired
CPT/HCPCS: 99214

== ENCOUNTER → 2024-01-30 11:43 | Outpatient (BNVA) | payer MEDICARE, OTHER, SELFPAY | PROVIDERS: PCP Nurse Practitioner Family; Visit Provider Internal Medicine Hypertension Specialist | DX: I12.9 Hypertensive chronic kidney disease with stage 1 through stage 4 chronic kidney disease, or unspecified chronic kidney disease (principal); N18.9 Chronic kidney disease, unspecified; R80.9 Proteinuria, unspecified; N28.1 Cyst of kidney, acquired; D75.1 Secondary polycythemia; J98.4 Other disorders of lung; Z79.899 Other long term (current) drug therapy | CPT/HCPCS: 99212 ==

== ENCOUNTER 2024-02-15 13:00 | Outpatient (REF) | payer MEDICARE, OTHER, SELFPAY | END 2024-02-15 13:01 | disposition home or self-care (01) | LOC: HO.BBR 13:00 | PROVIDERS: Visit Provider Internal Medicine Medical Oncology | DX: D75.1 Secondary polycythemia (principal) | CPT/HCPCS: 85014; 85018; 99195 ==

== ENCOUNTER 2024-03-01 07:23 | Outpatient (REF) | payer MEDICARE, OTHER, SELFPAY ==
--- NOTE | ~2024-03-01 | CT_ITS ---
EXAMINATION: CT CHEST WITHOUT CONTRAST CLINICAL INFORMATION: Other nonspecific abnormal finding lung field. No further information given. COMPARISON: CT chest 02/04/2023, 01/29/2022. TECHNIQUE: Multidetector volumetric CT imaging of the chest was done. Axial MIP volume rendering provided. Sagittal and coronal reformatted images were obtained. This CT examination was performed using dose optimization techniques as appropriate, variously including the following: *Automated exposure control *Adjustment of mA and/or kV according to patient size (this includes techniques or standardized protocols for targeted exams where dose is matched to indication/reason for exam; i.e. extremities or head) *Use of iterative reconstruction technique DLP: 196 mGy-cm Please note, due to [facility] contractual, systems, and staffing issues, an [facility] radiologist was not available for review and dictation of this case until 04/10/2024. FINDINGS: -Mild respiratory motion artifact is present, limiting detection of subtle findings. PULMONARY NODULES: -A few scattered 2 to 3 mm pulmonary nodules are stable, the largest in the left upper lobe measuring 3 mm (series 5, image 122). -No new or enlarging nodules. LUNGS: -Stable mild lingular and right middle lobe scarring. -Stable scarring in the right lower lung medially abutting spinal osteophytes with mild traction bronchiolectasis. -Very mild bronchiectasis lower lobes without evidence of bronchial wall thickening. -No consolidations or abnormal groundglass opacities. -There is no evidence of interstitial lung disease. MEDIASTINUM: -Normal thyroid gland. -Aorta is normal in course and caliber. There are minimal aortic calcifications. -Main pulmonary arteries are normal in size. -There is no abnormal lymphadenopathy present. -Esophagus is mildly patulous throughout its course. -Heart size is normal. There is no pericardial effusion. -Stable subcentimeter small epicardial lymph node versus loculated pericardial fluid abutting the superior right atrium. These are benign. CORONARY ARTERY CALCIFICATION: Moderate three-vessel coronary calcification. PLEURA: There is no pleural effusion. No pleural mass or thickening. AXILLA: No lymphadenopathy. UPPER ABDOMEN: -1.9 cm right hepatic cyst. Tiny segment 2 hepatic cyst. -Partially imaged superior right renal cyst. OSSEOUS STRUCTURES: -No suspicious lytic or blastic bone lesions. -There are loose bodies in the right shoulder joint in the subcoracoid recess. There are associated significant degenerative changes in both shoulder joints. -There are mild to moderate degenerative changes throughout the spine. CT/CT chest wo IV con IMPRESSION: 1. Stable small pulmonary nodules measuring up to 3 mm left upper lobe. No new or enlarging nodules. 2. There is no evidence of interstitial lung disease. Mild foci of scarring right middle lobe, lingula, and medial right lower lobe abutting the spine. 3. No active lung disease. 4. Patulous esophagus. 5. Additional ancillary findings as discussed in the body of the report. Fleischner guidelines were followed. Electronically signed by: Harley Thompson MD 04/10/2024 01:56 PM EDT
== END 2024-03-01 07:24 | disposition home or self-care (01) ==
LOC: HO.CT 07:23
PROVIDERS: PCP Nurse Practitioner Family; Visit Provider Internal Medicine Pulmonary Disease
DX: R91.8 Other nonspecific abnormal finding of lung field (principal)
CPT/HCPCS: 71250

== ENCOUNTER → 2024-03-01 07:25 | Outpatient (BNV) | payer MEDICARE, OTHER, SELFPAY | PROVIDERS: PCP Nurse Practitioner Family; Visit Provider Radiology Diagnostic Radiology | DX: R91.8 Other nonspecific abnormal finding of lung field (principal) | CPT/HCPCS: 71250 ==

== ENCOUNTER 2024-03-09 08:23 | Outpatient (AMB) | payer MEDICARE, OTHER, SELFPAY ==
--- NOTE | 2024-03-09 08:42 | A.OFFVIS_ITS ---
Intake Visit Reasons: 6m follow up Intake Note: Harjit is a 73 year old male who presents to the office today for a 6 month follow up. Allergies sulfamethoxazole [From BACTRIM] Allergy (Intermediate, Verified 03/09/24 08:45) HIVES trimethoprim [From BACTRIM] Allergy (Intermediate, Verified 03/09/24 08:45) HIVES Medication List - Last Reconciled 03/09/24 by Chaparro Maharaj MD alfuzosin ER 10 mg PO DAILY atorvastatin 20 mg PO BEDTIME 90 days blood sugar diagnostic (FreeStyle Lite Strips) As directed cetirizine (All Day Allergy (cetirizine)) 10 mg PO DAILY PRN lisinopril 10 mg PO DAILY meclizine 25 mg PO BID PRN 20 days omeprazole magnesium (Prilosec OTC) 20 mg PO DAILY solifenacin (Vesicare) 10 mg PO DAILY HPI Comments Details: Harjit is a 73 year old male who is here for evaluation for nocturia. Past Medical history -- History of subdural hematoma (~2017) Diabetes (~2021) history of MRSA infection (~2014) Hx of vertigo Sleep apnea GERD (gastroesophageal reflux disease) Hypertension Hyperlipidemia 03/09/24--follow-up visit for BPH with lower urinary tract symptoms frequency. Prescribed alfuzosin 10 mg daily. Bilateral renal cysts. Harjit is followed by nephrology recently seen hydrochlorothiazide discontinued. He complains of worsening urinary urgency. We will add VESIcare 10 mg daily. PSA screening. Review of chart: 09/09/23--Here for FU, Harjit was initially evaluated on 08/03/2023, The patient complains of daytime urinary frequency every hour, states feels like he would leak if he doesn't make it to the bathroom in time. nocturia x2, denies hematuria, denies dysuria, feeling of incomplete bladder emptying. He was started on alfuzosin. He states that he has a stronger urinary flow. Less urinary frequency during the daytime. He drinks 2 cups of coffee 630 and 10:00. I want him to cut back to only 1 cup of coffee. The patient states he was seen yesterday by Hematology or polycythemia. I have reviewed chart, PSA 1.52- 08/2022. I reviewed renal ultrasound 08/03/2023 numerous bilateral renal cysts PFSH Medical History History of subdural hematoma (~2017) Diabetes (~2021) History of MRSA infection (~2014) Hx of vertigo Sleep apnea GERD (gastroesophageal reflux disease) Hypertension Hyperlipidemia Surgical History S/P scrotal varicocelectomy History of brain surgery History of endoscopy History of vasectomy History of varicose vein stripping History of appendectomy History of colonoscopy History of incision and drainage Family History Father Diabetes Hypertension Mother No problems noted. Social History Housing: House Are you a primary career development coordinator/teacher to a significant other at home: No Do you presently have visiting nurse or other home services: No Alcohol intake: current Alcohol intake frequency: a few times a week Patient Tobacco Use Status: Former Tobacco user Tobacco use type: Cigarette Years Smoked: 5 e-Cigarette/Vaping Use: Never Used Second Hand Smoke Exposure: No Advance Directives Date on File: 02/02/21 service: Yes Current occupational status: retired Cognitive needs: No Hearing needs: No Vision needs: No Review of Systems Const All systems reviewed & are unremarkable except as noted in HPI and below Reports no additional complaints Eyes Reports no additional complaints ENT Reports no additional complaints Card Reports no additional complaints Resp Reports no additional complaints GI Reports no additional complaints Reports as per HPI Musc Reports no additional complaints Skin/Breast Reports system reviewed and no additional complaints, except as documented Neuro Reports no additional complaints Psych Reports no additional complaints Endo Reports no additional complaints Bandar/Lymph Reports no additional complaints Aller/Immun Reports no additional complaints Office Procedures Post Void Residual Post Residual Void Post Void Residual (PVR): 0 47501-Ftip Void Residual by ultrasound Results AMB Urinalysis, Automated UA Leukoctes 0 Joshua/uL Last Edit by Radha Hayes CMA on 03/09/24 08:55 UA Nitrite Negative Last Edit by Radha Hayes CMA on 03/09/24 08:55 UA Urobilinogen 0.2 mg/dL Last Edit by Radha Hayes CMA on 03/09/24 08:55 UA Protein 0 mg/dL Last Edit by Radha Hayes CMA on 03/09/24 08:55 UA pH 6.0 Last Edit by Radha Hayes CMA on 03/09/24 08:55 UA Blood 0 Jared/uL Last Edit by Radha Hayes CMA on 03/09/24 08:55 UA Specific [place] 1.015 Last Edit by Radha Hayes CMA on 03/09/24 08:55 UA Ketone Negative Last Edit by Radha Hayes CMA on 03/09/24 08:55 UA Bilirubin 0 mg/dL Last Edit by Radha Hayes CMA on 03/09/24 08:55 UA Glucose 0 mg/dL Last Edit by Radha Hayes CMA on 03/09/24 08:55 Assessment & Plan Assessment & Plan (1) Screening PSA (prostate specific antigen): Code(s): Z12.5 - Encounter for screening for malignant neoplasm of prostate Category: Medical (2) BPH loc w urin obs/LUTS: Code(s): N40.1 - Benign prostatic hyperplasia with lower urinary tract symptoms Category: Medical (3) Urinary frequency: Code(s): R35.0 - Frequency of micturition Category: Medical (4) Diabetes: Onset Date: ~2021 Comment: (DM2 - dx 04/2022) Code(s): E11.9 - Type 2 diabetes mellitus without complications Category: Medical (5) CKD (chronic kidney disease): Code(s): N18.9 - Chronic kidney disease, unspecified Category: Medical (6) Bilateral renal cysts: Code(s): N28.1 - Cyst of kidney, acquired Category: Medical Plan continue Alfuzosin 10 mg daily VESIcare 10 mg daily Bilateral renal cysts the patient is followed by [facility]. Follow-up in 6 months Orders: Orders AMB Post Void Residual by ultrasound Today N39.43 - Post-void dribbling AMB Urinalysis Automated Today Z13.9 - Encounter for screening, unspecified PSA,Total (Free>4and<10) 5 Months Z12.5 - Encounter for screening for malignant neoplasm of prostate Medications: New solifenacin (Vesicare) 10 mg PO DAILY 90 tabs 2RF bladder spasms, urgency Refilled alfuzosin ER 10 mg PO DAILY 90 tabs 3RF Patient Instructions: The patient had an opportunity to ask questions regarding treatment plan. The patient expressed understanding and agreement with the above treatment plan. The patient is aware they should contact our office by phone for worsening of their current condition or the appearance of new symptoms. Compliance is encouraged with any medications and followup testing that is ordered. It is a privilege to be allowed the opportunity to participate in the urologic care of your patient. If you have any questions or concerns regarding treatment for the above conditions please do not hesitate to contact me. The office telephone contact is [phone]. This note is constructed in part using voice recognition software. While every effort has been made to ensure accuracy supervisor kennel errors may have been included. Yours sincerely, Chaparro Maharaj MD Coding Level of Care Code Est Pt Level 4 (93736) Diagnoses Screening PSA (prostate specific antigen) Z12.5 BPH loc w urin obs/LUTS N40.1 Urinary frequency R35.0 Diabetes E11.9 CKD (chronic kidney disease) N18.9 Bilateral renal cysts N28.1 CPT Codes Post Residual Void - PVR CPT Code: 25313-Ymkh Void Residual by ultrasound ([id number])
== END 2024-03-09 09:03 | disposition home or self-care (01) ==
PROVIDERS: PCP Nurse Practitioner Family; Visit Provider Urology
DX: Z12.5 Encounter for screening for malignant neoplasm of prostate (principal); N40.1 Benign prostatic hyperplasia with lower urinary tract symptoms; R35.0 Frequency of micturition; E11.9 Type 2 diabetes mellitus without complications; N18.9 Chronic kidney disease, unspecified; N28.1 Cyst of kidney, acquired; Z13.9 Encounter for screening, unspecified
CPT/HCPCS: 99214

== ENCOUNTER → 2024-03-09 08:23 | Outpatient (BNVA) | payer MEDICARE, OTHER, SELFPAY | PROVIDERS: PCP Nurse Practitioner Family; Visit Provider Urology | DX: Z12.5 Encounter for screening for malignant neoplasm of prostate (principal); N40.1 Benign prostatic hyperplasia with lower urinary tract symptoms; R35.0 Frequency of micturition; E11.9 Type 2 diabetes mellitus without complications; N28.1 Cyst of kidney, acquired; N18.9 Chronic kidney disease, unspecified | CPT/HCPCS: 51798; 81003; 99212 ==

== ENCOUNTER 2024-03-16 07:17 | Outpatient (REF) | payer MEDICARE, OTHER, SELFPAY ==
[2024-03-16 10:00] LABS: MANUAL DIFF FLAG NO
[2024-03-16 10:05] LABS: Basophils Percent Auto 0.6 % (0-2); Eosinophils Absolute Auto 0.1 X10*3/uL (0.0-0.4); Eosinophils Percent Auto 1.8 % (0-4); Hematocrit 50.5 % (42.0-52.0); Hemoglobin 17.6 g/dl (14.0-18.0); Imm Gran Abs Auto 0.02 X10*3/uL (0.00-0.03); Imm Gran Pct Auto 0.3 % (0.0-0.4); Lymphocytes Absolute Auto 1.2 X10*3/uL (1.2-4.9); Lymphocytes Percent Auto 18.1 % (20-40); Mean Corpuscular HGB Conc 34.9 g/dl (31.0-36.0); Mean Corpuscular Hemoglobin 30.8 pg (27.0-33.0); Mean Corpuscular Volume 88.4 fL (80.0-98.0); Mean Platelet Volume 9.8 fL (9.4-12.4); Monocytes Absolute Auto 0.5 X10*3/uL (0.1-1.2); Monocytes Percent Auto 7.7 % (2-11); Neutrophils Absolute Auto 4.8 x10*3/uL (2.0-8.3); Neutrophils Percent Auto 71.5 % (45-73); Platelet Count 169 X10*3/uL (160-400); Red Blood Count 5.71 X10*6/uL (4.60-5.80); Red Cell Distribution Width 12.3 % (11.0-16.0); White Blood Count 6.8 X10*3/uL (4.8-10.8)
[2024-03-16 10:09] LABS: Appearance Urine Clear; Color Urine Yellow; Glucose Urine UA Negative (Negative); Leukocyte Esterase Urine Negative (Negative); Nitrite Urine Negative (Negative); Specific Gravity - Urine 1.015 (1.005-1.025); Urine Blood Negative (Negative); Urine Ketones Negative (Negative); Urine Protein Negative (Neg-Trace)
[2024-03-16 10:38] LABS: Alanine Aminotransferase 17 U/L (0-40); Albumin Level 4.1 g/dL (3.5-5.0); Alkaline Phosphatase 72 U/L (39-117); Anion Gap 13 (12-20); Aspartate Amino Transferase 16 U/L (5-37); Bilirubin Total 0.6 mg/dL (0.0-1.0); Blood Urea Nitrogen 30 mg/dL (9-16); Calcium 9.2 mg/dL (8.4-10.2); Carbon Dioxide 26 mmol/L (22-29); Chloride 107 mmol/L (96-108); Cholesterol 114 mg/dL (<200); Estimated Glomerular Filt Rate 50; Glucose Fasting 110 mg/dL (60-99); HDL Cholesterol 38 mg/dL (>40); LDL Cholesterol Calculated 63 mg/dL (<100); Potassium 4.1 mmol/L (3.3-5.1); Sodium 142 mmol/L (135-145); Total Protein 6.3 g/dL (6.5-8.0); Triglycerides 69 mg/dL (<150)
[2024-03-16 10:44] LABS: Prostate Specific Antigen Scr 1.18 ng/mL (<0.05-4.0)
[2024-03-16 10:52] LABS: TSH reflex Free T4 1.01 uIU/mL (0.32-4.0)
== END 2024-03-16 07:18 | disposition home or self-care (01) ==
LOC: HO.HMGCLDS 07:17
PROVIDERS: PCP Nurse Practitioner Family; Visit Provider Nurse Practitioner Family
DX: E11.9 Type 2 diabetes mellitus without complications (principal); Z12.5 Encounter for screening for malignant neoplasm of prostate
CPT/HCPCS: 36415; 80053; 80061; 81003; 84153; 84443; 85025

== ENCOUNTER 2024-03-27 07:52 | Outpatient (AMB) | payer MEDICARE, OTHER, SELFPAY ==
[2024-03-27 07:55] VITALS: BP 138/70; PULSE 72; O2SAT 97; BMI 28.3
--- NOTE | 2024-03-27 07:55 | A.OFFPC_ITS ---
Vital Signs 03/27/24 07:55 Height 5 ft 8 in Weight 186 lb BMI 28.3 BP 138/70 Blood Pressure Location Rt brachial Position Sitting Pulse 72 Pulse Source Pulse Oximeter Pulse Oximetry (%) 97 Oxygen Delivery Method Room Air Intake Visit Reasons: 4 month follow up Intake Note: pt is here for 4 month follow up Athletic Scout Required: No Accompanied by: Self / Same As Patient Allergies sulfamethoxazole [From BACTRIM] Allergy (Intermediate, Verified 03/27/24 07:56) HIVES trimethoprim [From BACTRIM] Allergy (Intermediate, Verified 03/27/24 07:56) HIVES Tobacco use date assessed: 11/28/23 Fall risk assessment: No Falls in past year Last assessed Fall Risk: 03/27/24 Dental Screening Dental Screen Date: 11/28/23 HPI 4 month follow up HPI Details diabetes: pt is on a statin and EUNICE. Pt understands the s/s of hypoglycemia and how to correct. Pt denies any polydipsia or neuropathy. eye exam is up to date. A1c is 5.3 today. Pt reports feeling much better, overall. HTN: stable, pt brought in values from home, looking great. Pt denies any CP, SOB, SYLVESTER, blurred vision. [facility] Medical History History of subdural hematoma (~2017) Diabetes (~2021) History of MRSA infection (~2014) Hx of vertigo Sleep apnea GERD (gastroesophageal reflux disease) Hypertension Hyperlipidemia Surgical History S/P scrotal varicocelectomy History of brain surgery History of endoscopy History of vasectomy History of varicose vein stripping History of appendectomy History of colonoscopy History of incision and drainage Family History Father Diabetes Hypertension Mother No problems noted. Social History Housing: House Are you a primary health care recruiter to a significant other at home: No Do you presently have visiting nurse or other home services: No Alcohol intake: current Alcohol intake frequency: a few times a week Patient Tobacco Use Status: Former Tobacco user Tobacco use type: Cigarette Years Smoked: 5 e-Cigarette/Vaping Use: Never Used Second Hand Smoke Exposure: No Advance Directives Date on File: 02/02/21 service: Yes Current occupational status: retired Cognitive needs: No Hearing needs: No Vision needs: No Questionnaire PHQ-9 Over the last 2 weeks, how often have you been bothered by any of the following problems? 1. Little interest or pleasure in doing things: not at all 2. Feeling down, depressed, or hopeless: not at all 3. Trouble falling or staying asleep, or sleeping too much: not at all 4. Feeling tired or having little energy: not at all 5. Poor appetite or overeating: not at all 6. Feeling bad about yourself - or that you are a failure or have let yourself or your family down: not at all 7. Trouble concentrating on things, such as reading the newspaper or watching television: not at all 8. Moving or speaking so slowly that other people could have noticed. Or the opposite - being so fidgety or restless that you have been moving around a lot more than usual: not at all 9. Thoughts that you would be better off or of hurting yourself in some way: not at all Total score: 0 Depression Screening Interpretation: Negative Depression Screening Done: Yes 64962 - PHQ-9 Billing: Yes Source: Developed by Drs. Jeison Sampson, Kenyatta Brock, Marc Medrano and colleagues, with an educational ele from [employer]. Thrive Questionnaire Date Thrive assessed: 03/27/24 I am a: Patient What is your living situation today?: I have a steady place to live Within the past 12 months, did the food you bought not last and you didn't have the money to get more?: Sometimes True Within the past 12 months, did you worry whether your food would run out before you got money to buy more?: Never true Do you have trouble paying for medicines?: No Do you have trouble getting transportation to medical appointments?: No Do you have trouble paying your heating and electricity bill?: No Do you have trouble taking care of your child, family member or friend?: No Do you have trouble with day-to-day activities such as bathing, preparing meals, shopping, managing finances, etc.?: No Are you currently unemployed and looking for a job?: No Are you interested in more education?: No Please select the resources that you would like help with: None Currently or been in a relationship where the following occur: No concerns reported THRIVE Score: 1 AUDIT C Alcohol Use Questionnaire (AUDIT-C) 1. How often do you have a drink containing alcohol?: Monthly or less 2. How many drinks containing alcohol do you have on a typical day when you are drinking?: 1 or 2 3. How often do you have six or more drinks on one occasion?: Never Total Score: 1 Score Reviewed/Action Taken: Yes JESUS-7 AMB Questionnaire JESUS-7 Date JESUS - 7 assessed: 03/27/24 Feeling nervous, anxious, or on edge: 0 = Not at all Not being able to stop or control worryin = Not at all Worrying too much about different things: 0 = Not at all Trouble relaxin = Not at all Being so restless that it is hard to sit still: 0 = Not at all Becoming easily annoyed or irritable: 0 = Not at all Feeling afraid as if something awful might happen: 0 = Not at all Total JESUS-7 score (0-4 normal; 5-9 mild; 10-14 moderate; 15-21 severe): 0 Source: Developed by Drs. Jeison Sampson, Kenyatta Brock, Marc Medrano and colleagues, with an educational ele from [employer]. JESUS-7 Assessment Billing JESUS-7 Assessment Tool: JESUS-7 Assessment 51069 Physical exam (Primary Care) Vital Signs: Last Vital Signs Pulse 72 03/27/24 07:55 BP 138/70 03/27/24 07:55 Pulse Ox 97 03/27/24 07:55 Oxygen Delivery Method Room Air 03/27/24 07:55 BMI result Body Mass Index 28.3 Tobacco/Smoking Status: Tobacco use Status Tobacco use date assessed 11/28/23 03/27/24 07:59 Patient Tobacco Use Status Former Tobacco user 03/27/24 07:59 Tobacco use type Cigarette 03/27/24 07:59 e-Cigarette/Vaping Use Never Used 03/27/24 07:59 PHQ-9: PHQ-9 Score PHQ-9: Total score 0 08/20/24 08:06 Depression Screening Interpretation: Negative Thrive Assessment: Date of Thrive Assessment Date Thrive assessed 03/27/24 03/27/24 07:59 Currently or been in a relationship where the following occur: No concerns reported Resp Auscultation: clear to auscultation bilaterally Cardio Rate: regular rate Rhythm: regular rhythm Heart sounds: S1 normal heart sound present and S2 normal heart sound present Skin Other: varicose veins noted to BLE. Neuro Motor exam (neuro): 5/5 motor strength present throughout Extrem Other: + sensation with use of monofilament, intact bilat Psych Appearance: grossly normal Mental Status: mental status grossly normal Speech and movement: Normal speech and movement present Thought process: Normal thought process present Thought content: Normal thought content present Results AMB Hemoglobin A1c AMB Hemoglobin A1c 5.3 % Last Edit by Anabella Blas CMA on 03/27/24 08:10 Assessment and Plan Assessment & Plan (1) Diabetes: Onset Date: ~2021 Comment: (DM2 - dx 04/2022) Code(s): E11.9 - Type 2 diabetes mellitus without complications Plan: A1c is well controlled, he is feeling well, labs are stable. Orders: Orders AMB Hemoglobin A1c Today E11.9 - Type 2 diabetes mellitus without complications Coding Level of Care Code Est Pt Level 3 (41221) Diagnoses Diabetes E11.9 Additional Codes JESUS-7 Assessment Billing - JESUS-7 Assessment Tool: JESUS-7 Assessment 91403 ([id number])
== END 2024-03-27 10:11 | disposition home or self-care (01) ==
PROVIDERS: PCP Nurse Practitioner Family; Visit Provider Nurse Practitioner Family
DX: E11.9 Type 2 diabetes mellitus without complications (principal)
CPT/HCPCS: 83036; 99213

== ENCOUNTER 2024-04-19 09:07 | Outpatient (AMB) | payer MEDICARE, OTHER, SELFPAY ==
--- NOTE | 2024-04-19 09:09 | MHC.OFFWIV ---
Intake Vital Signs 04/19/24 09:10 Height 5 ft 8 in Weight 186 lb BMI 28.3 BP 132/80 Blood Pressure Location Rt brachial Position Sitting Pulse 64 Pulse Source Pulse Oximeter Pulse Oximetry (%) 98 Oxygen Delivery Method Room Air Intake Visit Reasons: EP-rt knee pain Intake Note: Patient here for severe right knee pain, states he felt something click and since then pain has been severe. pt has a hx of arthritis in both knees. Patient Tobacco Use Status: Former Tobacco user Allergies sulfamethoxazole [From BACTRIM] Allergy (Intermediate, Verified 04/19/24 09:12) HIVES trimethoprim [From BACTRIM] Allergy (Intermediate, Verified 04/19/24 09:12) HIVES Do you need a note to return to daycare/school/sports/work: No HPI HPI Comments History of Present Illness Details 73 y/o male patient who presents to the walk in clinic with c/o right knee pain. Pt has chronic bilateral knee pains for years. He is asking if he can get Cortisone injections on his right knee today. He self scheduled at [facility] with Orthopedic surgeon 04/25/24 for this issue. [facility] Medical History History of subdural hematoma (~2017) Diabetes (~2021) History of MRSA infection (~2014) Hx of vertigo Sleep apnea GERD (gastroesophageal reflux disease) Hypertension Hyperlipidemia Surgical History S/P scrotal varicocelectomy History of brain surgery History of endoscopy History of vasectomy History of varicose vein stripping History of appendectomy History of colonoscopy History of incision and drainage Family History Father Diabetes Hypertension Mother No problems noted. Social History Housing: House Are you a primary transition of care specialist to a significant other at home: No Do you presently have visiting nurse or other home services: No Alcohol intake: current Alcohol intake frequency: a few times a week Patient Tobacco Use Status: Former Tobacco user Tobacco use type: Cigarette Years Smoked: 5 e-Cigarette/Vaping Use: Never Used Second Hand Smoke Exposure: No Advance Directives Date on File: 02/02/21 service: Yes Current occupational status: retired Cognitive needs: No Hearing needs: No Vision needs: No Physical Exam Vital Signs: Last Vital Signs Pulse 64 04/19/24 09:10 BP 132/80 04/19/24 09:10 Pulse Ox 98 04/19/24 09:10 Oxygen Delivery Method Room Air 04/19/24 09:10 BMI result Body Mass Index 28.3 Const General: cooperative and no acute distress Orientation/consciousness: patient oriented x3 Neuro General: patient oriented x3, gait normal and moves all extremities Extrem Right lower extremity: knee Details: normal to inspection, tenderness Location: of the patella and normal ROM; no swelling, no ecchymosis and no crepitus Left lower extremity: normal to inspection and knee Details: normal to inspection, tenderness and normal ROM; no swelling, no ecchymosis and no crepitus Psych Speech and movement: Normal speech and movement present Assessment & Plan Assessment & Plan (1) Right knee pain: Code(s): M25.561 - Pain in right knee Qualifiers: Chronicity: chronic Qualified Code(s): M25.561 - Pain in right knee; G89.29 - Other chronic pain Plan: Informed Patient that we do not offer Steroid injections in the walk in clinic, and he will need to be seen by Pain management or Orthopedic. Information for [facility] Walk in clinic given to patient today. Meanwhile he is wearing Bilateral Knee Braces. Coding Level of Care Code Est Pt Level 3 (58517) Diagnoses Chronic pain of right knee M25.561; G89.29 Chronicity: chronic Time Spent (min) 15
[2024-04-19 09:10] VITALS: BP 132/80; PULSE 64; O2SAT 98; BMI 28.3
== END 2024-04-19 09:42 | disposition home or self-care (01) ==
PROVIDERS: PCP Nurse Practitioner Family; Visit Provider Nurse Practitioner Family
DX: M25.561 Pain in right knee (principal); G89.29 Other chronic pain
CPT/HCPCS: 99213

== ENCOUNTER 2024-06-26 07:23 | Outpatient (REF) | payer MEDICARE, OTHER, SELFPAY ==
[2024-06-26 10:07] LABS: MANUAL DIFF FLAG NO
[2024-06-26 10:22] LABS: Basophils Percent Auto 0.7 % (0-2); Eosinophils Absolute Auto 0.3 X10*3/uL (0.0-0.4); Eosinophils Percent Auto 5.5 % (0-4); Hemoglobin 14.9 g/dl (14.0-18.0); Imm Gran Abs Auto 0.01 X10*3/uL (0.00-0.03); Imm Gran Pct Auto 0.2 % (0.0-0.4); Lymphocytes Absolute Auto 1.3 X10*3/uL (1.2-4.9); Lymphocytes Percent Auto 24.4 % (20-40); Mean Corpuscular HGB Conc 33.1 g/dl (31.0-36.0); Mean Corpuscular Hemoglobin 29.9 pg (27.0-33.0); Mean Corpuscular Volume 90.2 fL (80.0-98.0); Mean Platelet Volume 9.3 fL (9.4-12.4); Monocytes Absolute Auto 0.5 X10*3/uL (0.1-1.2); Monocytes Percent Auto 8.9 % (2-11); Neutrophils Absolute Auto 3.3 x10*3/uL (2.0-8.3); Neutrophils Percent Auto 60.3 % (45-73); Platelet Count 197 X10*3/uL (160-400); Red Blood Count 4.99 X10*6/uL (4.60-5.80); Red Cell Distribution Width 13.1 % (11.0-16.0); White Blood Count 5.5 X10*3/uL (4.8-10.8)
[2024-06-26 10:55] LABS: Alanine Aminotransferase 11 U/L (0-40); Alkaline Phosphatase 78 U/L (39-117); Anion Gap 9 (12-20); Aspartate Amino Transferase 17 U/L (5-37); Bilirubin Total 0.8 mg/dL (0.0-1.0); Blood Urea Nitrogen 21 mg/dL (9-16); Calcium 9.6 mg/dL (8.4-10.2); Carbon Dioxide 30 mmol/L (22-29); Chloride 106 mmol/L (96-108); Estimated Glomerular Filt Rate 54; Glucose Random 106 mg/dL (60-115); Sodium 141 mmol/L (135-145); Total Protein 6.4 g/dL (6.5-8.0)
== END 2024-06-26 07:24 | disposition home or self-care (01) ==
LOC: HO.HMGCLDS 07:23
PROVIDERS: PCP Nurse Practitioner Family; Visit Provider Internal Medicine Hypertension Specialist
DX: N28.1 Cyst of kidney, acquired (principal); N18.9 Chronic kidney disease, unspecified
CPT/HCPCS: 36415; 80053; 85025

== ENCOUNTER 2024-07-03 11:51 | Outpatient (AMB) | payer MEDICARE, OTHER, SELFPAY ==
[2024-07-03 11:53] VITALS: BP 110/60; PULSE 92; O2SAT 96; BMI 28.1
--- NOTE | 2024-07-03 11:53 | HO.NEPHOV ---
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 Accompanied by: Self / Same As Patient Allergies sulfamethoxazole [From BACTRIM] Allergy (Intermediate, Verified 07/03/24 11:55) HIVES trimethoprim [From BACTRIM] Allergy (Intermediate, Verified 07/03/24 11:55) HIVES Medication List - Last Reconciled 07/03/24 by Dimitrios Vargas MD alfuzosin ER 10 mg PO DAILY atorvastatin 20 mg PO BEDTIME 90 days blood sugar diagnostic (FreeStyle Lite Strips) As directed cetirizine (All Day Allergy (cetirizine)) 10 mg PO DAILY PRN lisinopril 10 mg PO DAILY meclizine 25 mg PO BID PRN 20 days omeprazole magnesium (Prilosec OTC) 20 mg PO DAILY HPI Comments Details: 72-year-old man with a history of longstanding hypertension. He was on lisinopril 20/12.5 mg 1 a day. He was feeling lightheaded. This has been decreased to half a tablet a day. He has been watching his blood pressure at home. Usually blood pressure control. He states sometimes blood pressure goes of while in the doctor's office. Nine he suspects he might have white coat hypertension. Serum creatinine is 1.29. Last year creatinine was 1.4. There has been fluctuations in creatinine 1.4-1.2. He has been referred for evaluation renal insufficiency. History of subdural hematoma few years ago. This was secondary to trauma. 07/28/23: HCTZ was stopped. NO improvement in creatinine Baseline is 1.33 Home SBP is 147 and 148 Has some difficulty urinating Waiting to see Urology 10/30 Events noted USG shows cysts with possible complex cyst Waiting for CT scan Seen by Torres Ram for Polycyethemia 01/30/2024 Here for follow-up. Blood pressure is well controlled. Seen by Dr. Us and waiting for a CT scan of the chest. 07/03/24 s/p Knee replacement -right 5 weeks ago Seen by [facility] Medical History History of subdural hematoma (~2017) Diabetes (~2021) History of MRSA infection (~2014) Hx of vertigo Sleep apnea GERD (gastroesophageal reflux disease) Hypertension Hyperlipidemia Surgical History History of total right knee replacement S/P scrotal varicocelectomy History of brain surgery History of endoscopy History of vasectomy History of varicose vein stripping History of appendectomy History of colonoscopy History of incision and drainage Family History Father Diabetes Hypertension Mother No problems noted. Social History Housing: House Are you a primary healthcare sales representative to a significant other at home: No Do you presently have visiting nurse or other home services: No Alcohol intake: current Alcohol intake frequency: a few times a week Patient Tobacco Use Status: Former Tobacco user Tobacco use type: Cigarette Years Smoked: 5 e-Cigarette/Vaping Use: Never Used Second Hand Smoke Exposure: No Advance Directives Date on File: 02/02/21 service: Yes Current occupational status: retired Cognitive needs: No Hearing needs: No Vision needs: No Physical Exam Vital Signs: Last Vital Signs Pulse 92 07/03/24 11:53 BP 110/60 07/03/24 11:53 Pulse Ox 96 07/03/24 11:53 Oxygen Delivery Method Room Air 07/03/24 11:53 BMI result Body Mass Index 28.1 Results Reviewed Nephrology Results: Hgb 14.9 g/dl (14.0-18.0) 06/26/24 WBC 5.5 X10*3/uL (4.8-10.8) 06/26/24 Plt Count 197 X10*3/uL (160-400) 06/26/24 Sodium 141 mmol/L (135-145) 06/26/24 Potassium 4.0 mmol/L (3.3-5.1) 06/26/24 Chloride 106 mmol/L (96-108) 06/26/24 Carbon Dioxide 30 mmol/L (22-29) H 06/26/24 BUN 21 mg/dL (9-16) H 06/26/24 Creatinine 1.31 mg/dL (0.5-1.4) 06/26/24 Calcium 9.6 mg/dL (8.4-10.2) 06/26/24 Urine Protein Negative mg/dL (Neg-Trace) 03/16/24 Assessment & Plan Assessment & Plan (1) CKD (chronic kidney disease): Code(s): N18.9 - Chronic kidney disease, unspecified Category: Medical (2) Microalbuminuria: Code(s): R80.9 - Proteinuria, unspecified Category: Medical (3) HTN (hypertension): Code(s): I10 - Essential (primary) hypertension Category: Medical (4) Polycythemia: Code(s): D75.1 - Secondary polycythemia Category: Medical (5) Restrictive lung disease: Code(s): J98.4 - Other disorders of lung Category: Medical (6) Bilateral renal cysts: Code(s): N28.1 - Cyst of kidney, acquired Category: Medical (7) Polycythemia: Code(s): D75.1 - Secondary polycythemia Category: Medical Plan 73 year old man with CKD in setting hypertension and CKD Keep Lisinopril 10 mg QD monitor his blood pressure at home. Renal function stable. Serum creatinine has improved - down to 1.3 No need for 24 hour ambulatory blood pressure monitoring yet The meantime stay on low-sodium diet / increase fluid intake. renal ultrasonogram shows multiple cyst with possible complex cyst CT scan revealed multiple simple cysts. But 3 cysts were indeterminate. Follow-up CT scan has been recommended in the next 6-12 months. We will defer to Urology. Will obtain repeat CT in 6 months He has minimal proteinuria due to underlying hypertensive kidney disease. No significant hematuria and interstitial nephritis seems unlikely at this point. If creatinine continues to increase, would DC lisinopril /HCT and try Amlodipine Polycythemia - probably due to Restrictive lung diz. However, with the renal cyst, excessive erythropoeitin production is a possibility Follow with Oncology Check EPO level Orders: Orders Basic Metabolic Panel 6 Months D75.1 - Secondary polycythemia, N18.9 - Chronic kidney disease, unspecified, N28.1 - Cyst of kidney, acquired Complete Blood Count Auto Diff 6 Months D75.1 - Secondary polycythemia, N18.9 - Chronic kidney disease, unspecified, N28.1 - Cyst of kidney, acquired Erythropoietin (EPO) 6 Months D75.1 - Secondary polycythemia, N18.9 - Chronic kidney disease, unspecified, N28.1 - Cyst of kidney, acquired CT abdomen pelvis w IV con 5 Months D75.1 - Secondary polycythemia, N28.1 - Cyst of kidney, acquired Coding Level of Care Code Est Pt Level 4 (74696) Diagnoses CKD (chronic kidney disease) N18.9 Microalbuminuria R80.9 HTN (hypertension) I10 Polycythemia D75.1 Restrictive lung disease J98.4 Bilateral renal cysts N28.1
== END 2024-07-03 12:12 | disposition home or self-care (01) ==
PROVIDERS: PCP Nurse Practitioner Family; Visit Provider Internal Medicine Hypertension Specialist
DX: R80.9 Proteinuria, unspecified (principal); I12.9 Hypertensive chronic kidney disease with stage 1 through stage 4 chronic kidney disease, or unspecified chronic kidney disease; N18.9 Chronic kidney disease, unspecified; D75.1 Secondary polycythemia; J98.4 Other disorders of lung; N28.1 Cyst of kidney, acquired
CPT/HCPCS: 99214

== ENCOUNTER → 2024-07-03 11:51 | Outpatient (BNVA) | payer MEDICARE, OTHER, SELFPAY | PROVIDERS: PCP Nurse Practitioner Family; Visit Provider Internal Medicine Hypertension Specialist | DX: R80.9 Proteinuria, unspecified (principal); I12.9 Hypertensive chronic kidney disease with stage 1 through stage 4 chronic kidney disease, or unspecified chronic kidney disease; N18.9 Chronic kidney disease, unspecified; N28.1 Cyst of kidney, acquired; D75.1 Secondary polycythemia; J98.4 Other disorders of lung | CPT/HCPCS: 99212 ==

== ENCOUNTER 2024-08-30 07:38 | Outpatient (REF) | payer MEDICARE, OTHER, SELFPAY ==
[2024-08-30 10:56] LABS: PSA,Total (Free>4and<10) 1.44 ng/mL (0.00-4.00)
== END 2024-08-30 07:39 | disposition home or self-care (01) ==
LOC: HO.HMGCLDS 07:38
PROVIDERS: PCP Nurse Practitioner Family; Visit Provider Urology
DX: Z12.5 Encounter for screening for malignant neoplasm of prostate (principal)
CPT/HCPCS: 36415; 84153

== ENCOUNTER 2024-09-06 08:12 | Outpatient (AMB) | payer MEDICARE, OTHER, SELFPAY ==
[2024-09-06 08:18] VITALS: BP 118/70; PULSE 78; RESP 12; TEMP 36.7; O2SAT 97; BMI 28.0
--- NOTE | 2024-09-06 08:18 | A.OFFPC_ITS ---
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: No Accompanied by: Self / Same As Patient Allergies sulfamethoxazole [From BACTRIM] Allergy (Intermediate, Verified 09/06/24 08:19) HIVES trimethoprim [From BACTRIM] Allergy (Intermediate, Verified 09/06/24 08:19) HIVES Medication List - Last Reconciled 09/06/24 by Wicho Townsend FISHERIES DIRECTOR- alfuzosin ER 10 mg PO DAILY atorvastatin 20 mg PO BEDTIME 90 days blood sugar diagnostic (FreeStyle Lite Strips) As directed cetirizine (All Day Allergy (cetirizine)) 10 mg PO DAILY PRN lisinopril 10 mg PO DAILY meclizine 25 mg PO BID PRN 20 days omeprazole magnesium (Prilosec OTC) 20 mg PO DAILY Tobacco use date assessed: 09/06/24 Fall risk assessment: No Falls in past year Last assessed Fall Risk: 09/06/24 Dental Screening Dental Screen Date: 09/06/24 Did you have a dental visit in the last 12 months?: Yes Did you have a dental problem in the last 6 months where you did not have access to dental care?: No Was dental information given to patient?: Patient has dentist HPI 6 month f/u HPI Details Chief Complaint Follow-up for management of diabetes mellitus. History of Present Illness The patient is a 73-year-old male presenting with follow-up for diabetes mellitus. The diabetes is typically well-controlled and the patient denies symptoms such as neuropathy, polyuria, and polydipsia. He regularly updates his eye examinations, adhering to recommended health maintenance. Approximately three months prior, the patient underwent a right total knee arthroplasty. He continues to engage in stretching and exercise routines daily, contributing positively to rehabilitation efforts. Social History - Engages in daily exercises. Health Maintenance - Regular eye examinations. Review of Systems - General: Denies fevers, chills. - Cardiovascular: Denies chest pain. Physical Exam General: Cooperative, healthy appearing, comfortable, no acute distress and well developed Orientation: Patient oriented x3 Limitations: No limitations Head: Normal to inspection Ears: Hearing grossly normal bilaterally Nose: Normal external nose present Face and sinus: Normal facial exam Eyes: Appearance normal, both eyes and all related structures Neck: Normal visual inspection and Yes full ROM Respiratory: Normal respiratory effort and able to speak in complete sentences. Clear to auscultation bilaterally Cardiovascular: Regular rate and rhythm. Normal S1 and S2 GI: Normal to inspection. Soft to palpation and nontender Skin: No rashes or lesions noted Neuro: Patient oriented x3 Extremities: Feet were intact bilaterally and he had positive sensation with use of monofilament, positive dorsalis pedis bilaterally. Results Plan - For diabetes mellitus, I will order la boratory tests including Hemoglobin A1c and microalbumin to assess current glycemic control and kidney function. - Regarding the right knee post-arthropl asty, continue daily stretching and exercise as part of the rehabilitation process. . Discussion Notes During the visit, I discussed the current management of diabetes mellitus, including the importance of regular monitoring through laboratory evaluations such as Hemoglobin A1c and microalbumin. I emphasized the significance of consistent exercise post-knee arthroplasty for successful rehabilitation. No new symptoms or concerns about diabetes were reported. We discussed the current positive outcome of the knee surgery and its steady improvement. Patient Instructions - Continue your regular exercise routine . - I will order lab tests for diabetes mo nitoring; we will follow up with the results. - Keep attending your scheduled eye exam s regularly. [facility] [place] Medical History History of subdural hematoma (~2018) Diabetes (~2021) History of MRSA infection (~2014) Hx of vertigo Sleep apnea GERD (gastroesophageal reflux disease) Hypertension Hyperlipidemia Surgical History History of total right knee replacement S/P scrotal varicocelectomy History of brain surgery History of endoscopy History of vasectomy History of varicose vein stripping History of appendectomy History of colonoscopy History of incision and drainage Family History Father Diabetes Hypertension Mother No problems noted. Social History Housing: House Are you a primary pharmacist critical care to a significant other at home: No Do you presently have visiting nurse or other home services: No Alcohol intake: current Alcohol intake frequency: a few times a week Patient Tobacco Use Status: Former Tobacco user Tobacco use type: Cigarette Years Smoked: 5 e-Cigarette/Vaping Use: Never Used Second Hand Smoke Exposure: No Advance Directives Date on File: 02/02/21 service: Yes Current occupational status: retired Cognitive needs: No Hearing needs: No Vision needs: No Questionnaire PHQ-9 Over the last 2 weeks, how often have you been bothered by any of the following problems? 1. Little interest or pleasure in doing things: not at all 2. Feeling down, depressed, or hopeless: not at all 3. Trouble falling or staying asleep, or sleeping too much: not at all 4. Feeling tired or having little energy: not at all 5. Poor appetite or overeating: not at all 6. Feeling bad about yourself - or that you are a failure or have let yourself or your family down: not at all 7. Trouble concentrating on things, such as reading the newspaper or watching television: not at all 8. Moving or speaking so slowly that other people could have noticed. Or the opposite - being so fidgety or restless that you have been moving around a lot more than usual: not at all 9. Thoughts that you would be better off or of hurting yourself in some way: not at all Total score: 0 Depression Screening Interpretation: Negative Depression Screening Done: Yes 52995 - PHQ-9 Billing: Yes Source: Developed by Drs. Jeison Sampson, Kenyatta Brock, Marc Medrano and colleagues, with an educational ele from [employer]. Thrive Questionnaire Date Thrive assessed: 09/06/24 I am a: Patient What is your living situation today?: I have a steady place to live Within the past 12 months, did the food you bought not last and you didn't have the money to get more?: Never true Within the past 12 months, did you worry whether your food would run out before you got money to buy more?: Never true Do you have trouble paying for medicines?: No Do you have trouble getting transportation to medical appointments?: No Do you have trouble paying your heating and electricity bill?: No Do you have trouble taking care of your child, family member or friend?: No Do you have trouble with day-to-day activities such as bathing, preparing meals, shopping, managing finances, etc.?: No Are you currently unemployed and looking for a job?: No Are you interested in more education?: No Please select the resources that you would like help with: None Currently or been in a relationship where the following occur: I choose not to answer THRIVE Score: 0 AUDIT C Alcohol Use Questionnaire (AUDIT-C) 1. How often do you have a drink containing alcohol?: Monthly or less 2. How many drinks containing alcohol do you have on a typical day when you are drinking?: 1 or 2 3. How often do you have six or more drinks on one occasion?: Never Total Score: 1 Score Reviewed/Action Taken: Yes JESUS-7 AMB Questionnaire JESUS-7 Date JESUS - 7 assessed: 09/06/24 Feeling nervous, anxious, or on edge: 0 = Not at all Not being able to stop or control worryin = Not at all Worrying too much about different things: 0 = Not at all Trouble relaxin = Not at all Being so restless that it is hard to sit still: 0 = Not at all Becoming easily annoyed or irritable: 0 = Not at all Feeling afraid as if something awful might happen: 0 = Not at all Total JESUS-7 score (0-4 normal; 5-9 mild; 10-14 moderate; 15-21 severe): 0 Source: Developed by Drs. Jeison Sampson, Kenyatta Brock, Marc Medrano and colleagues, with an educational ele from [employer]. JESUS-7 Assessment Billing JESUS-7 Assessment Tool: JESUS-7 Assessment 65151 Physical exam (Primary Care) Vital Signs: Last Vital Signs Temp 98.0 F 09/06/24 08:18 Pulse 78 09/06/24 08:18 Resp 12 09/06/24 08:18 BP 118/70 09/06/24 08:18 Pulse Ox 97 09/06/24 08:18 BMI result Body Mass Index 28.0 Tobacco/Smoking Status: Tobacco use Status Tobacco use date assessed 09/06/24 09/06/24 08:19 Patient Tobacco Use Status Former Tobacco user 09/06/24 08:19 Tobacco use type Cigarette 09/06/24 08:19 e-Cigarette/Vaping Use Never Used 09/06/24 08:19 PHQ-9: PHQ-9 Score PHQ-9: Total score 0 09/06/24 08:19 Depression Screening Interpretation: Negative Thrive Assessment: Date of Thrive Assessment Date Thrive assessed 09/06/24 09/06/24 08:19 Currently or been in a relationship where the following occur: I choose not to answer Coding Level of Care Code Est Pt Level 3 (19283) Diagnoses Diabetes E11.9 Additional Codes JESUS-7 Assessment Billing - JESUS-7 Assessment Tool: JESUS-7 Assessment 65412 ([id number]) PHQ-9 - 99500 - PHQ-9 Billing: Yes ([id number]) Assessment & Plan Assessment & Plan (1) Diabetes: Onset Date: ~2021 Code(s): E11.9 - Type 2 diabetes mellitus without complications Category: Medical Plan . Orders: Orders Comprehensive [place]. Panel Fast Today E11.9 - Type 2 diabetes mellitus without complications UA CC w/rflx Micro + Cult Today E11.9 - Type 2 diabetes mellitus without complications Lipid Panel Today E11.9 - Type 2 diabetes mellitus without complications Microalbumin, Random (w Creat) Today E11.9 - Type 2 diabetes mellitus without complications Hemoglobin A1c Today E11.9 - Type 2 diabetes mellitus without complications Complete Blood Count Auto Diff Today E11.9 - Type 2 diabetes mellitus without complications TSH reflex Free T4 Today E11.9 - Type 2 diabetes mellitus without complications
== END 2024-09-06 08:54 | disposition home or self-care (01) ==
PROVIDERS: PCP Nurse Practitioner Family; Visit Provider Nurse Practitioner Family
DX: E11.9 Type 2 diabetes mellitus without complications (principal)

== ENCOUNTER → 2024-09-06 08:12 | Outpatient (BNVA) | payer MEDICARE, OTHER, SELFPAY | PROVIDERS: PCP Nurse Practitioner Family; Visit Provider Nurse Practitioner Family | DX: E11.9 Type 2 diabetes mellitus without complications (principal) | CPT/HCPCS: 96127; 99212 ==

== ENCOUNTER → 2024-09-13 08:16 | Outpatient (BNVA) | payer MEDICARE, OTHER, SELFPAY | PROVIDERS: PCP Nurse Practitioner Family; Visit Provider Urology | DX: N40.1 Benign prostatic hyperplasia with lower urinary tract symptoms (principal); R35.0 Frequency of micturition; R35.1 Nocturia; E11.22 Type 2 diabetes mellitus with diabetic chronic kidney disease; N18.9 Chronic kidney disease, unspecified; N28.1 Cyst of kidney, acquired | CPT/HCPCS: 51798; 81003; 99212 ==

== ENCOUNTER 2024-09-25 12:27 | Outpatient (REF) | payer MEDICARE, OTHER, SELFPAY | END 2024-09-25 12:28 | disposition home or self-care (01) | LOC: HO.BBR 12:27 | PROVIDERS: Visit Provider Internal Medicine Medical Oncology | DX: D75.1 Secondary polycythemia (principal) | CPT/HCPCS: 85014; 85018; 99195 ==

== ENCOUNTER 2024-10-18 07:06 | Outpatient (REF) | payer MEDICARE, OTHER, SELFPAY ==
[2024-10-18 10:07] LABS: MANUAL DIFF FLAG NO
[2024-10-18 10:09] LABS: Basophils Absolute Auto 0.1 X10*3/uL (0.0-0.2); Basophils Percent Auto 0.9 % (0-2); Eosinophils Absolute Auto 0.2 X10*3/uL (0.0-0.4); Eosinophils Percent Auto 2.7 % (0-4); Hematocrit 48.2 % (42.0-52.0); Hemoglobin 16.1 g/dl (14.0-18.0); Imm Gran Abs Auto 0.01 X10*3/uL (0.00-0.03); Imm Gran Pct Auto 0.2 % (0.0-0.4); Lymphocytes Absolute Auto 1.1 X10*3/uL (1.2-4.9); Lymphocytes Percent Auto 19.7 % (20-40); Mean Corpuscular HGB Conc 33.4 g/dl (31.0-36.0); Mean Corpuscular Hemoglobin 29.5 pg (27.0-33.0); Mean Corpuscular Volume 88.4 fL (80.0-98.0); Monocytes Absolute Auto 0.4 X10*3/uL (0.1-1.2); Monocytes Percent Auto 7.9 % (2-11); Neutrophils Absolute Auto 3.8 x10*3/uL (2.0-8.3); Neutrophils Percent Auto 68.6 % (45-73); Platelet Count 182 X10*3/uL (160-400); Red Blood Count 5.45 X10*6/uL (4.60-5.80); White Blood Count 5.5 X10*3/uL (4.8-10.8)
[2024-10-18 10:12] LABS: Appearance Urine Clear; Color Urine Yellow; Glucose Urine UA Negative (Negative); Leukocyte Esterase Urine Negative (Negative); Nitrite Urine Negative (Negative); Urine Blood Negative (Negative); Urine Ketones Negative (Negative); Urine Protein Negative (Neg-Trace)
[2024-10-18 10:17] LABS: Estimated Average Glucose 108 mg/dL; Hemoglobin A1C 147.9653 umol/L; Hemoglobin A1c % 5.4 % (<6.0); Total Hemoglobin (HGBA1C) 4154.2344 umol/L
[2024-10-18 10:42] LABS: Creatinine Urine 121.44 mg/dL; Microalbum/Creatinine Ratio Ur 12.3 ug/mg cr (<30)
[2024-10-18 10:46] LABS: Alanine Aminotransferase 14 U/L (0-40); Albumin Level 4.2 g/dL (3.5-5.0); Alkaline Phosphatase 64 U/L (39-117); Anion Gap 11 (12-20); Aspartate Amino Transferase 22 U/L (5-37); Bilirubin Total 0.9 mg/dL (0.0-1.0); Blood Urea Nitrogen 29 mg/dL (9-16); Calcium 9.5 mg/dL (8.4-10.2); Carbon Dioxide 26 mmol/L (22-29); Chloride 109 mmol/L (96-108); Cholesterol 107 mg/dL (<200); Estimated Glomerular Filt Rate 52; Glucose Fasting 112 mg/dL (60-99); HDL Cholesterol 42 mg/dL (>40); LDL Cholesterol Calculated 51 mg/dL (<100); Potassium 4.3 mmol/L (3.3-5.1); Sodium 142 mmol/L (135-145); Total Protein 6.7 g/dL (6.5-8.0); Triglycerides 71 mg/dL (<150)
== END 2024-10-18 07:07 | disposition home or self-care (01) ==
LOC: HO.HMGCLDS 07:06
PROVIDERS: PCP Nurse Practitioner Family; Visit Provider Nurse Practitioner Family
DX: E11.9 Type 2 diabetes mellitus without complications (principal)
CPT/HCPCS: 36415; 80053; 80061; 81003; 82043; 82570; 83036; 84443; 85025

== ENCOUNTER 2024-12-03 07:56 | Outpatient (REF) | payer MEDICARE, OTHER, SELFPAY ==
--- NOTE | ~2024-12-03 | CT_ITS ---
CLINICAL HISTORY: N28.1 - Cyst of kidney, acquired --- Additional Notes or Special Instructions: Need s to hold lisinopril on the day of IV contrast CT abdomen and pelvis with and without contrast Comparison: CT/[place]/SR - CT CHEST WO IV CON - 03/01/24 07:[address]/REG/[place]/SR - CT ABDOMEN PELVIS W IV CON - 11/14/23 08:35 EDT Findings: No consolidation at the lung bases. Unremarkable gallbladder. Underdistended thick-walled bladder, similar to the prior study and likely secondary to chronic outlet obstruction. Liver cysts and subcentimeter low attenuating lesions which are too small to characterize. The prostate is enlarged, measuring 5.6 cm in transverse dimension. There are numerous bilateral simple renal cysts, similar to the prior study. The largest cyst on the right measures up to 9.2 cm. The largest cyst on the left measures up to 12.1 cm. There are nonenhancing renal lesions which measure higher than simple fluid such in the upper pole right kidney measuring 4.8 cm in 22 Hounsfield units and in the lower pole of the right kidney measuring 6.0 cm and 24 Hounsfield units. In the midportion of the left kidney measuring 2.2 cm in 21 Hounsfield units. There are subcentimeter hyperattenuating lesions in the right kidney which are too small to characterize no hydronephrosis. There are parapelvic cysts on the right. No nephrolithiasis. There are bilateral renal subcentimeter low attenuating lesions which are too small to characterize. The other solid organs are unremarkable. No bowel wall thickening or dilation. The appendix is not visualized. No secondary signs of acute appendicitis. Colonic diverticulosis. No aneurysm. Moderate calcified atherosclerotic disease. No lymphadenopathy. No ascites. No acute osseous abnormality. Impression: No acute findings. Numerous bilateral simple renal cysts. Renal lesions which measure higher than simple fluid are nonenhancing and likely indicate hemorrhagic or proteinaceous cysts. There are subcentimeter hyperattenuating right renal lesions, indeterminate. This document has been electronically signed by: Sarah Wilburn MD on 12/03/2024 15:24:51
[2024-12-03] MEDS: iohexoL 350 MG/ML 75 ML INFUS..BTL 85 ML IV (08:58)
[2024-12-03 10:52] LABS: Creatinine POC 0.9 mg/dL (0.5-1.4); GFR POC > 60
== END 2024-12-03 07:57 | disposition home or self-care (01) ==
LOC: HO.CT 07:56
PROVIDERS: PCP Nurse Practitioner Family; Visit Provider Internal Medicine Hypertension Specialist
DX: N28.1 Cyst of kidney, acquired (principal)
CPT/HCPCS: 74178; 82565; Q9967

== ENCOUNTER → 2024-12-03 07:58 | Outpatient (BNV) | payer MEDICARE, OTHER, SELFPAY | PROVIDERS: PCP Nurse Practitioner Family; Visit Provider Radiology Diagnostic Radiology | DX: N28.1 Cyst of kidney, acquired (principal) | CPT/HCPCS: 74178 ==

== ENCOUNTER 2024-12-10 06:35 | Outpatient (REF) | payer MEDICARE, OTHER, SELFPAY ==
[2024-12-10 10:12] LABS: MANUAL DIFF FLAG NO
[2024-12-10 10:33] LABS: Basophils Percent Auto 0.6 % (0-2); Eosinophils Absolute Auto 0.2 X10*3/uL (0.0-0.4); Eosinophils Percent Auto 2.8 % (0-4); Hematocrit 50.5 % (42.0-52.0); Hemoglobin 16.9 g/dl (14.0-18.0); Imm Gran Abs Auto 0.01 X10*3/uL (0.00-0.03); Imm Gran Pct Auto 0.2 % (0.0-0.4); Lymphocytes Absolute Auto 1.2 X10*3/uL (1.2-4.9); Mean Corpuscular HGB Conc 33.5 g/dl (31.0-36.0); Mean Corpuscular Volume 89.5 fL (80.0-98.0); Mean Platelet Volume 9.9 fL (9.4-12.4); Monocytes Absolute Auto 0.6 X10*3/uL (0.1-1.2); Monocytes Percent Auto 8.5 % (2-11); Neutrophils Absolute Auto 4.5 x10*3/uL (2.0-8.3); Neutrophils Percent Auto 68.9 % (45-73); Platelet Count 185 X10*3/uL (160-400); Red Blood Count 5.64 X10*6/uL (4.60-5.80); Red Cell Distribution Width 12.6 % (11.0-16.0); White Blood Count 6.5 X10*3/uL (4.8-10.8)
[2024-12-10 10:40] LABS: Anion Gap 12 (12-20); Blood Urea Nitrogen 27 mg/dL (9-16); Calcium 9.1 mg/dL (8.4-10.2); Carbon Dioxide 28 mmol/L (22-29); Chloride 106 mmol/L (96-108); Estimated Glomerular Filt Rate 45; Glucose Random 118 mg/dL (60-115); Potassium 4.5 mmol/L (3.3-5.1); Sodium 141 mmol/L (135-145)
[2024-12-11 19:09] LABS: Erythropoietin (EPO) 12.2 mIU/mL (2.6-18.5)
== END 2024-12-10 06:36 | disposition home or self-care (01) ==
LOC: HO.HMGCLDS 06:35
PROVIDERS: PCP Nurse Practitioner Family; Visit Provider Internal Medicine Hypertension Specialist
DX: N28.1 Cyst of kidney, acquired (principal); D75.1 Secondary polycythemia; N18.9 Chronic kidney disease, unspecified
CPT/HCPCS: 36415; 80048; 82668; 85025

== ENCOUNTER 2024-12-17 10:07 | Outpatient (AMB) | payer MEDICARE, OTHER, SELFPAY ==
--- NOTE | 2024-12-17 10:07 | HO.NEPHOV_ITS ---
Vital Signs 12/17/24 10:08 Height 5 ft 8 in Weight 190 lb BMI 28.9 BP 138/72 Blood Pressure Location Rt brachial Position Sitting Pulse 88 Pulse Source Pulse Oximeter Pulse Oximetry (%) 96 Oxygen Delivery Method Room Air Intake Visit Reasons: Bilateral renal cysts Camp Maintenance Supervisor Required: No Accompanied by: Self / Same As Patient Allergies sulfamethoxazole [From BACTRIM] Allergy (Intermediate, Verified 12/17/24 10:09) HIVES trimethoprim [From BACTRIM] Allergy (Intermediate, Verified 12/17/24 10:09) HIVES Medication List - Last Reconciled 12/17/24 by Dimitrios Vargas MD alfuzosin ER 10 mg PO DAILY atorvastatin 20 mg PO BEDTIME 90 days blood sugar diagnostic (FreeStyle Lite Strips) As directed cetirizine (All Day Allergy (cetirizine)) 10 mg PO DAILY PRN hydrocortisone-acetic acid 1-2 % drps otic (ears) lisinopril 10 mg PO DAILY meclizine 25 mg PO BID PRN 20 days omeprazole magnesium (Prilosec OTC) 20 mg PO DAILY HPI Comments Details: 72-year-old man with a history of longstanding hypertension. He was on yolanda nopril 20/12.5 mg 1 a day. He was feeling lightheaded. This has been decreased to half a tablet a day. He has been watching his blood pressure at home. Usually blood pressure control. He states sometimes blood pressure goes of while in the doctor's office. Nine he suspects he might have white coat hypertension. Serum creatinine is 1.29. Last year creatinine was 1.4. There has been flu ctuations in creatinine 1.4-1.2. He has been referred for evaluation renal insufficiency. History of subdural hematoma few years ago. This was secondary to trauma. 07/28/23: HCTZ was stopped. NO improvement in creatinine Baseline is 1.33 Home SBP is 147 and 148 Has some difficulty urinating Waiting to see Urology 10/30 Events noted USG shows cysts with possible complex cyst Waiting for CT scan Seen by Torres Ram for Polycyethemia 01/30/2024 Here for follow-up. Blood pressure is well controlled. Seen by Dr. Us and waiting for a CT scan of the chest. 07/03/24;s/p Knee replacement -right 5 weeks ago ;Seen by and Oncology 12/17/24: Still has knee pain. Doing well from a renal stand point; NO urinary issues/No hematuria [facility] Medical History History of subdural hematoma (~2017) Diabetes (~2021) History of MRSA infection (~2014) Hx of vertigo Sleep apnea GERD (gastroesophageal reflux disease) Hypertension Hyperlipidemia Surgical History History of total right knee replacement S/P scrotal varicocelectomy History of brain surgery History of endoscopy History of vasectomy History of varicose vein stripping History of appendectomy History of colonoscopy History of incision and drainage Family History Father Diabetes Hypertension Mother No problems noted. Social History Housing: House Are you a primary resident caregiver to a significant other at home: No Do you presently have visiting nurse or other home services: No Alcohol intake: current Alcohol intake frequency: a few times a week Patient Tobacco Use Status: Former Tobacco user Tobacco use type: Cigarette Years Smoked: 5 e-Cigarette/Vaping Use: Never Used Second Hand Smoke Exposure: No Advance Directives Date on File: 02/02/21 service: Yes Current occupational status: retired Cognitive needs: No Hearing needs: No Vision needs: No Physical Exam Vital Signs: BMI result Body Mass Index 28.9 Const General: comfortable; No acute distress Orientation/consciousness: patient oriented x3 Eyes General: appearance normal, both eyes and all related structures Visual Tinoco: normal visual tinoco by confrontation Neck Neck: Yes supple and Yes no JVD Resp Effort & Inspection: normal respiratory effort and respiratory effort not decreased Cardio Palpation: no palpable S3 and no palpable S4 Heart sounds: no rubs GI Inspection: Yes normal to inspection Palpation (GI): Soft to palpation Percussion: Yes normal to percussion Auscultation: normal bowel sounds General: Yes no CVA tenderness Back/Spine/Pelvis Back: no CVA tenderness Skin General skin exam: no petechiae and no purpura Neuro General: patient oriented x3 and no focal motor deficits Extrem General: No clubbing and No edema Results Reviewed Nephrology Results: Hgb 16.9 g/dl (14.0-18.0) 12/10/24 WBC 6.5 X10*3/uL (4.8-10.8) 12/10/24 Plt Count 185 X10*3/uL (160-400) 12/10/24 Sodium 141 mmol/L (135-145) 12/10/24 Potassium 4.5 mmol/L (3.3-5.1) 12/10/24 Chloride 106 mmol/L (96-108) 12/10/24 Carbon Dioxide 28 mmol/L (22-29) 12/10/24 BUN 27 mg/dL (9-16) H 12/10/24 Creatinine 1.52 mg/dL (0.5-1.4) H 12/10/24 Calcium 9.1 mg/dL (8.4-10.2) 12/10/24 Urine Protein Negative mg/dL (Neg-Trace) 10/18/24 Urine Creatinine 121.44 mg/dL 10/18/24 Assessment & Plan Assessment & Plan (1) CKD (chronic kidney disease): Code(s): N18.9 - Chronic kidney disease, unspecified Category: Medical (2) Microalbuminuria: Code(s): R80.9 - Proteinuria, unspecified Category: Medical (3) HTN (hypertension): Code(s): I10 - Essential (primary) hypertension Category: Medical (4) Polycythemia: Code(s): D75.1 - Secondary polycythemia Category: Medical (5) Restrictive lung disease: Code(s): J98.4 - Other disorders of lung Category: Medical (6) Bilateral renal cysts: Code(s): N28.1 - Cyst of kidney, acquired Category: Medical (7) Polycythemia: Code(s): D75.1 - Secondary polycythemia Category: Medical Plan 74 year old man with CKD in setting hypertension and CKD Keep Lisinopril 10 mg QD monitor his blood pressure at home. Renal function stable. Serum creatinine has improved - down to 1.3 No need for 24 hour ambulatory blood pressure monitoring yet The meantime stay on low-sodium diet / increase fluid intake. renal ultrasonogram shows multiple cyst with possible complex cyst CT scan revealed multiple simple cysts. But 3 cysts were indeterminate. Follow-up CT scan -essentially unchanged We will defer to Urology. He has minimal proteinuria due to underlying hypertensive kidney disease. No significant hematuria and interstitial nephritis seems unlikely at this point. Polycythemia - probably due to Restrictive lung diz. However, with the renal cyst, excessive erythropoeitin production is a possibility Follow with Oncology Orders: Orders Total Protein Urine Random 6 Months N18.9 - Chronic kidney disease, unspecified, N28.1 - Cyst of kidney, acquired Creatinine Urine 6 Months N18.9 - Chronic kidney disease, unspecified, N28.1 - Cyst of kidney, acquired Complete Blood Count no Diff 6 Months N18.9 - Chronic kidney disease, unspecified, N28.1 - Cyst of kidney, acquired Basic Metabolic Panel 6 Months N18.9 - Chronic kidney disease, unspecified, N28.1 - Cyst of kidney, acquired UA and rflx microscopic 6 Months N18.9 - Chronic kidney disease, unspecified, N28.1 - Cyst of kidney, acquired Coding Level of Care Code Est Pt Level 4 (53985) Diagnoses CKD (chronic kidney disease) N18.9 Microalbuminuria R80.9 HTN (hypertension) I10 Polycythemia D75.1 Restrictive lung disease J98.4 Bilateral renal cysts N28.1
[2024-12-17 10:08] VITALS: BP 138/72; PULSE 88; O2SAT 96; BMI 28.9
== END 2024-12-17 10:19 | disposition home or self-care (01) ==
PROVIDERS: PCP Nurse Practitioner Family; Visit Provider Internal Medicine Hypertension Specialist
DX: I12.9 Hypertensive chronic kidney disease with stage 1 through stage 4 chronic kidney disease, or unspecified chronic kidney disease (principal); N18.9 Chronic kidney disease, unspecified; R80.9 Proteinuria, unspecified; D75.1 Secondary polycythemia; J98.4 Other disorders of lung; N28.1 Cyst of kidney, acquired
CPT/HCPCS: 99214

== ENCOUNTER → 2024-12-17 10:07 | Outpatient (BNVA) | payer MEDICARE, OTHER, SELFPAY | PROVIDERS: PCP Nurse Practitioner Family; Visit Provider Internal Medicine Hypertension Specialist | DX: I12.9 Hypertensive chronic kidney disease with stage 1 through stage 4 chronic kidney disease, or unspecified chronic kidney disease (principal); N18.9 Chronic kidney disease, unspecified; R80.9 Proteinuria, unspecified; D75.1 Secondary polycythemia; J98.4 Other disorders of lung; N28.1 Cyst of kidney, acquired | CPT/HCPCS: 99212 ==

== ENCOUNTER 2024-12-27 08:02 | Outpatient (REF) | payer MEDICARE, OTHER, SELFPAY ==
[2024-12-27 08:15] LABS: Basophils Percent Auto 0.6 % (0-2); Eosinophils Absolute Auto 0.2 X10*3/uL (0.0-0.4); Eosinophils Percent Auto 2.4 % (0-4); Hemoglobin 16.9 g/dl (14.0-18.0); Imm Gran Abs Auto 0.02 X10*3/uL (0.00-0.03); Imm Gran Pct Auto 0.3 % (0.0-0.4); Lymphocytes Absolute Auto 1.2 X10*3/uL (1.2-4.9); Lymphocytes Percent Auto 17.4 % (20-40); MANUAL DIFF FLAG NO; Mean Corpuscular HGB Conc 34.5 g/dl (31.0-36.0); Mean Corpuscular Hemoglobin 30.1 pg (27.0-33.0); Mean Corpuscular Volume 87.3 fL (80.0-98.0); Mean Platelet Volume 8.9 fL (9.4-12.4); Monocytes Absolute Auto 0.4 X10*3/uL (0.1-1.2); Monocytes Percent Auto 6.5 % (2-11); Neutrophils Absolute Auto 4.8 x10*3/uL (2.0-8.3); Neutrophils Percent Auto 72.8 % (45-73); Platelet Count 157 X10*3/uL (160-400); Red Blood Count 5.61 X10*6/uL (4.60-5.80); Red Cell Distribution Width 12.3 % (11.0-16.0); White Blood Count 6.6 X10*3/uL (4.8-10.8)
== END 2024-12-27 08:03 | disposition home or self-care (01) ==
LOC: HO.BBR 08:02
PROVIDERS: PCP Nurse Practitioner Family; Visit Provider Internal Medicine Medical Oncology
DX: D45 Polycythemia vera (principal)
CPT/HCPCS: 36415; 85014; 85018; 85025; 99195

== ENCOUNTER 2025-03-21 08:26 | Outpatient (AMB) | payer MEDICARE, OTHER, SELFPAY ==
--- NOTE | 2025-03-21 08:33 | MHC.PC.OV ---
Vital Signs 03/21/25 08:34 Height 5 ft 8 in Weight 188 lb BMI 28.6 BP 124/68 Blood Pressure Location Lt brachial Position Sitting Respiration 16 Pulse 68 Pulse Source Pulse Oximeter Temp 97.9 F Temp Source Oral Pulse Oximetry (%) 96 Oxygen Delivery Method Room Air Intake Visit Reasons: 6 month f/u Tipple Oiler Required: No Accompanied by: Self / Same As Patient Allergies sulfamethoxazole (From BACTRIM) Allergy (Intermediate, Verified 03/21/25 08:37) HIVES trimethoprim (From BACTRIM) Allergy (Intermediate, Verified 03/21/25 08:37) HIVES Tobacco use date assessed: 03/21/25 Fall risk assessment: No Falls in past year Last assessed Fall Risk: 03/21/25 Dental Screening Dental Screen Date: 03/21/25 Did you have a dental visit in the last 12 months?: Yes Did you have a dental problem in the last 6 months where you did not have access to dental care?: No Was dental information given to patient?: Patient has dentist HPI 6 month f/u HPI Details Chief Complaint The patient presents for follow-up on diabetes and neuropathy management. History of Present Illness The patient is a 74-year-old male presenting with follow-up for diabetes management and neuropathy evaluation. He reports experiencing some neuropathy, although sensation remains intact as confirmed by monofilament testing. The patient has a history of smoking cessation 30 years ago, which is relevant to his current vascular concerns. The patient also reports symptoms of claudication, particularly in the left lower extremity, which has prompted the need for further vascular assessment. A faint systolic murmur was noted during the cardiovascular examination, and the patient has extensive varicose veins in the lower extremities. Social History - Smoking: Quit 30 years ago Health Maintenance microalbumin utd eye exam utd Review of Systems - Neurological: Reports some neuropathy, sensation intact - Cardiovascular: Reports symptoms of claudication type symptoms to LLE, denies chest pain, sob Physical Exam General: Cooperative, healthy appearing, comfortable, no acute distress and well developed Orientation: Patient oriented x3 Limitations: No limitations Head: Normal to inspection Ears: Hearing grossly normal bilaterally Nose: Normal external nose present Face and sinus: Normal facial exam Eyes: Appearance normal, both eyes and all related structures Neck: Normal visual inspection and Yes full ROM Respiratory: Normal respiratory effort and able to speak in complete sentences. Clear to auscultation bilaterally Cardiovascular: Regular rate and rhythm. Normal S1 and S2, faint systolic murmur, no carotid bruits auscultated GI: Normal to inspection. Soft to palpation and nontender Skin: No rashes or lesions noted Neuro: Patient oriented x3, positive sensation use of monofilament Extremities: Difficult time finding a PO pulse dorsalis pedis to left lower extremity, reports signs and symptoms of claudication, extensive varicose veins to lower extremities Results Plan The patient will undergo an arterial ultrasound of the left lower extremity to assess for vascular insufficiency due to reported claudication symptoms. Management of diabetes and neuropathy will continue with regular monitoring of sensation and glycemic control. Discussion Notes I discussed with the patient the need for an arterial ultrasound to evaluate the left lower extremity due to claudication symptoms. We also reviewed the importance of maintaining glycemic control and monitoring neuropathy symptoms. Patient Instructions - Continue monitoring blood sugar levels regularly. - Report any changes in sensation or new symptoms in the feet. - Follow up for the scheduled arterial ultrasound of the left leg. [facility] Medical History History of subdural hematoma (~2017) Diabetes (~2021) History of MRSA infection (~2014) Hx of vertigo Sleep apnea GERD (gastroesophageal reflux disease) Hypertension Hyperlipidemia Surgical History History of total right knee replacement S/P scrotal varicocelectomy History of brain surgery History of endoscopy History of vasectomy History of varicose vein stripping History of appendectomy History of colonoscopy History of incision and drainage Family History Father Diabetes Hypertension Mother No problems noted. Social History Housing: House Are you a primary career and technology education teacher to a significant other at home: No Do you presently have visiting nurse or other home services: No Alcohol intake: current Alcohol intake frequency: a few times a week Patient Tobacco Use Status: Former Tobacco user Tobacco use type: Cigarette Years Smoked: 5 e-Cigarette/Vaping Use: Never Used Second Hand Smoke Exposure: No Advance Directives Date on File: 02/02/21 service: Yes Current occupational status: retired Cognitive needs: No Hearing needs: No Vision needs: No Questionnaire PHQ-9 Over the last 2 weeks, how often have you been bothered by any of the following problems? 1. Little interest or pleasure in doing things: not at all 2. Feeling down, depressed, or hopeless: not at all 3. Trouble falling or staying asleep, or sleeping too much: not at all 4. Feeling tired or having little energy: not at all 5. Poor appetite or overeating: not at all 6. Feeling bad about yourself - or that you are a failure or have let yourself or your family down: not at all 7. Trouble concentrating on things, such as reading the newspaper or watching television: not at all 8. Moving or speaking so slowly that other people could have noticed. Or the opposite - being so fidgety or restless that you have been moving around a lot more than usual: not at all 9. Thoughts that you would be better off or of hurting yourself in some way: not at all Total score: 0 Depression Screening Interpretation: Negative Depression Screening Done: Yes 32177 - PHQ-9 Billing: Yes Source: Developed by Drs. Jeison Sampson, Kenyatta Brock, Marc Medrano and colleagues, with an educational ele from [employer]. Thrive Questionnaire Date Thrive assessed: 09/06/24 I am a: Patient What is your living situation today?: I have a steady place to live Within the past 12 months, did the food you bought not last and you didn't have the money to get more?: Never true Within the past 12 months, did you worry whether your food would run out before you got money to buy more?: Never true Do you have trouble paying for medicines?: No Do you have trouble getting transportation to medical appointments?: No Do you have trouble paying your heating and electricity bill?: No Do you have trouble taking care of your child, family member or friend?: No Do you have trouble with day-to-day activities such as bathing, preparing meals, shopping, managing finances, etc.?: No Are you currently unemployed and looking for a job?: No Are you interested in more education?: No Please select the resources that you would like help with: None Currently or been in a relationship where the following occur: I choose not to answer THRIVE Score: 0 JESUS-7 AMB Questionnaire JESUS-7 Date JESUS - 7 assessed: 03/21/25 Feeling nervous, anxious, or on edge: 0 = Not at all Not being able to stop or control worryin = Not at all Worrying too much about different things: 0 = Not at all Trouble relaxin = Not at all Being so restless that it is hard to sit still: 0 = Not at all Becoming easily annoyed or irritable: 0 = Not at all Feeling afraid as if something awful might happen: 0 = Not at all Total JESUS-7 score (0-4 normal; 5-9 mild; 10-14 moderate; 15-21 severe): 0 Source: Developed by Drs. Jeison Sampson, Kenyatta Brock, Marc Medrano and colleagues, with an educational ele from [employer]. JESUS-7 Assessment Billing JESUS-7 Assessment Tool: JESUS-7 Assessment 37048 Physical exam (Primary Care) Vital Signs: Last Vital Signs Temp 97.9 F 03/21/25 08:34 Pulse 68 03/21/25 08:34 Resp 16 03/21/25 08:34 BP 124/68 03/21/25 08:34 Pulse Ox 96 03/21/25 08:34 Oxygen Delivery Method Room Air 03/21/25 08:34 BMI result Body Mass Index 28.6 Tobacco/Smoking Status: Tobacco use Status Tobacco use date assessed 03/21/25 03/21/25 08:43 Patient Tobacco Use Status Former Tobacco user 03/21/25 08:43 Tobacco use type Cigarette 03/21/25 08:43 e-Cigarette/Vaping Use Never Used 03/21/25 08:43 PHQ-9: PHQ-9 Score PHQ-9: Total score 0 03/21/25 08:43 Depression Screening Interpretation: Negative Thrive Assessment: Date of Thrive Assessment Date Thrive assessed 09/06/24 03/21/25 08:43 Currently or been in a relationship where the following occur: I choose not to answer Results AMB Hemoglobin A1c AMB Hemoglobin A1c 5.5 % Last Edit by Afshan Quintero MA on 03/21/25 09:04 Coding Level of Care Code Est Pt Level 3 (72271) Diagnoses Diabetes E11.9 Absence of left dorsalis pedis artery pulse R09.89 Additional Codes JESUS-7 Assessment Billing - JESUS-7 Assessment Tool: JESUS-7 Assessment 05931 ([id number]) PHQ-9 - 42483 - PHQ-9 Billing: Yes ([id number]) Assessment & Plan Assessment & Plan (1) Diabetes: Onset Date: ~2021 Code(s): E11.9 - Type 2 diabetes mellitus without complications Category: Medical (2) Absence of left dorsalis pedis artery pulse: Code(s): R09.89 - Other specified symptoms and signs involving the circulatory and respiratory systems Category: Medical Plan . Orders: Orders UA CC w/rflx Micro + Cult Today E11.9 - Type 2 diabetes mellitus without complications Lipid Panel Today E11.9 - Type 2 diabetes mellitus without complications US arterial duplex LE LT Today R09.89 - Other specified symptoms and signs involving the circulatory and respiratory systems Complete Blood Count Auto Diff Today E11.9 - Type 2 diabetes mellitus without complications Comprehensive [place]. Panel Fast Today E11.9 - Type 2 diabetes mellitus without complications TSH reflex Free T4 Today E11.9 - Type 2 diabetes mellitus without complications AMB Hemoglobin A1c Today Z13.9 - Encounter for screening, unspecified
[2025-03-21 08:34] VITALS: BP 124/68; PULSE 68; RESP 16; TEMP 36.6; O2SAT 96; BMI 28.6
--- OUTSIDE RECORDS SUMMARY | 2025-03-21 08:42 | XMS_ITS | Clinical Summary ---
[facility] [place] [address] Care Team Providers Care Continuous Miner Operator Name Role Phone Wicho Moody MD Primary Care Provider [phone] Allergies No known active allergies Active Problems Problem Noted Date Diagnosed Date Rib fracture 01/17/2016 Social History Tobacco Use Types Packs/Day Years Used Date Smoking Tobacco: Every Day Sex and Gender Information Value Date Recorded Sex Assigned at Not on file Legal Sex Male 5:30 PM EDT Gender Identity Not on file Sexual Orientation Not on file Last Filed Vital Signs Vital Sign Reading Time Taken Comments Blood Pressure 122/94 01/18/2016 1:00 AM EDT Pulse 74 01/18/2016 1:00 AM EDT Temperature 36.5 C (97.7 F) 01/18/2016 1:23 AM EDT Respiratory Rate 14 01/18/2016 1:00 AM EDT Oxygen Saturation 94% 01/18/2016 1:00 AM EDT Inhaled Oxygen Concentration - - Weight 93 kg (205 lb) 01/17/2016 8:09 PM EDT Height 175.3 cm (5' 9 ) 01/17/2016 8:09 PM EDT Body Mass Index 30.27 01/17/2016 8:09 PM EDT Plan of Treatment Health Maintenance Due Date Last Done Comments CT Colonography 1951 Colonoscopy 1950 Colorectal Cancer Screening 1950 FIT DNA 1950 FIT 1950 Sigmoidoscopy (10 year) with FIT yearly 1950 Sigmoidoscopy 1950 Hepatitis C Screening 10/31/1969 Lipid Screening 10/31/1969 Pneumoccocal Vaccine: 50+ (1 of 2 - PCV) 10/31/1970 Tetanus/Diphtheria/Pertussis Vaccines (1 - Tdap) 10/31 Zoster vaccine (1 of 2) 10/31/2001 Advance Directive 10/31/2006 Covid-19 Vaccine (1 - 2023- season) 2024 Influenza (Flu) vaccine (1 o f 1 - Influenza standard series) 04/08/2025 Insurance [facility] Advance Directives * Full Code (Latest Code Status on File) Date Activated Date Inactivated Comments 01/17/2016 9:15 PM 01/18/2016 3:23 AM Question Answer Comments Does patient have capacity to make decision: Yes Care Teams Continuous Miner Operator Relationship Specialty Start Date End Date Wicho Moody MD EMERGENCY DEPT [address] [place] [id number] PCP - General Emergency Medicine 01/17/16
--- OUTSIDE RECORDS SUMMARY | 2025-03-21 08:43 | XMS_ITS | Patient Health Record ---
Author Organization [facility] Address [address] [place] [address] Care Team Providers Care Gripper Attacher Name Role Phone Mackenzie JACKSON, Patel Primary Care Provider Jeison Conley [phone] Reason For Referral No Information Plan Of Treatment No Information Insurance Providers Payer Name Payer Address Payer Phone Subscriber Number Group Number Insured Name Patient Relationship to Insured Coverage Start Date Coverage End Date [facility] Navigator Plan(REFERR AL IS NEEDED) [address] [place] [address] [id number] KATHERINE CERON Self - patient is the insured
== END 2025-03-21 09:08 | disposition home or self-care (01) ==
LOC: HO.HMCC 08:31
PROVIDERS: PCP Nurse Practitioner Family; Visit Provider Nurse Practitioner Family
DX: E11.9 Type 2 diabetes mellitus without complications (principal); R09.89 Other specified symptoms and signs involving the circulatory and respiratory systems; Z13.9 Encounter for screening, unspecified

== ENCOUNTER → 2025-03-21 08:26 | Outpatient (BNVA) | payer MEDICARE, OTHER, SELFPAY | PROVIDERS: PCP Nurse Practitioner Family; Visit Provider Nurse Practitioner Family | DX: E11.9 Type 2 diabetes mellitus without complications (principal); R09.89 Other specified symptoms and signs involving the circulatory and respiratory systems | CPT/HCPCS: 83036; 96127; 99212 ==

== ENCOUNTER 2025-03-28 09:09 | Outpatient (REF) | payer MEDICARE, OTHER, SELFPAY ==
--- OUTSIDE RECORDS SUMMARY | 2025-03-28 10:13 | XMS_ITS | Patient Health Record ---
Author Organization [facility] Address [address] [place] [address] Care Team Providers Care Odd Job Laborer Name Role Phone Mackenzie JACKSON, Patel Primary Care Provider Jeison Conley [phone] Reason For Referral No Information Plan Of Treatment No Information Insurance Providers Payer Name Payer Address Payer Phone Subscriber Number Group Number Insured Name Patient Relationship to Insured Coverage Start Date Coverage End Date [facility] Navigator Plan(REFERR AL IS NEEDED) [address] [place] [address] [id number] KATHERINE CERON Self - patient is the insured
--- OUTSIDE RECORDS SUMMARY | 2025-03-28 10:13 | XMS_ITS | Clinical Summary ---
Author Organization [facility] [place] [address] Care Team Providers Care Compensation Vice President Name Role Phone Wicho Moody MD Primary Care Provider [phone] Allergies No known active allergies Active Problems [...] 1 - Influenza standard series) 04/08/2025 Insurance [facility] Advance Directives * Full Code (Latest Code Status on File) Date Activated Date Inactivated Comments 01/17/2016 9:15 PM 01/18/2016 3:23 AM Question Answer Comments Does patient have capacity to make decision: Yes Care Teams Compensation Vice President Relationship Specialty Start Date End Date Wicho Moody MD EMERGENCY DEPT [address] [place] [id number] PCP - General Emergency Medicine 01/17/16
== END 2025-03-28 09:10 | disposition home or self-care (01) ==
LOC: HO.BBR 09:09
PROVIDERS: Visit Provider Internal Medicine Medical Oncology
DX: D58.2 Other hemoglobinopathies (principal)
CPT/HCPCS: 85018; 99195

== ENCOUNTER 2025-05-27 08:22 | Outpatient (REF) | payer MEDICARE, OTHER, SELFPAY ==
--- NOTE | ~2025-05-27 | US_ITS ---
EXAMINATION: Noninvasive assessment of the left lower extremity without ARTERIAL DUPLEX, ANKLE BRACHIAL INDICES (ABIs), and PULSE VOLUME RECORDINGS (PVRs). CLINICAL INFORMATION: Hypertension. Hyperlipidemia. Diabetes. R09.89. TECHNIQUE: Duplex Doppler techniques with waveform analysis and measurement of velocities in the left common femoral, profunda femoris, superficial femoral, popliteal and tibial arteries were performed. The study was performed only at rest. COMPARISON: None FINDINGS: DIRECT DUPLEX DOPPLER FINDINGS: LEFT LEG: Common femoral artery: 90 cm/s, phasicity: Triphasic. Profunda femoris artery: 53 cm/s, phasicity: Biphasic. Superficial femoral artery (proximal): 95 cm/s, phasicity: Triphasic. Spectral broadening. Superficial femoral artery (mid): 99 cm/s, phasicity: Triphasic. Spectral broadening. Superficial femoral artery (distal): 86 cm/s, phasicity: Triphasic. Spectral broadening. Popliteal artery: 49 cm/s, phasicity: Triphasic. Posterior tibial artery: 120 cm/s, phasicity: Triphasic. Spectral broadening. Peroneal artery: 59 cm/s, phasicity: Triphasic. Spectral broadening. Anterior tibial artery: 34 cm/s, phasicity: Biphasic. Spectral broadening. Dorsalis pedis artery: 32 cm/s, phasicity: Biphasic. Spectral broadening. There is a 3.5 x 1.6 x 1.5 cm lobulated anechoic abnormality without flow on color Doppler interrogation in the popliteal fossa. US/US arterial duplex LE LT IMPRESSION: Left: Moderate inflow disease below the knee. 3.5 cm popliteal cyst. Electronically signed by: Julian Pichardo MD 05/27/2025 09:56 AM EDT
--- OUTSIDE RECORDS SUMMARY | 2025-05-27 08:44 | XMS_ITS | Clinical Summary ---
[facility] [place] [address] Care Team Providers Care Workers Compensation Claims Assistant Name Role Phone Wicho Moody MD Primary Care Provider [phone] Allergies No known active allergies Active Problems [...] Advance Directive 10/31/2006 Covid-19 Vaccine (1 - season) 2025 Influenza (Flu) vaccine (1 o f 1 - Influenza standard series) 04/08/2025 Insurance [facility] Advance Directives * Full Code (Latest Code Status on File) Date Activated Date Inactivated Comments 01/17/2016 9:15 PM 01/18/2016 3:23 AM Question Answer Comments Does patient have capacity to make decision: Yes Care Teams Workers Compensation Claims Assistant Relationship Specialty Start Date End Date Wicho Moody MD EMERGENCY DEPT [address] [place] [id number] PCP - General Emergency Medicine 01/17/16
== END 2025-05-27 08:23 | disposition home or self-care (01) ==
LOC: HO.US 08:22
PROVIDERS: PCP Nurse Practitioner Family; Visit Provider Nurse Practitioner Family
DX: R09.89 Other specified symptoms and signs involving the circulatory and respiratory systems (principal)
CPT/HCPCS: 93926

== ENCOUNTER → 2025-05-27 08:23 | Outpatient (BNV) | payer MEDICARE, OTHER, SELFPAY | PROVIDERS: PCP Nurse Practitioner Family; Visit Provider Radiology Diagnostic Radiology | DX: I70.212 Atherosclerosis of native arteries of extremities with intermittent claudication, left leg (principal) | CPT/HCPCS: 93926 ==

== ENCOUNTER 2025-06-13 06:50 | Outpatient (REF) | payer MEDICARE, OTHER, SELFPAY ==
--- OUTSIDE RECORDS SUMMARY | 2025-06-13 06:52 | XMS_ITS | Patient Health Record ---
Author Organization [facility] Address [address] [place] [address] Care Team Providers Care Coater Operator Insulation Board Name Role Phone Mackenzie JACKSON, Patel Primary Care Provider Jeison Conley [phone] Reason For Referral No Information Plan Of Treatment No Information Insurance Providers Payer Name Payer Address Payer Phone Subscriber Number Group Number Insured Name Patient Relationship to Insured Coverage Start Date Coverage End Date [facility] Navigator Plan(REFERR AL IS NEEDED) [address] [place] [address] [id number] KATHERINE CERON Self - patient is the insured
--- OUTSIDE RECORDS SUMMARY | 2025-06-13 06:52 | XMS_ITS | Clinical Summary ---
[facility] [place] [address] Care Team Providers Care Produce Field Merchandiser Name Role Phone Wicho Moody MD Primary Care Provider [phone] Allergies No known active allergies Active Problems [...] Advance Directive 10/31/2006 Covid-19 Vaccine (1 - 2024- season) 2025 Influenza (Flu) vaccine (1 o f 1 - Influenza standard series) 04/08/2025 Insurance [facility] Advance Directives * Full Code (Latest Code Status on File) Date Activated Date Inactivated Comments 01/17/2016 9:15 PM 01/18/2016 3:23 AM Question Answer Comments Does patient have capacity to make decision: Yes Care Teams Produce Field Merchandiser Relationship Specialty Start Date End Date Wicho Moody MD EMERGENCY DEPT [address] [place] [id number] PCP - General Emergency Medicine 01/17/16
[2025-06-13 10:12] LABS: MANUAL DIFF FLAG NO
[2025-06-13 10:42] LABS: Hematocrit 50.3 % (42.0-52.0); Hemoglobin 16.0 g/dl (14.0-18.0); Imm Gran Abs Auto 0.05 X10*3/uL (0.00-0.03); Imm Gran Pct Auto 0.9 % (0.0-0.4); Lymphocytes Absolute Auto 1.2 X10*3/uL (1.2-4.9); Mean Corpuscular HGB Conc 31.8 g/dl (31.0-36.0); Mean Corpuscular Hemoglobin 28.4 pg (27.0-33.0); Mean Corpuscular Volume 89.3 fL (80.0-98.0); NRBC Abs Auto 0.000 X10*3/uL (0.0-0.012); NRBC Pct Auto 0.0 /100WBC (0.0-0.2); Platelet Count 168 X10*3/uL (160-400); Red Blood Count 5.63 X10*6/uL (4.60-5.80); White Blood Count 5.8 X10*3/uL (4.8-10.8)
[2025-06-13 10:46] LABS: Alanine Aminotransferase 16 U/L (0-40); Albumin Level 4.3 g/dL (3.5-5.0); Alkaline Phosphatase 62 U/L (39-117); Anion Gap 9 (12-20); Aspartate Amino Transferase 25 U/L (5-37); Blood Urea Nitrogen 24 mg/dL (9-16); Calcium 8.9 mg/dL (8.4-10.2); Carbon Dioxide 28 mmol/L (22-29); Chloride 111 mmol/L (96-108); Cholesterol 115 mg/dL (<200); Estimated Glomerular Filt Rate 53; HDL Cholesterol 41 mg/dL (>40); Potassium 4.1 mmol/L (3.3-5.1); Sodium 144 mmol/L (135-145); Total Protein 6.4 g/dL (6.5-8.0); Triglycerides 82 mg/dL (<150)
[2025-06-13 10:58] LABS: Appearance Urine Clear; Glucose Urine UA Negative (Negative); PH 6.0 (5.0-9.0); Specific Gravity - Urine 1.020 (1.005-1.025)
[2025-06-13 11:24] LABS: Total Protein Urine Random 14 mg/dL (<12)
== END 2025-06-13 06:51 | disposition home or self-care (01) ==
LOC: HO.HMGCLDS 06:50
PROVIDERS: Absent Provider Internal Medicine Hypertension Specialist; PCP Nurse Practitioner Family; Visit Provider Nurse Practitioner Family
DX: E11.22 Type 2 diabetes mellitus with diabetic chronic kidney disease (principal); N18.9 Chronic kidney disease, unspecified; N28.1 Cyst of kidney, acquired
CPT/HCPCS: 36415; 80048; 80053; 80061; 81003; 82570; 84156; 84443; 85025

== ENCOUNTER 2025-06-20 09:36 | Outpatient (AMB) | payer MEDICARE, OTHER, SELFPAY ==
[2025-06-20 09:43] VITALS: BP 144/70; PULSE 66; O2SAT 96; BMI 29.5
--- NOTE | 2025-06-20 09:43 | HO.NEPHOV_ITS ---
Vital Signs 06/20/25 09:43 Height 5 ft 8 in Weight 194 lb BMI 29.5 BP 144/70 H Blood Pressure Location Lt brachial Position Sitting Pulse 66 Pulse Source Pulse Oximeter Pulse Oximetry (%) 96 Oxygen Delivery Method Room Air Intake Visit Reasons: 6 MO FU Can Dragger Required: No Accompanied by: Self / Same As Patient Allergies sulfamethoxazole (From BACTRIM) Allergy (Intermediate, Verified 06/20/25 09:44) HIVES trimethoprim (From BACTRIM) Allergy (Intermediate, Verified 06/20/25 09:44) HIVES Medication List - Last Reconciled 06/20/25 by Dimitrios Vargas MD alfuzosin ER 10 mg PO DAILY atorvastatin 20 mg PO BEDTIME 90 days blood sugar diagnostic (FreeStyle Lite Strips) As directed cetirizine (All Day Allergy (cetirizine)) 10 mg PO DAILY PRN hydrocortisone-acetic acid 1-2 % 1 drp otic (ears) NEEDED lisinopril 10 mg PO DAILY meclizine 25 mg PO BID PRN 20 days omeprazole magnesium (Prilosec OTC) 20 mg PO DAILY HPI Comments Details: 72-year-old man with a history of longstanding hypertension. He was on lisin opril 20/12.5 mg 1 a day. He was feeling lightheaded. This has been decreased to half a tablet a day. He has been watching his blood pressure at home. Usually blood pressure control. He states sometimes blood pressure goes of while in the doctor's office. Nine he suspects he might have white coat hypertension. Serum creatinine is 1.29. Last year creatinine was 1.4. There has been fluc tuations in creatinine 1.4-1.2. He has been referred for evaluation renal insufficiency. History of subdural hematoma few years ago. This was secondary to trauma. 07/28/23: HCTZ was stopped. NO improvement in creatinine ;Baseline is 1.33 ; Home SBP is 147 and 148 ;Has some difficulty urinating Waiting to see Urology 10/30 ;Events noted ;USG shows cysts with possible complex cyst ;Waiting for CT scan ;Seen by Torres Ram for Polycyethemia 01/30/2024 Here for follow-up. Blood pressure is well controlled. Seen by Dr. Us and waiting for a CT scan of the chest. 07/03/24;s/p Knee replacement -right 5 weeks ago ;Seen by and Oncology 12/17/24: Still has knee pain. Doing well from a renal stand point; NO urinary issues/No hematuria 06/20/25 The patient is a 74-year-old male presenting with hypertension and CKD with polycythemia. The patient reports occasional high blood pressure readings at home, and he experiences white coat syndrome during doctor visits. Polycythemia is being managed by regular phlebotomy every three months to reduce the high hemoglobin count. The patient is scheduled for his next phlebotomy session next Tuesday. The patient also reports knee pain, for which he occasionally takes Tylenol or Aleve. He is advised to limit the use of NSAIDs to avoid renal complications. A renal cyst is being monitored by a urologist [facility] Medical History History of subdural hematoma (~2017) Diabetes (~2021) History of MRSA infection (~2014) Hx of vertigo Sleep apnea GERD (gastroesophageal reflux disease) Hypertension Hyperlipidemia Surgical History History of total right knee replacement S/P scrotal varicocelectomy History of brain surgery History of endoscopy History of vasectomy History of varicose vein stripping History of appendectomy History of colonoscopy History of incision and drainage Family History Father Diabetes Hypertension Mother No problems noted. Social History Housing: House Are you a primary primary care sales representative to a significant other at home: No Do you presently have visiting nurse or other home services: No Alcohol intake: current Alcohol intake frequency: a few times a week Patient Tobacco Use Status: Former Tobacco user Tobacco use type: Cigarette Years Smoked: 5 e-Cigarette/Vaping Use: Never Used Second Hand Smoke Exposure: No Advance Directives Date on File: 02/02/21 service: Yes Current occupational status: retired Cognitive needs: No Hearing needs: No Vision needs: No Physical Exam Vital Signs: Last Vital Signs Pulse 66 06/20/25 09:43 BP 144/70 H 06/20/25 09:43 Pulse Ox 96 06/20/25 09:43 Oxygen Delivery Method Room Air 06/20/25 09:43 BMI result Body Mass Index 29.5 Const General: comfortable; No acute distress Orientation/consciousness: patient oriented x3 Eyes General: appearance normal, both eyes and all related structures Visual Tinoco: normal visual tinoco by confrontation Neck Neck: Yes supple and Yes no JVD Resp Effort & Inspection: normal respiratory effort and respiratory effort not decreased Cardio Palpation: no palpable S3 and no palpable S4 Heart sounds: no rubs GI Inspection: Yes normal to inspection Palpation (GI): Soft to palpation Percussion: Yes normal to percussion Auscultation: normal bowel sounds General: Yes no CVA tenderness Back/Spine/Pelvis Back: no CVA tenderness Skin General skin exam: no petechiae and no purpura Neuro General: patient oriented x3 and no focal motor deficits Extrem General: No clubbing and No edema Results Reviewed Nephrology Results: Hgb, (14.0-18.0) 16.0 g/dl 06/13/25 WBC, (4.8-10.8) 5.8 X10*3/uL 06/13/25 Plt Count, (160-400) 168 X10*3/uL 06/13/25 Sodium, (135-145) 144 mmol/L 06/13/25 Potassium, (3.3-5.1) 4.1 mmol/L 06/13/25 Chloride, (96-108) 111 mmol/L H 06/13/25 Carbon Dioxide, (22-29) 28 mmol/L 06/13/25 BUN, (9-16) 24 mg/dL H 06/13/25 Creatinine, (0.5-1.4) 1.32 mg/dL 06/13/25 Calcium, (8.4-10.2) 8.9 mg/dL 06/13/25 Urine Protein, (Neg-Trace) Negative mg/dL 06/13/25 Urine Creatinine 150.73 mg/dL 06/13/25 Renal US 08/03/23 Assessment & Plan Assessment & Plan (1) CKD (chronic kidney disease): Code(s): N18.9 - Chronic kidney disease, unspecified Category: Medical (2) Microalbuminuria: Code(s): R80.9 - Proteinuria, unspecified Category: Medical (3) HTN (hypertension): Code(s): I10 - Essential (primary) hypertension Category: Medical (4) Polycythemia: Code(s): D75.1 - Secondary polycythemia Category: Medical (5) Restrictive lung disease: Code(s): J98.4 - Other disorders of lung Category: Medical (6) Bilateral renal cysts: Code(s): N28.1 - Cyst of kidney, acquired Category: Medical (7) Polycythemia: Code(s): D75.1 - Secondary polycythemia Category: Medical Plan 74 year old man with CKD in setting hypertension and CKD Keep Lisinopril 10 mg QD monitor his blood pressure at home. ADD AMlodipine 2.5 mg daily Renal function stable. Serum creatinine has improved - down to 1.3 No need for 24 hour ambulatory blood pressure monitoring yet The meantime stay on low-sodium diet / increase fluid intake. renal ultrasonogram shows multiple cyst with possible complex cyst CT scan revealed multiple simple cysts. But 3 cysts were indeterminate. Follow-up CT scan -essentially unchanged We will defer to Urology. No significant l proteinuria at this time. No significant hematuria and interstitial nephritis seems unlikely at this point. Polycythemia - probably due to Restrictive lung diz. erythropoeitin leve is appropriate at 12.2 Agree with Therapeutic phlebotomy Follow with Oncology Orders: Orders Basic Metabolic Panel 4 Months I10 - Essential (primary) hypertension Medications: New amlodipine 2.5 mg PO DAILY 90 tabs 1RF Coding Level of Care Code Est Pt Level 4 (94598) Diagnoses CKD (chronic kidney disease) N18.9 Microalbuminuria R80.9 HTN (hypertension) I10 Polycythemia D75.1 Restrictive lung disease J98.4 Bilateral renal cysts N28.1
--- OUTSIDE RECORDS SUMMARY | 2025-06-20 11:06 | XMS_ITS | Clinical Summary ---
Author Organization [facility] [place] [address] Care Team Providers Care Life Science Technical Officer Name Role Phone Wicho Moody MD Primary Care Provider Allergies No known active allergies Active Problems [...] 1 - Influenza standard series) 04/08/2025 Insurance [facility] Advance Directives * Full Code (Latest Code Status on File) Date Activated Date Inactivated Comments 01/17/2016 9:15 PM 01/18/2016 3:23 AM Question Answer Comments Does patient have capacity to make decision: Yes Care Teams Life Science Technical Officer Relationship Specialty Start Date End Date Wicho Moody MD EMERGENCY DEPT [address] [place] [id number] PCP - General Emergency Medicine 01/17/16
--- OUTSIDE RECORDS SUMMARY | 2025-06-20 11:06 | XMS_ITS | Patient Health Record ---
Author Organization [facility] Address [address] [place] [address] Care Team Providers Care Litigation Attorney Associate Name Role Phone Mackenzie JACKSON, Patel Primary Care Provider Jeison Conley [phone] Reason For Referral No Information Plan Of Treatment No Information Insurance Providers Payer Name Payer Address Payer Phone Subscriber Number Group Number Insured Name Patient Relationship to Insured Coverage Start Date Coverage End Date [facility] Navigator Plan(REFERR AL IS NEEDED) [address] [place] [address] [id number] KATHERINE CERON Self - patient is the insured
== END 2025-06-20 09:57 | disposition home or self-care (01) ==
LOC: HO.HKA 09:37
PROVIDERS: PCP Nurse Practitioner Family; Visit Provider Internal Medicine Hypertension Specialist
DX: I12.9 Hypertensive chronic kidney disease with stage 1 through stage 4 chronic kidney disease, or unspecified chronic kidney disease (principal); N18.9 Chronic kidney disease, unspecified; R80.9 Proteinuria, unspecified; D75.1 Secondary polycythemia; J98.4 Other disorders of lung; N28.1 Cyst of kidney, acquired
CPT/HCPCS: 99214

== ENCOUNTER → 2025-06-20 09:36 | Outpatient (BNVA) | payer MEDICARE, OTHER, SELFPAY | PROVIDERS: PCP Nurse Practitioner Family; Visit Provider Internal Medicine Hypertension Specialist | DX: I12.9 Hypertensive chronic kidney disease with stage 1 through stage 4 chronic kidney disease, or unspecified chronic kidney disease (principal); E11.22 Type 2 diabetes mellitus with diabetic chronic kidney disease; N18.9 Chronic kidney disease, unspecified; Z87.891 Personal history of nicotine dependence; R80.9 Proteinuria, unspecified; D75.1 Secondary polycythemia; J98.4 Other disorders of lung; N28.1 Cyst of kidney, acquired | CPT/HCPCS: 99212 ==

== ENCOUNTER 2025-06-27 09:48 | Outpatient (AMB) | payer MEDICARE, OTHER, SELFPAY ==
--- NOTE | 2025-06-27 09:51 | MHC.OFFVIS ---
Intake Visit Reasons: PRN follow up s/p Arterial US 05/27/25 Intake Note: Patient presents for follow up arterial US performed on 05/27/25. Patient states his primary care told him told him to follow up with Vascular. Accompanied by: Self / Same As Patient Allergies sulfamethoxazole (From BACTRIM) Allergy (Intermediate, Verified 06/27/25 09:52) HIVES trimethoprim (From BACTRIM) Allergy (Intermediate, Verified 06/27/25 09:52) HIVES HPI HPI PRN follow up s/p Arterial US 05/27/25: Details: The patient is a 74 year old individual presenting for evaluation of a Adame's cyst. A couple of months ago, during a physical exam, the patient's primary care provider noted a finding in the leg and ordered an ultrasound, which revealed a Adame's cyst. The patient denies any pain or other symptoms associated with the left leg cyst. The patient has a history of venous disease and also had a knee replacement last year on the other knee, where there was also a Adame's cyst. [facility] Medical History History of subdural hematoma (~2017) Diabetes (~2021) History of MRSA infection (~2014) Hx of vertigo Sleep apnea GERD (gastroesophageal reflux disease) Hypertension Hyperlipidemia Surgical History History of total right knee replacement S/P scrotal varicocelectomy History of brain surgery History of endoscopy History of vasectomy History of varicose vein stripping History of appendectomy History of colonoscopy History of incision and drainage Family History Father Diabetes Hypertension Mother No problems noted. Social History Housing: House Are you a primary patient centered care specialist to a significant other at home: No Do you presently have visiting nurse or other home services: No Alcohol intake: current Alcohol intake frequency: a few times a week Patient Tobacco Use Status: Former Tobacco user Tobacco use type: Cigarette Years Smoked: 5 e-Cigarette/Vaping Use: Never Used Second Hand Smoke Exposure: No Advance Directives Date on File: 02/02/21 service: Yes Current occupational status: retired Cognitive needs: No Hearing needs: No Vision needs: No Review of Systems Const All systems reviewed & are unremarkable except as noted in HPI and below Reports no additional complaints ENT Reports Normal hearing present Card Denies chest pain, Denies chest pain at rest, Denies chest pain with activity and Denies pedal edema Resp Denies cough GI Denies abdominal pain Musc Denies abnormal gait, Denies muscle cramps and Denies radiating pain into limb Skin/Breast Denies skin ulcer and Denies wounds Neuro Reports Normal hearing present and Denies abnormal gait Psych Reports no additional complaints Physical Exam Const General: cooperative, healthy appearing and comfortable Orientation/consciousness: oriented to person, oriented to place and oriented to time HEENT Head: Yes normal to inspection Neck Neck: Yes normal visual inspection Carotids: no bruits Chest Chest palpation & inspection: normal inspection of the chest Resp Effort & Inspection: normal respiratory effort and able to speak in complete sentences Auscultation: clear to auscultation bilaterally, no crackles, no rales, no rhonchi and no wheezes Cardio Other: Bilateral palpable dorsalis pedis pulses Rate: regular rate Rhythm: regular rhythm Heart sounds: S1 normal heart sound present and S2 normal heart sound present Bruits: no carotid bruits Peripheral pulses: Peripheral pulses 2+ throughout GI Inspection: Yes normal to inspection Skin Wounds: no wounds Hair: normal Neuro General: oriented to person, oriented to place and oriented to time Cranial nerves: Yes CN's II-XII intact bilaterally and Yes Normal hearing present Cognition (Neuro): normal cognition Motor exam (neuro): 5/5 motor strength present throughout Extrem Other: venous exam: No significant superficial varicosities or spider telangiectasias, minimal edema General: No clubbing, No cyanosis and No edema Psych Appearance: grossly normal Mental Status: mental status grossly normal Speech and movement: Normal speech and movement present Results Reviewed Results Reviewed: Noninvasive arterial testing dated 05/27/2025 demonstrates good arterial flow with an incidental finding of a 3.5 cm popliteal cyst. Assessment & Plan Assessment & Plan (1) Adame's cyst, unruptured: Code(s): M71.20 - Synovial cyst of popliteal space [Adame], unspecified knee Category: Medical Plan: I reviewed the ultrasound results with the patient, confirming the presence of a 3.5 cm Adame's cyst in the left popliteal fossa. I explained that since the cyst is asymptomatic, the best course of action is conservative management. I detailed the risks associated with surgical excision in this area, noting the proximity of important arteries, veins, and nerves, which makes surgery potentially more harmful than beneficial in this case. I advised that we would only consider intervention if the cyst grows significantly larger and starts to cause pain or discomfort, limited mobility, or ruptures. I reassured the patient that there is no cause for concern at this time. He will follow up with us on an as-needed basis. Thank you for allowing us to assist in his care. (2) Varicose veins of right lower extremity with inflammation: Comment: June 2019- right GSV Radiofrequency ablation and microphlebectomy x2 03/28/2023- right leg microphlebectomy Code(s): I83.11 - Varicose veins of right lower extremity with inflammation Category: Medical Plan: Stable follow up PRN Coding Level of Care Code Est Pt Level 4 (04421) Diagnoses Adame's cyst, unruptured M71.20 Varicose veins of right lower extremity with inflammation I83.11
--- OUTSIDE RECORDS SUMMARY | 2025-06-27 14:11 | XMS_ITS | Patient Health Record ---
Author Organization [facility] Address [address] [place] [address] Care Team Providers Care Last Cleaner Name Role Phone Mackenzie JACKSON, Patel Primary Care Provider Jeison Conley [phone] Reason For Referral No Information Plan Of Treatment No Information Insurance Providers Payer Name Payer Address Payer Phone Subscriber Number Group Number Insured Name Patient Relationship to Insured Coverage Start Date Coverage End Date [facility] Navigator Plan(REFERR AL IS NEEDED) [address] [place] [address] [id number] KATHERINE CERON Self - patient is the insured
== END 2025-06-27 10:07 | disposition home or self-care (01) ==
LOC: HO.HVS 09:49
PROVIDERS: PCP Nurse Practitioner Family; Visit Provider Surgery Vascular Surgery
DX: M71.20 Synovial cyst of popliteal space [Baker], unspecified knee (principal); I83.11 Varicose veins of right lower extremity with inflammation
CPT/HCPCS: 99214

== ENCOUNTER → 2025-06-27 09:48 | Outpatient (BNVA) | payer MEDICARE, OTHER, SELFPAY | PROVIDERS: PCP Nurse Practitioner Family; Visit Provider Surgery Vascular Surgery | DX: M71.22 Synovial cyst of popliteal space [Baker], left knee (principal); I83.11 Varicose veins of right lower extremity with inflammation | CPT/HCPCS: 99212 ==

== ENCOUNTER 2025-06-28 07:59 | Outpatient (REF) | payer MEDICARE, OTHER, SELFPAY ==
--- OUTSIDE RECORDS SUMMARY | 2025-06-28 08:01 | XMS_ITS | Patient Health Record ---
Author Organization [facility] Address [address] [place] [address] Care Team Providers Care Static Balancer Name Role Phone Mackenzie JACKSON, Patel Primary Care Provider Jeison Conley [phone] Reason For Referral No Information Plan Of Treatment No Information Insurance Providers Payer Name Payer Address Payer Phone Subscriber Number Group Number Insured Name Patient Relationship to Insured Coverage Start Date Coverage End Date [facility] Navigator Plan(REFERR AL IS NEEDED) [address] [place] [address] [id number] KATHERINE CERON Self - patient is the insured
== END 2025-06-28 08:00 | disposition home or self-care (01) ==
LOC: HO.BBR 07:59
PROVIDERS: PCP Nurse Practitioner Family; Visit Provider Internal Medicine Medical Oncology
DX: D75.1 Secondary polycythemia (principal)
CPT/HCPCS: 85018; 99195

== ENCOUNTER 2025-07-31 06:43 | Outpatient (AMB) | payer MEDICARE, OTHER, SELFPAY ==
--- OUTSIDE RECORDS SUMMARY | 2025-07-31 06:47 | XMS_ITS | Patient Health Record ---
Author Organization [facility] Address [address] [place] [address] Care Team Providers Care Community Service Specialist Name Role Phone Mackenzie JACKSON, Patel Primary Care Provider Jeison Conley [phone] Reason For Referral No Information Plan Of Treatment No Information Insurance Providers Payer Name Payer Address Payer Phone Subscriber Number Group Number Insured Name Patient Relationship to Insured Coverage Start Date Coverage End Date [facility] Navigator Plan(REFERR AL IS NEEDED) [address] [place] [address] [id number] KATHERINE CERON Self - patient is the insured
--- OUTSIDE RECORDS SUMMARY | 2025-07-31 06:47 | XMS_ITS | Clinical Summary ---
[facility] [place] [address] Care Team Providers Care Machine Lacer Name Role Phone Wicho Moody MD Primary Care Provider [phone] Allergies No known active allergies Active Problems [...] 1 - Influenza standard series) 04/08/2025 Insurance [facility] Advance Directives * Full Code (Latest Code Status on File) Date Activated Date Inactivated Comments 01/17/2016 9:15 PM 01/18/2016 3:23 AM Question Answer Comments Does patient have capacity to make decision: Yes Care Teams Machine Lacer Relationship Specialty Start Date End Date Wicho Moody MD EMERGENCY DEPT [address] [place] [id number] PCP - General Emergency Medicine 01/17/16
--- NOTE | 2025-07-31 07:47 | A.OFFPC_ITS ---
Intake Visit Reasons: WBC concerns, hair loss [phone] Allergies sulfamethoxazole (From BACTRIM) Allergy (Intermediate, Verified 06/27/25 09:52) HIVES trimethoprim (From BACTRIM) Allergy (Intermediate, Verified 06/27/25 09:52) HIVES Tobacco use date assessed: 03/21/25 Dental Screening Dental Screen Date: 03/21/25 HPI WBC concerns, hair loss [phone] HPI Details History of Present Illness The patient is a 74-year-old male presenting for a telehealth follow-up visit to discuss recent lab results. He expressed concern regarding his recent complete blood count (CBC), which showed immature granulocytes at 0.9% and absolute immature granulocytes at 0.05. The patient is asymptomatic and reports feeling well. He has a history of erythrocytosis and sees a endoscopy registered nurse regularly, with his next follow-up scheduled for September. He also has a history of a stable lung nodule, with the last chest CT scan performed in February 2024. His health screenings are all up to date. The patient reports a slight increase in hair loss, which has been an ongoing issue for many years, and his most recent TSH level was within normal limits. He states his blood pressure is mostly stable but can fluctuate with anxiety, suggestive of white coat syndrome. Review of Systems - General: Reports feeling well. - Cardiovascular: Denies chest pain. - Respiratory: Denies shortness of breat h. - Neurological: Denies dizziness. - Eyes: Denies blurred vision. - Integumentary: Reports a slight increa se in hair loss, which has been ongoing for many years. - Psychiatric: Reports anxiety can cause his blood pressure to fluctuate. Plan 1. Abnormal Lab Findings The patient is concerned about recent lab results showing immature granulocytes at 0.9% and an absolute count of 0.05. These are considered small fluctuations, and the patient is asymptomatic. A repeat CBC will be ordered today for monitoring. 2. Erythrocytosis The patient has a known history of erythrocytosis and is followed by a endoscopy registered nurse. He will continue with his scheduled follow-up with hematology in September. 3. White Coat Hypertension The patient reports his blood pressure is mostly stable but can fluctuate with anxiety, consistent with white coat syndrome. Blood pressure will continue to be monitored. 4. Lung Nodule The patient has a history of a stable lung nodule previously followed by pulmonology, with the last chest CT in February 2024. No new plan was initiated at this visit. 5. Alopecia The patient notes a slight increase in hair loss, which has been ongoing for many years. A recent TSH was within normal limits. This will be monitored. Discussion Notes I discussed the patient's concern about his recent CBC results, noting that the elevation in immature granulocytes represents a small fluctuation and he is currently asymptomatic. I informed him that we will repeat the CBC today for monitoring. I advised him to proceed with his scheduled follow-up with his endoscopy registered nurse in September for his erythrocytosis. We also discussed that his blood pressure can fluctuate with anxiety, and we will continue to monitor this. I have scheduled a follow-up appointment with him in less than two months. Patient Instructions - Please go to the lab to have your bloo d drawn for a CBC test today. - Keep your scheduled appointment with y our endoscopy registered nurse (blood doctor) in September. - Continue to monitor your blood pressur e. - We will see you back for a follow-up v isit in less than two months. - Contact the office if you begin to fee l unwell or experience new symptoms such as dizziness, blurred vision, chest pain, or shortness of breath. [facility] Medical History History of subdural hematoma (~2017) Diabetes (~2021) History of MRSA infection (~2014) Hx of vertigo Sleep apnea GERD (gastroesophageal reflux disease) Hypertension Hyperlipidemia Surgical History History of total right knee replacement S/P scrotal varicocelectomy History of brain surgery History of endoscopy History of vasectomy History of varicose vein stripping History of appendectomy History of colonoscopy History of incision and drainage Family History Father Diabetes Hypertension Mother No problems noted. Social History Housing: House Are you a primary direct care staffer to a significant other at home: No Do you presently have visiting nurse or other home services: No Alcohol intake: current Alcohol intake frequency: a few times a week Patient Tobacco Use Status: Former Tobacco user Tobacco use type: Cigarette Years Smoked: 5 e-Cigarette/Vaping Use: Never Used Second Hand Smoke Exposure: No Advance Directives Date on File: 02/02/21 service: Yes Current occupational status: retired Cognitive needs: No Hearing needs: No Vision needs: No Questionnaire Thrive Questionnaire Date Thrive assessed: 09/06/24 I am a: Patient What is your living situation today?: I have a steady place to live Within the past 12 months, did the food you bought not last and you didn't have the money to get more?: Never true Within the past 12 months, did you worry whether your food would run out before you got money to buy more?: Never true Do you have trouble paying for medicines?: No Do you have trouble getting transportation to medical appointments?: No Do you have trouble paying your heating and electricity bill?: No Do you have trouble taking care of your child, family member or friend?: No Do you have trouble with day-to-day activities such as bathing, preparing meals, shopping, managing finances, etc.?: No Are you currently unemployed and looking for a job?: No Are you interested in more education?: No Currently or been in a relationship where the following occur: I choose not to answer THRIVE Score: 0 JESUS-7 AMB Questionnaire JESUS-7 Date JESUS - 7 assessed: 03/21/25 Source: Developed by Drs. Jeison Sampson, Kenyatta Brock, Marc Medrano and colleagues, with an educational ele from [employer]. Physical exam (Primary Care) Tobacco/Smoking Status: Tobacco use Status Tobacco use date assessed 03/21/25 07/30/25 12:09 Patient Tobacco Use Status Former Tobacco user 07/30/25 12:09 Tobacco use type Cigarette 07/30/25 12:09 e-Cigarette/Vaping Use Never Used 07/30/25 12:09 Thrive Assessment: Date of Thrive Assessment Date Thrive assessed 09/06/24 07/30/25 12:09 Currently or been in a relationship where the following occur: I choose not to answer Telehealth Telehealth Telehealth Platform: [employer] Location of provider rendering services: practice address Location of patient: address on file Patient Identification confirmed using: Name, : Yes Telehealth method: video Patient verbally consented to treatment: Yes Patient verbally consented to billing insurance company: Yes Patient informed of any privacy concerns related to visit: Yes Minutes spent on Phone/Video with Pt.: 12 Coding Level of Care Code Tele Est Pt Level 3 (62396) Diagnoses Abnormal CBC R79.89 HTN (hypertension) I10 Assessment & Plan Assessment & Plan (1) Abnormal CBC: Code(s): R79.89 - Other specified abnormal findings of blood chemistry Category: Medical (2) HTN (hypertension): Code(s): I10 - Essential (primary) hypertension Category: Medical Plan . Orders: Orders Complete Blood Count Auto Diff Today I10 - Essential (primary) hypertension
== END 2025-07-31 09:06 | disposition home or self-care (01) ==
LOC: HO.HMCC 06:44
PROVIDERS: PCP Nurse Practitioner Family; Visit Provider Nurse Practitioner Family
DX: R79.89 Other specified abnormal findings of blood chemistry (principal); I10 Essential (primary) hypertension

== ENCOUNTER 2025-08-02 09:11 | Outpatient (REF) | payer MEDICARE, OTHER, SELFPAY ==
--- NOTE | ~2025-08-02 | XR_ITS ---
EXAMINATION: XR CHEST CLINICAL INFORMATION: D72.829 - Elevated white blood cell count, unspecified COMPARISON: X-ray 11/09/2021 TECHNIQUE: 2 views of the chest were obtained. FINDINGS: Cardiomediastinal silhouette is within normal limits. Lungs are well-expanded. Hazy opacity in the in the medial, right lower lung.. Streaky opacity in the left lower lung, similar to previous. No effusion. No edema. No pneumothorax. No acute osseous findings. Thoracic spine spondylosis.. XR/XR chest 2V IMPRESSION: Hazy opacity in the medial right lower lung could reflect inflammatory/infectious process. Electronically signed by: Osmar Kevin MD 08/02/2025 09:29 AM RUSSELL
--- OUTSIDE RECORDS SUMMARY | 2025-08-02 09:14 | XMS_ITS | Clinical Summary ---
[facility] [place] [address] Care Team Providers Care Modeling Teacher Name Role Phone Wicho Moody MD Primary Care Provider [phone] Allergies No known active allergies Active Problems [...] 1 - Influenza standard series) 04/08/2025 Insurance [facility] Advance Directives * Full Code (Latest Code Status on File) Date Activated Date Inactivated Comments 01/17/2016 9:15 PM 01/18/2016 3:23 AM Question Answer Comments Does patient have capacity to make decision: Yes Care Teams Modeling Teacher Relationship Specialty Start Date End Date Wicho Moody MD EMERGENCY DEPT [address] [place] [id number] PCP - General Emergency Medicine 01/17/16
--- OUTSIDE RECORDS SUMMARY | 2025-08-02 09:14 | XMS_ITS | Patient Health Record ---
Author Organization [facility] Address [address] [place] [address] Care Team Providers Care Camera Assembler Name Role Phone Mackenzie JACKSON, Patel Primary Care Provider Jeison Conley [phone] Reason For Referral No Information Plan Of Treatment No Information Insurance Providers Payer Name Payer Address Payer Phone Subscriber Number Group Number Insured Name Patient Relationship to Insured Coverage Start Date Coverage End Date [facility] Navigator Plan(REFERR AL IS NEEDED) [address] [place] [address] [phone] [id number] KATHERINE CERON Self - patient is the insured
[2025-08-02 14:49] LABS: Appearance Urine Clear; Glucose Urine UA Negative (Negative); PH 6.0 (5.0-9.0); Specific Gravity - Urine 1.020 (1.005-1.025)
== END 2025-08-02 09:12 | disposition home or self-care (01) ==
LOC: HO.HMGCX 09:11
PROVIDERS: PCP Nurse Practitioner Family; Visit Provider Nurse Practitioner Family
DX: D72.829 Elevated white blood cell count, unspecified (principal)
CPT/HCPCS: 71046; 81003

== ENCOUNTER → 2025-08-02 09:14 | Outpatient (BNV) | payer MEDICARE, OTHER, SELFPAY | PROVIDERS: PCP Nurse Practitioner Family; Visit Provider Radiology Diagnostic Ultrasound | DX: D72.829 Elevated white blood cell count, unspecified (principal); R91.8 Other nonspecific abnormal finding of lung field | CPT/HCPCS: 71046 ==